=== PATIENT | female | born 1940 | race African-American/Black ===

== ENCOUNTER 2017-09-03 07:02 | Day surgery (SDC) | payer MEDICARE ==
[2017-09-03] MEDS ORDERED: NALOXONE HCL INJ/PF 0.4 MG/1 ML SDV ONE (07:20)
[2017-09-03] MEDS ORDERED: MIDAZOLAM 2 MG/2 ML INJ ONE (07:20)
[2017-09-03] MEDS ORDERED: ONDANSETRON HCL INJ/PF 4 MG/2 ML SDV ONE (07:20)
[2017-09-03] MEDS ORDERED: EPINEPHRINE INJ 1 MG/10 ML DISP.SYRIN ONE (07:21)
[2017-09-03] MEDS ORDERED: GLUCAGON,HUMAN RECOMB 1 MG INJ ONE (07:21)
[2017-09-03] MEDS ORDERED: FLUMAZENIL INJ 0.5 MG/5 ML VIAL ONE (07:21)
[2017-09-03] MEDS: FENTANYL CITRATE INJ/PF 100 MCG/2 ML AMPUL ONE ×2 (07:39→07:44)
--- NOTE | 2017-09-03 08:13 | PDOC DISCHARGE SUMMARY ---
Discharge Summary (SDC) - Discharge Final Diagnosis: colonic polyps Date of Surgery: 09/03/17 Discharge Date: 09/03/17 Condition: Good Treatment or Instructions: [facility] [place] [id number] POST ENDOSCOPY DISCHARGE INSTRUCTIONS 1. Diet: Start clear liquids that a regular diet as tolerated. 2. Resume all preoperative medications. All oral anticoagulants and aspirins can be resumed 24 hours after procedure. 3. If a polypectomy was performed some bleeding per rectum may occur. This should stop within 3 days. If not, please contact the office. 4. If you had a colonoscopy you may experience some bloating and delayed return of normal bowel function for several days, your regular bowel movement pattern should resume within a week. 5. Please contact [facility] at to make an appointment with Dr. Duncan for 1 to 3 weeks following procedure. 6. If you have any questions or concerns regarding your care,treatment plan or follow up, please contact our office. 7. Per clinical guidelines we recommend you undergo a repeat colonoscopy in three years. Referrals: JUAN CALDERON MD [Primary Care Provider] - Discharge Diet: As Tolerated Discharge Activity: Activity As Tolerated Home Care Assistance: None Needed Report the Following to Your Physician Immediately: Shortness of Breath, Increase in Pain, Fever over 101 Degrees
--- NOTE | 2017-09-03 08:53 | OPERATIVE REPORT E ---
Operative Report NAME: REGULO HINES : 1940 AGE: 77Y DATE OF SURGERY: 09/03/2017 ROOM: PREOPERATIVE DIAGNOSIS: Need for screening colonoscopy in average risk patient for colorectal carcinoma. POSTOPERATIVE DIAGNOSIS: Need for screening colonoscopy in average risk patient for colorectal carcinoma with 2 ascending colon polyps. PROCEDURES: 1. Total colonoscopy to the cecum with photo documentation. 2. Ascending colon polypectomy. SURGEON: KATIE MICHEL M.D. ANESTHESIA: Conscious sedation. COMPLICATIONS: None. ESTIMATED BLOOD LOSS: None. DRAINS: None. TISSUE REMOVED OR ALTERED: One polyp. FINDINGS: See below. SUMMARY OF PROCEDURE: After obtaining informed consent, the patient was taken to the endoscopy suite where she was placed in the supine position, surgical timeout conducted. Appropriate level of conscious sedation induced. Patient was placed in the left lateral decubitus position. Rectal exam was performed. There was no visible path of light of active pathology. The flexible adult colonoscope was advanced through the anorectal canal all the way to the cecum. Visualization of the relevant cecal anatomy, including ileocecal valve, appendiceal orifice were appreciated. Photos were taken. This was an excellent study on a well-prepped bowel. The scope was withdrawn slowly examining the mucosa carefully. In the ascending colon were 2 polyps, 1 approximately 3 mm, the other approximately 3.5 mm in diameter, both sessile. The first polyp was removed with a hot snare device medium strength, and retrieved with the trap. It was labeled ascending colon polyp. We did reinspect the polypectomy site and there was evidence of full mucosal removal. The deeper layers of the bowel wall appeared to be intact. Photo taken. The second small ascending colon polyp was sessile and very awkward to both visualize and reposition in a satisfactory manner to facilitate removal, so it was left in situ. The scope was withdrawn the length of the colon checking the mucosa carefully. No other polyps, tumors, or strictures seen. The scope was brought back through the anorectal canal. No other pathology seen. The patient tolerated the procedure well. She was taken to the post endoscopy recovery area in stable condition. Per surveillance guidelines, the patient will be appropriate candidate for followup colonoscopy in 3 years, or sooner if symptoms develop. DICTATING PHYSICIAN: KATIE MICHEL M.D. [id number] PHY#: [id number] ID: [id number] JOB#: [id number] ACCT: [id number] cc:KATIE MICHEL M.D. >
[2017-09-03 09:15] VITALS: BP 135/78
== END 2017-09-03 09:22 | disposition home or self-care (01) ==
LOC: END 07:02
PROVIDERS: ATTEND Surgery
PROC: 0DBK8ZX Excision of Ascending Colon, Via Natural or Artificial Opening Endoscopic, Diagnostic (ICD-10-PCS; principal; 2017-09-03 07:30)
DX: Z12.11 Encounter for screening for malignant neoplasm of colon (principal); D12.2 Benign neoplasm of ascending colon; M19.90 Unspecified osteoarthritis, unspecified site; E78.00 Pure hypercholesterolemia, unspecified; I10 Essential (primary) hypertension; I25.10 Atherosclerotic heart disease of native coronary artery without angina pectoris; Z79.899 Other long term (current) drug therapy; Z79.02 Long term (current) use of antithrombotics/antiplatelets
CPT/HCPCS: 45385; 88305 ×2; J2250; J3010; J0171; J1610; J2310; J2405; J3490

== ENCOUNTER 2019-04-02 07:36 | Inpatient (IN) | payer MEDICARE ==
[2019-04-02] MEDS ORDERED: ACETAMINOPHEN 325 MG TABLET PO ONE (08:23)
[2019-04-02] MEDS ORDERED: LIDOCAINE 5% (700 MG) TRANSDERMAL ADH..PATCH TP ONE (08:24)
[2019-04-02] MEDS ORDERED: NORMAL SALINE 1000 ML 1,000 ML IV ONE (08:28)
--- NOTE | 2019-04-02 08:32 | ER Document Report ---
ED General - General Chief Complaint: Back Pain Stated Complaint: BACK PAIN Time Seen by Provider: 04/02/19 08:06 Notes: Patient is a 78-year-old female who presents to the emergency department with low back pain. Her pain started 9 days ago. She was picking up a bucket of water and felt a strain in her back. 2 days ago she went to see her primary care provider and was treated with Toradol, but she states that she still continues to have pain. Nothing makes the pain any better. Moving around makes the pain worse. Patient states that her last bowel movement was 3 days ago, which is unusual for her. She is now complaining of abdominal pain also. She has a past medical history of seasonal allergies, CT in 2005, hypertension, marla min D deficiency, GERD, and hyperlipidemia. Denies any chest pain, shortness of breath, difficulty breathing. TRAVEL OUTSIDE OF THE [place] IN LAST 30 DAYS: No - Related Data Allergies/Adverse Reactions: No Known Allergies Allergy (Verified 09/03/17 07:26) Past Medical History - General Information source: Patient - Social History Smoking Status: Never Smoker Family History: Reviewed & Not Pertinent - Past Medical History Cardiac Medical History: Reports: Hx Coronary Artery Disease, Hx Hypertension Denies: Hx Heart Attack Pulmonary Medical History: Denies: Hx Asthma, Hx Bronchitis, Hx COPD, Hx Pneumonia Neurological Medical History: Denies: Hx Cerebrovascular Accident, Hx Seizures Musculoskeletal Medical History: Reports Hx Arthritis Past Surgical History: Reports: Hx Hysterectomy. Denies: Hx Pacemaker - Immunizations Hx Diphtheria, Pertussis, Tetanus Vaccination: No Hx Pneumococcal Vaccination: 05/03/15 Review of Systems - Review of Systems Notes: REVIEW OF SYSTEMS: CONSTITUTIONAL : Denies recent illness. Denies recent unintentional weight loss. Denies fever, chills, or sweats. EENT: Denies eye, ear, throat, or mouth pain, discharge, or symptoms. Denies nasal or sinus congestion. CARDIOVASCULAR: Denies chest pain. RESPIRATORY: Denies shortness of breath, cough, congestion, difficulty breathing , or wheezing. GASTROINTESTINAL: See HPI. GENITOURINARY: Denies difficulty urinating, burning, blood in urine, urgency or frequency. MUSCULOSKELETAL: See HPI. Denies joint pain or swelling. SKIN: Denies rash, itchiness, or lesions HEMATOLOGIC : Denies easy bruising or bleeding. LYMPHATIC: Denies swollen, painful, enlarged glands. NEUROLOGICAL: Denies no numbness or tingling denies weakness. Denies headache. Denies altered mental status. Denies alteration in speech. PSYCHIATRIC: Denies stress, anxiety, alteration in sleep patterns, or depression. All other systems reviewed and negative. Physical Exam - Vital signs Vitals: Temp Pulse Resp BP 97.9 F 70 16 168/73 H 04/02/19 07:45 04/02/19 07:45 04/02/19 07:45 04/02/19 07:45 - Notes Notes: PHYSICAL EXAMINATION: GENERAL: Appears well, healthy, well-nourished, no acute distress. HEAD: Normocephalic, atraumatic. EYES: PERRL, conjunctiva normal, all extraocular movements intact, sclera nonicteric ENT: Moist mucous membranes. NECK: Supple, no noticeable swelling, redness, rash. Normal range of motion. LUNGS: Equal breath sounds bilaterally and clear to auscultation. No wheezes rales or rhonchi. CARDIOVASCULAR: S1-S2, regular rate, regular rhythm. Radial pulses 2+, normal. ABDOMEN: Normoactive bowel sounds. Soft, nontender, no guarding, no rebound tenderness, and no masses palpated. EXTREMITIES: Normal strength and range of motion, no pitting or edema. No cyanosis. NEUROLOGICAL: Moves all extremities upon command. Strength 5/5 in all extremities. PSYCH: Normal mood, normal affect. SKIN: Warm, dry. No rash, lesions, ulcerations noted. Normal skin turgor. MSK: Tender Right lower back. Course - Re-evaluation Re-evalutation: 04/02/19 08:32 Patient will have basic labs drawn and will be sent for CT of the abdomen/pelvis, to rule in/out any abdomen or pelvis etiology. 04/02/19 10:45 Patient is anemic with a hemoglobin of 8.8 and hematocrit of 26.5. Her calcium is 12.3 and she has a creatinine of 1.80. She is receiving fluids at this time. The last laboratory values I have on the patient are from 2010, so I do not have a recent comparison. Her troponin is indeterminate at this time. Patient has protein in her urine and a moderate amount of blood. Awaiting CT of the abdomen and pelvis. 04/02/19 11:[address] shows diffuse bone lytic lesions that are suggestive of metastatic disease or myeloma. There is also a mass on the right kidney did according to the radiologist, this could be a renal cell carcinoma. I will contact Dr. Sterling, the oncologist inclusion paraeducator. I also reported these results to the patient and she states that she did have uterine cancer in 2005, which resulted in a hysterectomy, she went routinely to have CTs and labs drawn, but states that she has not been in a while. Her oncologist has since retired. 04/02/19 12:[address] Solo in regards to this patient's case. She states that the test could be done outpatient, but her calcium needs to be corrected. She is recommending that I call Dr. Bennett and see if she can be admitted inpatient and correct the hypercalcemia, and possibly have her other diagnostic tests to be done outpatient. 04/02/19 12:[address] Givens, who is covering for Dr. Bennett. The patient will be treated for her hypercalcemia here in the hospital. 04/02/19 12:27 CT called and told me that the patient should really have CTs with IV contrast. Since she has already had contrast today, they are recommending that the CT studies to be done tomorrow. - Vital Signs Vital signs: Temp Pulse Resp BP Pulse Ox 98.0 F 80 16 145/64 H 97 04/02/19 19:28 04/02/19 19:28 04/02/19 19:28 04/02/19 19:28 04/02/19 19:28 - Laboratory Result Diagrams: 04/02/19 08:52 04/02/19 08:52 Laboratory results interpreted by me: 04/02/19 04/02/19 04/02/19 08:52 08:52 08:52 RBC 3.12 L Hgb 8.8 L Hct 26.5 L RDW 17.1 H Reticulocyte # 0.027 L BUN 41 H Creatinine 1.80 H Est GFR ( Amer) 33 L Est GFR (MDRD) Non-Af 27 L Glucose 115 H Calcium 12.3 H* TIBC Direct Bilirubin 0.5 H Total Protein 9.4 H Vitamin B12 Urine Protein Urine Blood 04/02/19 04/02/19 08:52 10:00 RBC Hgb Hct RDW Reticulocyte # BUN Creatinine Est GFR ( Amer) Est GFR (MDRD) Non-Af Glucose Calcium TIBC 234 L Direct Bilirubin Total Protein Vitamin B12 202.0 L Urine Protein 100 H Urine Blood MODERATE H Discharge - Discharge Clinical Impression: Hypercalcemia, Right flank pain Condition: Stable Disposition: ADMITTED INPATIENT Admitting Provider: Sabrina Unit Admitted: [facility]
[2019-04-02 09:07] LABS: ABSOLUTE BASOPHILS # (AUTO) 0.1 10^3/uL (0.0-0.2); ABSOLUTE EOSINOPHILS # (AUTO) 0.1 10^3/uL (0.0-0.6); ABSOLUTE LYMPHOCYTES (AUTO) 1.3 10^3/uL (0.5-4.7); ABSOLUTE MONOCYTES (AUTO) 0.4 10^3/uL (0.1-1.4); ABSOLUTE NEUT (AUTO) 5.6 10^3/uL (1.7-8.2); BASOPHILS % (AUTO) 1.2 % (0-2); EOSINOPHILS % (AUTO) 1.8 % (0-6); HEMATOCRIT 26.5 % (36.0-47.0); HEMOGLOBIN 8.8 g/dL (12.0-15.5); LYMPHOCYTES % (AUTO) 17.3 % (13-45); MEAN CORPUSCULAR HEMOGLOBIN 28.4 pg (27.0-33.4); MEAN CORPUSCULAR HGB CONC 33.3 g/dL (32.0-36.0); MEAN CORPUSCULAR VOLUME 85 fl (80-97); MONOCYTES % (AUTO) 5.9 % (3-13); PLATELET COUNT 257 10^3/uL (150-450); RED BLOOD COUNT 3.12 10^6/uL (3.72-5.28); RED CELL DISTRIBUTION WIDTH 17.1 % (11.5-14.0); SEGMENTED NEUTROPHILS % (AUTO) 73.8 % (42-78); TOTAL CELLS COUNTED % (AUTO) 100 %; WHITE BLOOD COUNT 7.6 10^3/uL (4.0-10.5)
[2019-04-02 09:29] LABS: ALBUMIN 3.5 g/dL (3.5-5.0); ALKALINE PHOSPHATASE 56 U/L (38-126); ANION GAP 7 (5-19); ASPARTATE AMINO TRANSFERASE 26 U/L (14-36); BILIRUBIN,DIRECT 0.5 mg/dL (0.0-0.4); BILIRUBIN,TOTAL 0.6 mg/dL (0.2-1.3); BLOOD UREA NITROGEN 41 mg/dL (7-20); CARBON DIOXIDE 29 mmol/L (22-30); CHLORIDE 106 mmol/L (98-107); CREATINE KINASE 64 U/L (30-135); GLUCOSE 115 mg/dL (75-110); POTASSIUM 4.5 mmol/L (3.6-5.0); TOTAL PROTEIN 9.4 g/dL (6.3-8.2)
[2019-04-02 09:38] LABS: CALCIUM 12.3 mg/dL (8.4-10.2)
[2019-04-02 09:41] LABS: CREATINE KINASE MB 0.48 ng/mL (<4.55); TROPONIN I 0.017 ng/mL
--- NOTE | 2019-04-02 09:58 | EKG REPORT ---
SEVERITY:- ABNORMAL ECG - SINUS RHYTHM COMPLETE LBBB : Confirmed by: Abiel Esposito MD 02-Apr-2019 09:57:57
[2019-04-02 10:19] LABS: AMORPHOUS SEDIMENT,URINE TRACE /HPF; APPEARANCE,URINE CLOUDY; BILIRUBIN,URINE NEGATIVE (NEGATIVE); COLOR,URINE YELLOW; GLUCOSE, URINE NEGATIVE (NEGATIVE); KETONES,URINE NEGATIVE (NEGATIVE); LEUKOCYTE ESTERASE,URINE NEGATIVE (NEGATIVE); NITRITE,URINE NEGATIVE (NEGATIVE); PROTEIN,URINE 100 mg/dL (NEGATIVE); URINE SPECIFIC GRAVITY 1.021; UROBILINOGEN,URINE NEGATIVE mg/dL (<2.0)
--- NOTE | 2019-04-02 11:41 | RADIOLOGY REPORT (SQ) ---
EXAM DESCRIPTION: CT ABD/PELVIS WITH IV ORAL COMPLETED DATE/TIME: 04/02/2019 11:24 am REASON FOR STUDY: back pain; abd pain COMPARISON: None. TECHNIQUE: CT scan of the abdomen and pelvis performed with intravenous and oral contrast using efrain enrique scanning technique with dynamic intravenous contrast injection. Images reviewed with lung, soft t issue, and bone windows. Reconstructed coronal and sagittal MPR images reviewed. Delayed images for e valuation of the urinary system also acquired. All images stored on PACS. All CT scanners at this facility use dose modulation, iterative reconstruction, and/or weight based d osing when appropriate to reduce radiation dose to as low as reasonably achievable (ALARA). [facility]: Dose Right [facility]: CareDose [facility]: Dose Right [facility]: Teradose 4D [facility]: BlaBlaCar CONTRAST TYPE AND DOSE: contrast/concentration: Isovue 300.00 mg/ml; Total Contrast Delivered: 99.0 ml; Total Saline Delivered: 69.0 ml RENAL FUNCTION: Creatinine 1.8 RADIATION DOSE: CT Rad equipment meets quality standard of care and radiation dose reduction techniq ues were employed. CTDIvol: 16.9 - 19.4 mGy. DLP: 1842 mGy-cm.. LIMITATIONS: None. FINDINGS: LOWER CHEST: No significant findings. No nodules or infiltrates. LIVER: Fatty. SPLEEN: Normal size. No focal lesions. PANCREAS: No masses. No significant calcifications. No adjacent inflammation or peripancreatic fluid collections. Pancreatic duct not dilated. GALLBLADDER: Surgically absent. 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 Minimal nodularity on the left. RIGHT KIDNEY AND URETER: No stones or obstruction. Faint roughly ovoid low density 2 cm mass at the midpole. Indeterminate. All Hounsfield units are greater than 30. LEFT KIDNEY AND URETER: No solid masses. No significant calcification. No hydronephrosis or hydrouret er. AORTA AND VESSELS: No aneurysm. No dissection. Renal arteries, SMA, celiac without stenosis. RETROPERITONEUM: No retroperitoneal adenopathy, hemorrhage or masses. BOWEL AND PERITONEAL CAVITY: No obstruction. No visualized masses. No free fluid. No inflammatory ch anges or thickening of bowel wall. APPENDIX: Normal. PELVIS: No significant masses. Normal bladder. No free fluid. ABDOMINAL WALL: No masses. No hernias. BONES: Upper endplate depression fracture at L5. Acuity indeterminate. Spondylosis otherwise. Ther e are numerous lytic bone lesions, however. Thoracic and lumbar spine as well as pelvis and ribs. OTHER: No other significant finding. IMPRESSION: 1. Diffuse bone lytic lesions are suggestive of metastatic disease or myeloma. 2. Ill-defined mass in the right kidney. Renal cell carcinoma is in the differential. TECHNICAL DOCUMENTATION: JOB ID: [id number] Quality ID # [id number]: Final reports with documentation of one or more dose reduction techniques (e.g., Au tomated exposure control, adjustment of the mA and/or kV according to patient size, use of iterative reconstruction technique) 2010 [employer]- All Rights Reserved Reading location - IP/workstation name: FOREMAN OR SUPERVISOR AND OPERATOR-[email or web address]
[2019-04-02] MEDS ORDERED: NORMAL SALINE 1000 ML 1,000 ML IV PRN (12:24)
[2019-04-02] MEDS ORDERED: ACETAMINOPHEN 325 MG TABLET PO PRN (12:24)
[2019-04-02] MEDS ORDERED: MORPHINE SULFATE 10 MG/ML INJ IV ONE (12:53)
[2019-04-02 13:01] LABS: IRON(TIBC) 64.8 ug/dL (37-170)
[2019-04-02 13:06] LABS: ABSOLUTE RETICS # 0.027 10^6/uL (0.028-0.122); RETICULOCYTE COUNT (AUTO) 0.87 % (0.66-2.85)
[2019-04-02] MEDS: ONDANSETRON HCL INJ/PF 4 MG/2 ML SDV IV PRN (13:07)
[2019-04-02] MEDS ORDERED: CETIRIZINE 10 MG TABLET PO PRN (15:01)
[2019-04-02] MEDS: OXYCODONE-ACETAMINOPHEN 5-325 MG TABLET PO PRN ×2 (17:18→21:17)
--- NOTE | 2019-04-02 17:33 | PDOC H&P ---
History of Present Illness Admission Date/PCP: 04/02/19 12:40 JUAN CALDERON MD Patient complains of: Back pain History of Present Illness: REGULO HINES is a 78 year old female This is a 78-year-old female patient of Dr. Calderon with a history of uterine cancer in 2006 currently follow with the [facility] last seen 2 years back in [place] came to the emergency department with a complaint of low back pain for last 10 days According to the patient's complaining from more right-sided flank pain patient's tried all the pain medication including the patient's went to the primary care doctor given Toradol still not helping much Patients denied any nausea no vomiting In the emergency department patient initial CT scan of the abdomen pelvis done series ill-defined right renal mass and lytic lesion with suggesting questionable multiple myeloma versus other cell carcinoma Patient's calcium is also 12.8 Patient's denied any blood in the urine but urine micro is positive for blood Patient is denied any blood in the stools no black stools Patient had a history of the coronary artery disease status post stent placement several years back currently taking Plavix for that When I saw the patient in the floor denied any chest pain to than any shortness of the breath Patient is received IV morphine and oxycodone for the pain Admit the patient in the hospital for the hypercalcemia management and further evaluations Past Medical History Cardiac Medical History: Reports: Coronary Artery Disease, Hypertension Denies: Myocardial Infarction Cardiac History Note: Status post stent placement Pulmonary Medical History: Denies: Asthma, Bronchitis, Chronic Obstructive Pulmonary Disease (COPD), Pneumonia Neurological Medical History: Denies: Seizures Malignancy History Note: Uterine cancer Musculoskeltal Medical History: Reports: Arthritis Psychiatric Medical History: Reports: Depression Hematology: Reports: Anemia - 2006 Past Surgical History Past Surgical History: Reports: Hysterectomy Denies: Pacemaker Social History Information Source: Patient Smoking Status: Never Smoker Frequency of Alcohol Use: None Hx Recreational Drug Use: No Hx Prescription Drug Abuse: No Family History Family History: Reviewed & Not Pertinent Parental Family History Reviewed: Yes Children Family History Reviewed: Yes Sibling(s) Family History Reviewed.: Yes Medication/Allergy Home Medications: Carvedilol [Coreg 25 mg Tablet] 25 mg PO Q12 04/02/19 Cetirizine HCl [Zyrtec 10 mg Tablet] 10 mg PO DAILYP PRN 04/02/19 Clopidogrel Bisulfate [Plavix 75 mg Tablet] 75 mg PO DAILY 04/02/19 Ergocalciferol (Vitamin D2) [Drisdol 50,000 Unit (1.25MG) Capsule] 50,000 unit PO .[id number] 04/02/19 Ketorolac Tromethamine [Toradol 10 mg Tablet] 10 mg PO Q6HP PRN 04/02/19 Losartan/Hydrochlorothiazide [Losartan-Hctz 100-25 mg Tab] 1 each PO DAILY 04/02/19 Omeprazole 20 mg PO DAILYP PRN 04/02/19 Potassium Chloride [Klor-Con 10 Meq Capsule ER] 20 meq PO QHS 04/02/19 Pravastatin Sodium [Pravachol] 40 mg PO QHS 04/02/19 Allergies/Adverse Reactions: No Known Allergies Allergy (Verified 09/03/17 07:26) Review of Systems Constitutional: ABSENT: chills, fever(s), headache(s), weight gain, weight loss Eyes: ABSENT: visual disturbances Ears: ABSENT: hearing changes Cardiovascular: ABSENT: chest pain, dyspnea on exertion, edema, orthropnea, palpitations Respiratory: ABSENT: cough, hemoptysis Gastrointestinal: ABSENT: abdominal pain, constipation, diarrhea, hematemesis, hematochezia, nausea, vomiting Genitourinary: ABSENT: dysuria, hematuria Musculoskeletal: ABSENT: joint swelling Integumentary: ABSENT: rash, wounds Neurological: ABSENT: abnormal gait, abnormal speech, confusion, dizziness, fo enrique weakness, syncope Psychiatric: ABSENT: anxiety, depression, homidical ideation, suicidal ideation Endocrine: ABSENT: cold intolerance, heat intolerance, menstrual abnormalities, polydipsia, polyuria Hematologic/Lymphatic: ABSENT: easy bleeding, easy bruising, lymphadenopathy Physical Exam Vital Signs: Temp Pulse Resp BP Pulse Ox 97.6 F 74 18 149/62 H 99 04/02/19 16:04 04/02/19 16:04 04/02/19 16:04 04/02/19 16:04 04/02/19 16:04 Intake & Output 04/01/19 04/02/19 04/03/19 06:59 06:59 06:59 Weight 94.2 kg General appearance: PRESENT: no acute distress, well-developed, well-nourished Head exam: PRESENT: atraumatic, normocephalic Eye exam: PRESENT: conjunctiva pink, EOMI, PERRLA. ABSENT: scleral icterus Ear exam: PRESENT: normal external ear exam Mouth exam: PRESENT: moist, tongue midline Neck exam: PRESENT: full ROM. ABSENT: carotid bruit, JVD, lymphadenopathy, thyromegaly Respiratory exam: PRESENT: clear to auscultation loki Cardiovascular exam: PRESENT: RRR. ABSENT: diastolic murmur, rubs, systolic mur mur Pulses: PRESENT: normal dorsalis pedis pul, +2 pedal pulses bilateral Vascular exam: PRESENT: normal capillary refill GI/Abdominal exam: PRESENT: normal bowel sounds, soft. ABSENT: distended, guarding, mass, organolmegaly, rebound, tenderness Rectal exam: PRESENT: deferred Extremities exam: ABSENT: pedal edema Neurological exam: PRESENT: alert, awake, oriented to person, oriented to place, oriented to time, oriented to situation, CN II-XII grossly intact. ABSENT: motor sensory deficit Psychiatric exam: PRESENT: appropriate affect, normal mood. ABSENT: homicidal ideation, suicidal ideation Skin exam: PRESENT: dry, intact, warm. ABSENT: cyanosis, rash Results Laboratory Results: 04/02/19 08:52 04/02/19 08:52 04/02/19 04/02/19 04/02/19 08:52 08:52 08:52 WBC 7.6 RBC 3.12 L Hgb 8.8 L Hct 26.5 L MCV 85 MCH 28.4 MCHC 33.3 RDW 17.1 H Plt Count 257 Seg Neutrophils % 73.8 Retic Count (auto) 0.87 Sodium 141.5 Potassium 4.5 Chloride 106 Carbon Dioxide 29 Anion Gap 7 BUN 41 H Creatinine 1.80 H Est GFR ( Amer) 33 L Glucose 115 H Calcium 12.3 H* Iron TIBC % Saturation Ferritin Total Bilirubin 0.6 AST 26 Alkaline Phosphatase 56 Total Protein 9.4 H Albumin 3.5 Lipase 65.1 Vitamin B12 Folate TSH PTH Intact Urine Color Urine Appearance Urine pH Ur Specific [place] Urine Protein Urine Glucose (UA) Urine Ketones Urine Blood Urine Nitrite Ur Leukocyte Esterase Urine WBC (Auto) Urine RBC (Auto) 04/02/19 04/02/19 04/02/19 08:52 08:52 10:00 WBC RBC Hgb Hct MCV MCH MCHC RDW Plt Count Seg Neutrophils % Retic Count (auto) Sodium Potassium Chloride Carbon Dioxide Anion Gap BUN Creatinine Est GFR ( Amer) Glucose Calcium Iron 64.8 TIBC 234 L % Saturation 28 Ferritin 154.00 Total Bilirubin AST Alkaline Phosphatase Total Protein Albumin Lipase Vitamin B12 202.0 L Folate 10.50 TSH 1.37 PTH Intact Urine Color YELLOW Urine Appearance CLOUDY Urine pH 5.0 Ur Specific [place] 1.021 Urine Protein 100 H Urine Glucose (UA) NEGATIVE Urine Ketones NEGATIVE Urine Blood MODERATE H Urine Nitrite NEGATIVE Ur Leukocyte Esterase NEGATIVE Urine WBC (Auto) 7 Urine RBC (Auto) 3 04/02/19 15:10 WBC RBC Hgb Hct MCV MCH MCHC RDW Plt Count Seg Neutrophils % Retic Count (auto) Sodium Potassium Chloride Carbon Dioxide Anion Gap BUN Creatinine Est GFR ( Amer) Glucose Calcium Iron TIBC % Saturation Ferritin Total Bilirubin AST Alkaline Phosphatase Total Protein Albumin Lipase Vitamin B12 Folate TSH PTH Intact 7.8 L Urine Color Urine Appearance Urine pH Ur Specific [place] Urine Protein Urine Glucose (UA) Urine Ketones Urine Blood Urine Nitrite Ur Leukocyte Esterase Urine WBC (Auto) Urine RBC (Auto) 04/02/19 04/02/19 08:52 08:52 Creatine Kinase 64 CK-MB (CK-2) 0.48 Troponin I 0.017 Impressions: Abdomen/Pelvis CT 04/02/19 00:00 IMPRESSION: 1. Diffuse bone lytic lesions are suggestive of metastatic disease or myeloma. 2. Ill-defined mass in the right kidney. Renal cell carcinoma is in the differential. Assessment & Plan - Time Time Spent: 50 to 70 Minutes Medications reviewed and adjusted accordingly: Yes Anticipated discharge: Home, Other Within: Other - Inpatient Certification I certify that my determination is in accordance with my understanding of Medicare's requirements for reasonable and necessary INPATIENT services [42 CFR 412.3e].: Yes Medical Necessity: Significant Comorbidiites Make Outpatient Treatment Too Risky, Need Close Monitoring Due to Risk of Patient Decompensation, Need For IV Fluids Post Hospital Care: D/C Sandwich Counter Attendant Documentation - Plan Summary Plan Summary: Admit the patient in IMCU Start the patient on IV fluid for the hypercalcemia Part of the CT of the chest and CT of the LS spine Consult oncology Discussed with the patient and assisted with the bedside regarding the patient's current conditions all plans
--- NOTE | 2019-04-02 17:33 | PDOC CONSULTATION ---
Consultation Consult Date: 04/02/19 Provider Consulted: ELISE GARNETT Consult reason:: Hematology/Oncology consultation was requested for patient with hypercalcemia and scans consistent with kidney mass and bone metastases. History of Present Illness Admission Date/PCP: 04/02/19 12:40 JUAN CALDERON MD History of Present Illness: REGULO HINES is a 78 year old female who was treated for uterine cancer in [address] Fisher in [place]. She had hysterectomy and radiation, but no chemo. She has not been seen by Onoclogy for 2 years. She currently follows with Dr. Blevins and is up to date on mammograms and colonoscopies. She states that a few weeks ago, she had sudden, severe pain in her back after picking up a bucket full of water. She waited 7 days before presenting to her PCP. X-rays were taken and showed only muscle strain and arthritis. However, pain progressed and is now throughout her abdomen. Worse with any movement. She stopped eating and has not had BM x 3 days. She is asking for meds for her pain now. She has also had anemia all her life. She has never been treated with B12 shots or IV iron. She had bleeding while on ASA and plavix. Past Medical History Cardiac Medical History: Reports: Coronary Artery Disease, Hyperlipidema, Hypertension Denies: Myocardial Infarction Pulmonary Medical History: Reports: Asthma Denies: Bronchitis, Chronic Obstructive Pulmonary Disease (COPD), Pneumonia Neurological Medical History: Denies: Seizures Malignancy Medical History: Reports: Other - Uterine cancer in 2006 Musculoskeltal Medical History: Reports: Arthritis Psychiatric Medical History: Reports: Depression Hematology: Reports: Anemia - 2006 Past Surgical History Past Surgical History: Reports: Cholecystectomy, Hysterectomy Denies: Pacemaker Social History Information Source: Patient Smoking Status: Never Smoker Family History Parental Family History Reviewed: Yes - Mother with pancreatic cancer Children Family History Reviewed: Yes - child with RA Sibling(s) Family History Reviewed.: Yes - Brother with prostate cancer Medication/Allergy Home Medications: Carvedilol [Coreg 25 mg Tablet] 25 mg PO Q12 04/02/19 Cetirizine HCl [Zyrtec 10 mg Tablet] 10 mg PO DAILYP PRN 04/02/19 Clopidogrel Bisulfate [Plavix 75 mg Tablet] 75 mg PO DAILY 04/02/19 Ergocalciferol (Vitamin D2) [Drisdol 50,000 Unit (1.25MG) Capsule] 50,000 unit PO .[id number] 04/02/19 Ketorolac Tromethamine [Toradol 10 mg Tablet] 10 mg PO Q6HP PRN 04/02/19 Losartan/Hydrochlorothiazide [Losartan-Hctz 100-25 mg Tab] 1 each PO DAILY 04/02/19 Omeprazole 20 mg PO DAILYP PRN 04/02/19 Potassium Chloride [Klor-Con 10 Meq Capsule ER] 20 meq PO QHS 04/02/19 Pravastatin Sodium [Pravachol] 40 mg PO QHS 04/02/19 Allergies/Adverse Reactions: No Known Allergies Allergy (Verified 09/03/17 07:26) Review of Systems Constitutional: ABSENT: fever(s), headache(s) Eyes: ABSENT: visual disturbances Ears: ABSENT: hearing changes Nose, Mouth, and Throat: ABSENT: headache(s) Cardiovascular: ABSENT: chest pain Respiratory: ABSENT: dyspnea Gastrointestinal: PRESENT: abdominal pain, constipation Genitourinary: ABSENT: dysuria Musculoskeletal: PRESENT: back pain Neurological: ABSENT: confusion, memory loss Hematologic/Lymphatic: PRESENT: easy bleeding Physical Exam Vital Signs: Temp Pulse Resp BP Pulse Ox 97.6 F 74 18 149/62 H 99 04/02/19 16:04 04/02/19 16:04 04/02/19 16:04 04/02/19 16:04 04/02/19 16:04 Intake & Output 04/01/19 04/02/19 04/03/19 06:59 06:59 06:59 Weight 94.2 kg General appearance: PRESENT: no acute distress, well-developed, well-nourished Exam: 78 year old female. Sister is at bedside. Head exam: PRESENT: normocephalic Eye exam: PRESENT: EOMI, PERRLA Mouth exam: PRESENT: neck supple Neck exam: ABSENT: lymphadenopathy, tenderness Respiratory exam: PRESENT: clear to auscultation loki, unlabored Cardiovascular exam: PRESENT: RRR GI/Abdominal exam: PRESENT: soft. ABSENT: organolmegaly, tenderness Extremities exam: ABSENT: pedal edema Musculoskeletal exam: PRESENT: other - pain with movements. Neurological exam: PRESENT: alert, awake Psychiatric exam: PRESENT: appropriate affect Skin exam: PRESENT: normal color Results Laboratory Results: 04/02/19 08:52 04/02/19 08:52 04/02/19 04/02/19 04/02/19 08:52 08:52 08:52 WBC 7.6 RBC 3.12 L Hgb 8.8 L Hct 26.5 L MCV 85 MCH 28.4 MCHC 33.3 RDW 17.1 H Plt Count 257 Seg Neutrophils % 73.8 Retic Count (auto) 0.87 Sodium 141.5 Potassium 4.5 Chloride 106 Carbon Dioxide 29 Anion Gap 7 BUN 41 H Creatinine 1.80 H Est GFR ( Amer) 33 L Glucose 115 H Calcium 12.3 H* Iron TIBC % Saturation Ferritin Total Bilirubin 0.6 AST 26 Alkaline Phosphatase 56 Total Protein 9.4 H Albumin 3.5 Lipase 65.1 Vitamin B12 Folate TSH PTH Intact Urine Color Urine Appearance Urine pH Ur Specific [place] Urine Protein Urine Glucose (UA) Urine Ketones Urine Blood Urine Nitrite Ur Leukocyte Esterase Urine WBC (Auto) Urine RBC (Auto) 04/02/19 04/02/19 04/02/19 08:52 08:52 10:00 WBC RBC Hgb Hct MCV MCH MCHC RDW Plt Count Seg Neutrophils % Retic Count (auto) Sodium Potassium Chloride Carbon Dioxide Anion Gap BUN Creatinine Est GFR ( Amer) Glucose Calcium Iron 64.8 TIBC 234 L % Saturation 28 Ferritin 154.00 Total Bilirubin AST Alkaline Phosphatase Total Protein Albumin Lipase Vitamin B12 202.0 L Folate 10.50 TSH 1.37 PTH Intact Urine Color YELLOW Urine Appearance CLOUDY Urine pH 5.0 Ur Specific [place] 1.021 Urine Protein 100 H Urine Glucose (UA) NEGATIVE Urine Ketones NEGATIVE Urine Blood MODERATE H Urine Nitrite NEGATIVE Ur Leukocyte Esterase NEGATIVE Urine WBC (Auto) 7 Urine RBC (Auto) 3 04/02/19 15:10 WBC RBC Hgb Hct MCV MCH MCHC RDW Plt Count Seg Neutrophils % Retic Count (auto) Sodium Potassium Chloride Carbon Dioxide Anion Gap BUN Creatinine Est GFR ( Amer) Glucose Calcium Iron TIBC % Saturation Ferritin Total Bilirubin AST Alkaline Phosphatase Total Protein Albumin Lipase Vitamin B12 Folate TSH PTH Intact 7.8 L Urine Color Urine Appearance Urine pH Ur Specific [place] Urine Protein Urine Glucose (UA) Urine Ketones Urine Blood Urine Nitrite Ur Leukocyte Esterase Urine WBC (Auto) Urine RBC (Auto) 04/02/19 04/02/19 08:52 08:52 Creatine Kinase 64 CK-MB (CK-2) 0.48 Troponin I 0.017 Impressions: Abdomen/Pelvis CT 04/02/19 00:00 IMPRESSION: 1. Diffuse bone lytic lesions are suggestive of metastatic disease or myeloma. 2. Ill-defined mass in the right kidney. Renal cell carcinoma is in the differential. Status: Image reviewed by me Assessment & Plan - Diagnosis (1) B12 deficiency anemia Qualifiers: Vitamin B12 deficiency anemia type: unspecified B12 deficiency Qualified Code(s): D51.9 - Vitamin B12 deficiency anemia, unspecified Is this a current diagnosis for this admission?: Yes Plan: Will start PO B12 and consider injections if needed. Myeloma panel also pending. (2) Kidney mass Is this a current diagnosis for this admission?: Yes Plan: Work-up once Ca has stabilized. She will need to see urology as outpatient for this. (3) Hypercalcemia Is this a current diagnosis for this admission?: Yes Plan: IV fluids and miacalcin started now. Her kidney function is not such that bisphosphonate should be given now, but hopefully, by tomorrow, Cr will have im proved and it will be safer to try bisphosphonate if needed. (4) Right flank pain Is this a current diagnosis for this admission?: Yes Plan: Pain could be due to hypercalcemia or kidney mass. PRN pain meds per Dr. Givens. - Plan Summary Plan Summary: Patient was discussed with Dr. Givens
[2019-04-02] MEDS ORDERED: CALCITONIN,SALMON,SYNTHETIC 400 UNIT/2 ML VIAL IM SCH (18:00)
[2019-04-02] MEDS ORDERED: CALCITONIN,SALMON,SYNTHETIC 400 UNIT/2 ML VIAL ONE (18:33)
[2019-04-02] MEDS: ATORVASTATIN CALCIUM 10 MG TABLET PO SCH (21:16)
[2019-04-02] MEDS: CARVEDILOL 12.5 MG TABLET PO SCH (21:16)
[2019-04-02] MEDS ORDERED: (PENDING PHARMACY ID) (Pravastatin Sodium [Pravachol] 40 MG) PO SCH (22:00)
[2019-04-03 05:06] LABS: ABSOLUTE EOSINOPHILS # (AUTO) 0.1 10^3/uL (0.0-0.6); ABSOLUTE LYMPHOCYTES (AUTO) 1.1 10^3/uL (0.5-4.7); ABSOLUTE MONOCYTES (AUTO) 0.4 10^3/uL (0.1-1.4); ABSOLUTE NEUT (AUTO) 5.3 10^3/uL (1.7-8.2); BASOPHILS % (AUTO) 0.6 % (0-2); EOSINOPHILS % (AUTO) 1.9 % (0-6); HEMATOCRIT 24.3 % (36.0-47.0); HEMOGLOBIN 8.1 g/dL (12.0-15.5); LYMPHOCYTES % (AUTO) 16.4 % (13-45); MEAN CORPUSCULAR HGB CONC 33.2 g/dL (32.0-36.0); MEAN CORPUSCULAR VOLUME 84 fl (80-97); MONOCYTES % (AUTO) 5.9 % (3-13); PLATELET COUNT 233 10^3/uL (150-450); RED BLOOD COUNT 2.89 10^6/uL (3.72-5.28); RED CELL DISTRIBUTION WIDTH 16.5 % (11.5-14.0); SEGMENTED NEUTROPHILS % (AUTO) 75.2 % (42-78); TOTAL CELLS COUNTED % (AUTO) 100 %
[2019-04-03 05:15] LABS: ANION GAP 7 (5-19); BLOOD UREA NITROGEN 29 mg/dL (7-20); CALCIUM 10.7 mg/dL (8.4-10.2); CARBON DIOXIDE 26 mmol/L (22-30); CHLORIDE 107 mmol/L (98-107); GLUCOSE 116 mg/dL (75-110); POTASSIUM 3.9 mmol/L (3.6-5.0)
[2019-04-03] MEDS: PANTOPRAZOLE SODIUM 40 MG TABLET.DR PO SCH (05:33)
[2019-04-03] MEDS: OXYCODONE-ACETAMINOPHEN 5-325 MG TABLET PO PRN ×3 (05:33→23:21)
[2019-04-03] MEDS ORDERED: MAGNESIUM SULFATE/D5W 1 GM/100 ML RTUPB IV ONE ×2 (06:30→16:58)
[2019-04-03] MEDS: CARVEDILOL 12.5 MG TABLET PO SCH (09:25)
[2019-04-03] MEDS: DOCUSATE SODIUM 100 MG CAPSULE PO SCH (09:26)
[2019-04-03] MEDS: ENOXAPARIN SODIUM INJ 30 MG/0.3 ML DISP.SYRIN SUBCUT SCH (09:26)
[2019-04-03] MEDS: CYANOCOBALAMIN (VITAMIN B-12) 1,000 MCG TABLET PO SCH (09:26)
--- NOTE | 2019-04-03 09:36 | EKG REPORT ---
SEVERITY:- ABNORMAL ECG - SINUS RHYTHM LEFT BUNDLE BRANCH BLOCK : Confirmed by: Abiel Esposito MD 03-Apr-2019 09:35:55
[2019-04-03] MEDS ORDERED: NORMAL SALINE 1000 ML 1,000 ML IV PRN (10:45)
--- NOTE | 2019-04-03 10:45 | PDOC PROGRESS REPORT ---
Subjective Progress Note for:: 04/03/19 Subjective:: Patient is currently doing fair Patient is requiring pain medications for back pain Patient's calcium is coming down to 10.7 Patient's magnesium is 1.0 currently replace Patient is denied any chest pain to than any shortness of the breath Reason For Visit: RENAL FAILURE, ANEMIA, RENAL CELL CA, HYPERCAPNIA Physical Exam Vital Signs: Temp Pulse Resp BP Pulse Ox 97.9 F 57 L 17 124/83 100 04/03/19 08:01 04/03/19 08:01 04/03/19 08:01 04/03/19 08:01 04/03/19 08:01 Intake & Output 04/02/19 04/03/19 04/04/19 06:59 06:59 06:59 Intake Total 100 Output Total 800 Balance -700 Weight 96.9 kg General appearance: PRESENT: no acute distress, well-developed, well-nourished Head exam: PRESENT: atraumatic, normocephalic Eye exam: PRESENT: conjunctiva pink, EOMI, PERRLA. ABSENT: scleral icterus Ear exam: PRESENT: normal external ear exam Mouth exam: PRESENT: moist, tongue midline Neck exam: PRESENT: full ROM. ABSENT: carotid bruit, JVD, lymphadenopathy, thyromegaly Respiratory exam: PRESENT: clear to auscultation loki Cardiovascular exam: PRESENT: RRR. ABSENT: diastolic murmur, rubs, systolic murmur Pulses: PRESENT: normal dorsalis pedis pul, +2 pedal pulses bilateral Vascular exam: PRESENT: normal capillary refill GI/Abdominal exam: PRESENT: normal bowel sounds, soft. ABSENT: distended, guarding, mass, organolmegaly, rebound, tenderness Rectal exam: PRESENT: deferred Neurological exam: PRESENT: alert, awake, oriented to person, oriented to place, oriented to time, oriented to situation, CN II-XII grossly intact. ABSENT: motor sensory deficit Psychiatric exam: PRESENT: appropriate affect, normal mood. ABSENT: homicidal ideation, suicidal ideation Skin exam: PRESENT: dry, intact, warm. ABSENT: cyanosis, rash Results Laboratory Results: 04/03/19 04:36 04/03/19 04:36 04/02/19 04/02/19 04/02/19 08:52 08:52 08:52 WBC RBC Hgb Hct MCV MCH MCHC RDW Plt Count Seg Neutrophils % Retic Count (auto) 0.87 Sodium Potassium Chloride Carbon Dioxide Anion Gap BUN Creatinine Est GFR ( Amer) Glucose Calcium Magnesium Iron 64.8 TIBC 234 L % Saturation 28 Ferritin 154.00 Vitamin B12 202.0 L Folate 10.50 TSH 1.37 PTH Intact 04/02/19 04/03/19 04/03/19 15:10 04:36 04:36 WBC 7.0 RBC 2.89 L Hgb 8.1 L Hct 24.3 L MCV 84 MCH 28.0 MCHC 33.2 RDW 16.5 H Plt Count 233 Seg Neutrophils % 75.2 Retic Count (auto) Sodium 139.5 Potassium 3.9 Chloride 107 Carbon Dioxide 26 Anion Gap 7 BUN 29 H Creatinine 1.57 H Est GFR ( Amer) 38 L Glucose 116 H Calcium 10.7 H Magnesium 1.0 L* Iron TIBC % Saturation Ferritin Vitamin B12 Folate TSH PTH Intact 7.8 L 04/02/19 04/02/19 08:52 08:52 Creatine Kinase 64 CK-MB (CK-2) 0.48 Troponin I 0.017 Impressions: Abdomen/Pelvis CT 04/02/19 00:00 IMPRESSION: 1. Diffuse bone lytic lesions are suggestive of metastatic disease or myeloma. 2. Ill-defined mass in the right kidney. Renal cell carcinoma is in the differential. Assessment & Plan - Diagnosis (1) Hypercalcemia Is this a current diagnosis for this admission?: Yes Plan: Continues to IV fluid (2) Back pain Qualifiers: Back pain laterality: unspecified Is this a current diagnosis for this admission?: Yes Plan: Most likely a metastatic lesion continues the pain medications (3) Hypertension Qualifiers: Hypertension type: essential hypertension Qualified Code(s): I10 - Essential (primary) hypertension Is this a current diagnosis for this admission?: Yes (4) Hypomagnesemia Is this a current diagnosis for this admission?: Yes Plan: Plus the magnesium's (5) Acute renal failure Qualifiers: Acute renal failure type: unspecified Qualified Code(s): N17.9 - Acute kid sally failure, unspecified Is this a current diagnosis for this admission?: Yes Plan: Continues to IV fluid (6) B12 deficiency anemia Qualifiers: Vitamin B12 deficiency anemia type: unspecified B12 deficiency Qualified Code(s): D51.9 - Vitamin B12 deficiency anemia, unspecified Is this a current diagnosis for this admission?: Yes Plan: Continues to B12 per backwinder (7) Kidney mass Is this a current diagnosis for this admission?: Yes Plan: With the oncologist as outpatient urology evaluations (8) Right flank pain Is this a current diagnosis for this admission?: Yes (9) Coronary artery disease Qualifiers: Coronary Disease-Associated Artery/Lesion type: unspecified vessel or lesion type Is this a current diagnosis for this admission?: Yes Plan: Currently all stable we will discontinues the Plavix due to the blood in the urine - Time Time Spent with patient: 25-34 minutes Medications reviewed and adjusted accordingly: Yes Anticipated discharge: Home Within: Other - Plan Summary Plan Summary: Continues to current medications Repeat the Chem-7 and magnesium in the morning Follow-up with the oncologist for the anemia and multiple myeloma work-up versus renal cell carcinoma
[2019-04-03] MEDS: CALCITONIN,SALMON,SYNTHETIC 400 UNIT/2 ML VIAL IM SCH ×2 (11:46→23:14)
[2019-04-03] MEDS ORDERED: OXYCODONE-ACETAMINOPHEN 5-325 MG TABLET PO ONE (12:30)
[2019-04-03] MEDS: ONDANSETRON HCL INJ/PF 4 MG/2 ML SDV IV PRN (13:00)
[2019-04-03] MEDS ORDERED: ONDANSETRON HCL INJ/PF 4 MG/2 ML SDV IV ONE (15:00)
[2019-04-03] MEDS ORDERED: MORPHINE SULFATE 10 MG/ML INJ IV PRN (15:03)
--- NOTE | 2019-04-03 15:04 | EKG REPORT ---
SEVERITY:- ABNORMAL ECG - ACCELERATED JUNCTIONAL ESCAPE RHYTHM NONSPECIFIC INTRAVENTRICULAR CONDUCTION DELAY MINIMAL ST DEPRESSION, LATERAL LEADS OLD ANTERIOR FL : Confirmed by: Abiel Esposito MD 03-Apr-2019 15:02:46
[2019-04-03 16:42] LABS: ANION GAP 7 (5-19); BLOOD UREA NITROGEN 26 mg/dL (7-20); CALCIUM 10.2 mg/dL (8.4-10.2); CARBON DIOXIDE 25 mmol/L (22-30); CHLORIDE 107 mmol/L (98-107); GLUCOSE 118 mg/dL (75-110); POTASSIUM 4.1 mmol/L (3.6-5.0)
[2019-04-03] MEDS: LIDOCAINE 5% (700 MG) TRANSDERMAL ADH..PATCH TP SCH (16:54)
[2019-04-03] MEDS ORDERED: CALCITONIN,SALMON,SYNTHETIC 400 UNIT/2 ML VIAL ONE (21:47)
[2019-04-03] MEDS: ATORVASTATIN CALCIUM 10 MG TABLET PO SCH (23:13)
[2019-04-04] MEDS: ONDANSETRON HCL INJ/PF 4 MG/2 ML SDV IV PRN ×2 (00:18→04:58)
[2019-04-04] MEDS: PANTOPRAZOLE SODIUM 40 MG TABLET.DR PO SCH (05:04)
[2019-04-04] MEDS ORDERED: NORMAL SALINE 1000 ML 1,000 ML IV PRN (06:44)
[2019-04-04] MEDS ORDERED: IMIPENEM/CILASTATIN SODIUM INJ 500 MG VIAL IV ONE (06:45)
[2019-04-04 07:12] LABS: ABSOLUTE LYMPHOCYTES (AUTO) 0.9 10^3/uL (0.5-4.7); ABSOLUTE MONOCYTES (AUTO) 0.4 10^3/uL (0.1-1.4); ABSOLUTE NEUT (AUTO) 6.9 10^3/uL (1.7-8.2); BASOPHILS % (AUTO) 0.4 % (0-2); EOSINOPHILS % (AUTO) 0.4 % (0-6); HEMATOCRIT 24.3 % (36.0-47.0); HEMOGLOBIN 8.2 g/dL (12.0-15.5); LYMPHOCYTES % (AUTO) 11.3 % (13-45); MEAN CORPUSCULAR HEMOGLOBIN 28.6 pg (27.0-33.4); MEAN CORPUSCULAR VOLUME 84 fl (80-97); MONOCYTES % (AUTO) 4.7 % (3-13); PLATELET COUNT 244 10^3/uL (150-450); RED BLOOD COUNT 2.88 10^6/uL (3.72-5.28); RED CELL DISTRIBUTION WIDTH 16.4 % (11.5-14.0); SEGMENTED NEUTROPHILS % (AUTO) 83.2 % (42-78); TOTAL CELLS COUNTED % (AUTO) 100 %; WHITE BLOOD COUNT 8.3 10^3/uL (4.0-10.5)
[2019-04-04 07:31] LABS: ANION GAP 7 (5-19); BLOOD UREA NITROGEN 20 mg/dL (7-20); CARBON DIOXIDE 26 mmol/L (22-30); CHLORIDE 106 mmol/L (98-107); GLUCOSE 124 mg/dL (75-110); POTASSIUM 3.8 mmol/L (3.6-5.0)
[2019-04-04] MEDS ORDERED: PROMETHAZINE HCL INJ 25 MG/1 ML VIAL ONE (08:09)
[2019-04-04] MEDS ORDERED: PROMETHAZINE HCL INJ 25 MG/1 ML VIAL IV ONE (08:30)
[2019-04-04] MEDS: CYANOCOBALAMIN (VITAMIN B-12) 1,000 MCG TABLET PO SCH (09:09)
[2019-04-04] MEDS: DOCUSATE SODIUM 100 MG CAPSULE PO SCH (09:09)
[2019-04-04] MEDS: ENOXAPARIN SODIUM INJ 30 MG/0.3 ML DISP.SYRIN SUBCUT SCH (09:09)
[2019-04-04] MEDS: LIDOCAINE 5% (700 MG) TRANSDERMAL ADH..PATCH TP SCH (09:10)
[2019-04-04] MEDS ORDERED: PROMETHAZINE HCL INJ 25 MG/1 ML VIAL IV PRN (09:28)
--- NOTE | 2019-04-04 09:50 | PDOC PROGRESS REPORT ---
Subjective Progress Note for:: 04/04/19 Subjective:: Patient remains nauseated. She was able to eat Grits for breakfast, but then vomited shortly afterward. Phenergan seems to be helping better than zofran. ROS: She denies bone or abdominal pain. No diarrhea. Reason For Visit: RENAL FAILURE, ANEMIA, RENAL CELL CA, HYPERCAPNIA Physical Exam Vital Signs: Temp Pulse Resp BP Pulse Ox 98.2 F 56 L 15 154/87 H 100 04/04/19 07:45 04/04/19 07:45 04/04/19 07:45 04/04/19 07:45 04/04/19 07:45 Intake & Output 04/03/19 04/04/19 04/05/19 06:59 06:59 06:59 Intake Total 100 820 Output Total 800 600 Balance -700 220 Weight 96.9 kg 98.5 kg General appearance: PRESENT: well-developed, well-nourished Head exam: PRESENT: normocephalic Respiratory exam: PRESENT: clear to auscultation loki, unlabored Cardiovascular exam: PRESENT: RRR Neurological exam: PRESENT: awake Psychiatric exam: PRESENT: appropriate affect Skin exam: PRESENT: normal color Results Laboratory Results: 04/04/19 06:20 04/04/19 06:20 04/03/19 04/03/19 04/04/19 15:35 15:35 06:20 WBC 8.3 RBC 2.88 L Hgb 8.2 L Hct 24.3 L MCV 84 MCH 28.6 MCHC 34.0 RDW 16.4 H Plt Count 244 Seg Neutrophils % 83.2 H Sodium 138.5 Potassium 4.1 Chloride 107 Carbon Dioxide 25 Anion Gap 7 BUN 26 H Creatinine 1.56 H Est GFR ( Amer) 39 L Glucose 118 H Calcium 10.2 Magnesium 1.4 L 04/04/19 06:20 WBC RBC Hgb Hct MCV MCH MCHC RDW Plt Count Seg Neutrophils % Sodium 138.5 Potassium 3.8 Chloride 106 Carbon Dioxide 26 Anion Gap 7 BUN 20 Creatinine 1.45 H Est GFR ( Amer) 42 L Glucose 124 H Calcium 10.0 Magnesium 1.5 L 04/02/19 04/02/19 08:52 08:52 Creatine Kinase 64 CK-MB (CK-2) 0.48 Troponin I 0.017 Impressions: Abdomen/Pelvis CT 04/02/19 00:00 IMPRESSION: 1. Diffuse bone lytic lesions are suggestive of metastatic disease or myeloma. 2. Ill-defined mass in the right kidney. Renal cell carcinoma is in the differential. Assessment & Plan - Diagnosis (1) B12 deficiency anemia Qualifiers: Vitamin B12 deficiency anemia type: unspecified B12 deficiency Qualified Code(s): D51.9 - Vitamin B12 deficiency anemia, unspecified Is this a current diagnosis for this admission?: Yes Plan: HGB stable. Receiving oral B12 supplements. Will repeat level in a few weeks. Consider IM if HGB drops. (2) Kidney mass Is this a current diagnosis for this admission?: Yes Plan: I spoke with patient, her daughter, and her sister today. I have explained that she will need to see a urologist for this,but we have no urologist here at [facility]. I am hoping that she will be able to see them as outpatient. (3) Hypercalcemia Is this a current diagnosis for this admission?: Yes Plan: Much improved with fluids and calcitonin. I will check skeletal survey today for possible mysloma. Await SPEP and UPEP results. Consider bone marrow biopsy in the future. (4) Right flank pain Is this a current diagnosis for this admission?: Yes
--- NOTE | 2019-04-04 10:44 | PDOC PROGRESS REPORT ---
Subjective Progress Note for:: 04/04/19 Subjective:: Patient is currently doing much better after the Phenergan for the nausea is improving Patient's pain is under control Patient has some cardiac arrhythmias as per discussed with the Dr. Garibay stop the beta-jodie currently all stable Patient's calcium is also improving and magnesium is also improving Patient is denied any chest pain to than any shortness of the breath Reason For Visit: RENAL FAILURE, ANEMIA, RENAL CELL CA, HYPERCAPNIA Physical Exam Vital Signs: Temp Pulse Resp BP Pulse Ox 98.2 F 56 L 15 154/87 H 100 04/04/19 07:45 04/04/19 07:45 04/04/19 07:45 04/04/19 07:45 04/04/19 07:45 Intake & Output 04/03/19 04/04/19 04/05/19 06:59 06:59 06:59 Intake Total 100 820 Output Total 800 600 Balance -700 220 Weight 96.9 kg 98.5 kg General appearance: PRESENT: no acute distress, well-developed, well-nourished Head exam: PRESENT: atraumatic, normocephalic Eye exam: PRESENT: conjunctiva pink, EOMI, PERRLA. ABSENT: scleral icterus Ear exam: PRESENT: normal external ear exam Mouth exam: PRESENT: moist, tongue midline Neck exam: PRESENT: full ROM. ABSENT: carotid bruit, JVD, lymphadenopathy, thyromegaly Respiratory exam: PRESENT: clear to auscultation loki Cardiovascular exam: PRESENT: RRR. ABSENT: diastolic murmur, rubs, systolic murmur Pulses: PRESENT: normal dorsalis pedis pul, +2 pedal pulses bilateral Vascular exam: PRESENT: normal capillary refill GI/Abdominal exam: PRESENT: normal bowel sounds, soft. ABSENT: distended, g uarding, mass, organolmegaly, rebound, tenderness Rectal exam: PRESENT: deferred Musculoskeletal exam: PRESENT: ambulatory Neurological exam: PRESENT: alert, awake, oriented to person, oriented to place, oriented to time, oriented to situation, CN II-XII grossly intact. ABSENT: motor sensory deficit Psychiatric exam: PRESENT: appropriate affect, normal mood. ABSENT: homicidal ideation, suicidal ideation Skin exam: PRESENT: dry, intact, warm. ABSENT: cyanosis, rash Results Laboratory Results: 04/04/19 06:20 04/04/19 06:20 04/03/19 04/03/19 04/04/19 15:35 15:35 06:20 WBC 8.3 RBC 2.88 L Hgb 8.2 L Hct 24.3 L MCV 84 MCH 28.6 MCHC 34.0 RDW 16.4 H Plt Count 244 Seg Neutrophils % 83.2 H Sodium 138.5 Potassium 4.1 Chloride 107 Carbon Dioxide 25 Anion Gap 7 BUN 26 H Creatinine 1.56 H Est GFR ( Amer) 39 L Glucose 118 H Calcium 10.2 Magnesium 1.4 L 04/04/19 06:20 WBC RBC Hgb Hct MCV MCH MCHC RDW Plt Count Seg Neutrophils % Sodium 138.5 Potassium 3.8 Chloride 106 Carbon Dioxide 26 Anion Gap 7 BUN 20 Creatinine 1.45 H Est GFR ( Amer) 42 L Glucose 124 H Calcium 10.0 Magnesium 1.5 L 04/02/19 04/02/19 08:52 08:52 Creatine Kinase 64 CK-MB (CK-2) 0.48 Troponin I 0.017 Impressions: Abdomen/Pelvis CT 04/02/19 00:00 IMPRESSION: 1. Diffuse bone lytic lesions are suggestive of metastatic disease or myeloma. 2. Ill-defined mass in the right kidney. Renal cell carcinoma is in the differential. Assessment & Plan - Diagnosis (1) Hypercalcemia Is this a current diagnosis for this admission?: Yes Plan: Currently all resolved (2) Back pain Qualifiers: Back pain laterality: unspecified Is this a current diagnosis for this admission?: Yes Plan: Currently pain medication (3) Hypertension Qualifiers: Hypertension type: essential hypertension Qualified Code(s): I10 - Essential (primary) hypertension Is this a current diagnosis for this admission?: Yes Plan: [place] all stable (4) Hypomagnesemia Is this a current diagnosis for this admission?: Yes Plan: Used to replace the magnesium (5) Acute renal failure Qualifiers: Acute renal failure type: unspecified Qualified Code(s): N17.9 - Acute kidney failure, unspecified Is this a current diagnosis for this admission?: Yes Plan: Continues to IV fluid (6) B12 deficiency anemia Qualifiers: Vitamin B12 deficiency anemia type: unspecified B12 deficiency Qualified Code(s): D51.9 - Vitamin B12 deficiency anemia, unspecified Is this a current diagnosis for this admission?: Yes Plan: Continues to B12 per link fabric machine operator (7) Kidney mass Is this a current diagnosis for this admission?: Yes Plan: With the oncologist as outpatient urology evaluations (8) Right flank pain Is this a current diagnosis for this admission?: Yes (9) Coronary artery disease Qualifiers: Coronary Disease-Associated Artery/Lesion type: unspecified vessel or lesion type Is this a current diagnosis for this admission?: Yes Plan: With the EKG in the morning currently denied any symptoms - Time Time Spent with patient: 15-24 minutes Medications reviewed and adjusted accordingly: Yes Anticipated discharge: Home Within: Other - Plan Summary Plan Summary: Discussed with the patient and the sister and the bedside regarding the patient's current condition and all plan
[2019-04-04] MEDS: MAGNESIUM OXIDE 400 MG TABLET PO SCH ×2 (10:47→17:41)
[2019-04-04] MEDS: ATORVASTATIN CALCIUM 10 MG TABLET PO SCH (22:10)
[2019-04-04] MEDS: OXYCODONE-ACETAMINOPHEN 5-325 MG TABLET PO PRN (22:10)
[2019-04-05 06:10] LABS: ABSOLUTE EOSINOPHILS # (AUTO) 0.2 10^3/uL (0.0-0.6); ABSOLUTE LYMPHOCYTES (AUTO) 1.4 10^3/uL (0.5-4.7); ABSOLUTE MONOCYTES (AUTO) 0.6 10^3/uL (0.1-1.4); ABSOLUTE NEUT (AUTO) 5.6 10^3/uL (1.7-8.2); BASOPHILS % (AUTO) 0.5 % (0-2); HEMATOCRIT 24.9 % (36.0-47.0); HEMOGLOBIN 8.5 g/dL (12.0-15.5); LYMPHOCYTES % (AUTO) 18.3 % (13-45); MEAN CORPUSCULAR HEMOGLOBIN 28.8 pg (27.0-33.4); MEAN CORPUSCULAR HGB CONC 34.2 g/dL (32.0-36.0); MEAN CORPUSCULAR VOLUME 84 fl (80-97); MONOCYTES % (AUTO) 7.5 % (3-13); PLATELET COUNT 260 10^3/uL (150-450); RED BLOOD COUNT 2.95 10^6/uL (3.72-5.28); RED CELL DISTRIBUTION WIDTH 16.3 % (11.5-14.0); SEGMENTED NEUTROPHILS % (AUTO) 70.7 % (42-78); TOTAL CELLS COUNTED % (AUTO) 100 %; WHITE BLOOD COUNT 7.9 10^3/uL (4.0-10.5)
[2019-04-05] MEDS: PANTOPRAZOLE SODIUM 40 MG TABLET.DR PO SCH (06:12)
[2019-04-05 06:28] LABS: ANION GAP 7 (5-19); BLOOD UREA NITROGEN 17 mg/dL (7-20); CALCIUM 10.3 mg/dL (8.4-10.2); CARBON DIOXIDE 28 mmol/L (22-30); CHLORIDE 106 mmol/L (98-107); GLUCOSE 100 mg/dL (75-110); POTASSIUM 3.6 mmol/L (3.6-5.0)
[2019-04-05] MEDS: LIDOCAINE 5% (700 MG) TRANSDERMAL ADH..PATCH TP SCH (09:05)
[2019-04-05] MEDS: MAGNESIUM OXIDE 400 MG TABLET PO SCH ×2 (09:06→17:08)
[2019-04-05] MEDS: CYANOCOBALAMIN (VITAMIN B-12) 1,000 MCG TABLET PO SCH (09:06)
[2019-04-05] MEDS: ENOXAPARIN SODIUM INJ 30 MG/0.3 ML DISP.SYRIN SUBCUT SCH (09:06)
[2019-04-05] MEDS: DOCUSATE SODIUM 100 MG CAPSULE PO SCH (09:07)
[2019-04-05] MEDS ORDERED: ONDANSETRON HCL INJ/PF 4 MG/2 ML SDV IV PRN (12:30)
[2019-04-05 14:37] LABS: A/G RATIO. 0.5 (0.7-1.7); ALPHA-1-GLOBULIN 0.3 g/dL (0.0-0.4); BETA GLOBULIN 4.2 g/dL (0.7-1.3); GAMMA GLOBULINS 0.3 g/dL (0.4-1.8); IMMUNOGLOBULIN A 100 mg/dL (64-422); IMMUNOGLOBULIN G 4965 mg/dL (700-1600); MONOCLONAL-SPIKE 3.5 g/dL (Not Observ)
[2019-04-05 15:20] LABS: IMMUNOGLOBULIN M 7 mg/dL (26-217); PROTEIN TOTAL SERUM 9.3 g/dL (6.0-8.5)
[2019-04-05] MEDS: OXYCODONE-ACETAMINOPHEN 5-325 MG TABLET PO PRN ×2 (17:08→23:35)
--- NOTE | 2019-04-05 17:25 | RADIOLOGY REPORT (SQ) ---
EXAM DESCRIPTION: BONE SURVEY COMPLETE COMPLETED DATE/TIME: 04/05/2019 4:57 pm REASON FOR STUDY: lytic lesions, evaluate for myeloma COMPARISON: None. TECHNIQUE: Images of the axial and proximal appendicular skeleton are obtained, along with lateral s kull and frontal chest films. LIMITATIONS: None. FINDINGS: AP CHEST: No bony findings. Lungs are clear. LATERAL SKULL: No worrisome bone lesions. AP BOTH HUMERI: There is a lytic lesion in the mid left humerus consistent with metastatic disease. TWO-VIEW LUMBAR SPINE: Lytic changes in the superior aspect of L5. Based on recent CT this most like ly represents Schmorl's node. TWO-VIEW THORACIC SPINE: There are lucencies within numerous ribs demonstrated best on the lateral vi ew of the thoracic spine consistent with metastatic disease. There are scattered lucencies within th e dorsal vertebral bodies suspicious for metastatic disease as well. AP PELVIS: There are lytic lesions in the pelvis consistent with metastatic disease. AP BOTH FEMURS: There are lytic lesions in both proximal femurs consistent with metastatic disease. OTHER: No other significant finding. IMPRESSION: Widespread bony metastatic disease. TECHNICAL DOCUMENTATION: JOB ID: [id number]- All Rights Reserved Reading location - IP/workstation name: [email or web address]
--- NOTE | 2019-04-05 20:26 | PDOC PROGRESS REPORT ---
Subjective Progress Note for:: 04/05/19 Subjective:: Patient was seen by the bedside, I saw her in the office last week when she came for regular follow-up at the time she complained of back pain, I typically do routine blood work , the blood test came back showing hypercalcemia, anemia, acute kidney injury, I suspected multiple myeloma, I called her at home on Thursday for her to go to the emergency room because I was not on-call this weekend anyway she came to the emergency room on Thursday she was admitted evaluated. I reviewed the record she has diffuse lytic lesion on skeletal survey, M spike with 3.5 g the immunofixation test show mainly IgG so clearly she has multiple myeloma, she was already seen by Dr. Sterling oncology. CT scan of the abdomen and pelvis that was done also showed an ovoid mass in the right kidney at the midpole poorly differentiated, probably different from the multiple myeloma Reason For Visit: RENAL FAILURE, ANEMIA, RENAL CELL CA,HYPERCALCEMIA Physical Exam Vital Signs: Temp Pulse Resp BP Pulse Ox 98.0 F 55 L 16 185/67 H 95 04/05/19 12:07 04/05/19 13:59 04/05/19 12:07 04/05/19 12:07 04/05/19 12:07 Intake & Output 04/04/19 04/05/19 04/06/19 06:59 06:59 06:59 Intake Total 820 240 508 Output Total 600 2150 775 Balance 220 -1910 -267 Weight 98.5 kg 99 kg General appearance: PRESENT: no acute distress Eye exam: PRESENT: PERRLA Respiratory exam: PRESENT: clear to auscultation loki Cardiovascular exam: PRESENT: +S1, +S2 GI/Abdominal exam: PRESENT: soft Neurological exam: PRESENT: alert Results Laboratory Results: 04/05/19 05:34 04/05/19 05:34 04/02/19 04/05/19 04/05/19 08:52 05:34 05:34 WBC 7.9 RBC 2.95 L Hgb 8.5 L Hct 24.9 L MCV 84 MCH 28.8 MCHC 34.2 RDW 16.3 H Plt Count 260 Seg Neutrophils % 70.7 Sodium 140.5 Potassium 3.6 Chloride 106 Carbon Dioxide 28 Anion Gap 7 BUN 17 Creatinine 1.39 H Est GFR ( Amer) 44 L Glucose 100 Calcium 10.3 H Magnesium 1.5 L Total Protein 9.3 H 04/02/19 04/02/19 08:52 08:52 Creatine Kinase 64 CK-MB (CK-2) 0.48 Troponin I 0.017 Impressions: Abdomen/Pelvis CT 04/02/19 00:00 IMPRESSION: 1. Diffuse bone lytic lesions are suggestive of metastatic disease or myeloma. 2. Ill-defined mass in the right kidney. Renal cell carcinoma is in the differential. Skeletal Survey 04/05/19 07:30 IMPRESSION: Widespread bony metastatic disease. Assessment & Plan - Diagnosis (1) Multiple myeloma Qualifiers: Multiple myeloma remission status: not in remission Qualified Code(s): C90 .00 - Multiple myeloma not having achieved remission Is this a current diagnosis for this admission?: Yes Plan: She was seen by oncology, she would need a bone marrow biopsy (2) Hypercalcemia of malignancy Is this a current diagnosis for this admission?: Yes Plan: The hypercalcemia is improved (3) Acute kidney injury Is this a current diagnosis for this admission?: Yes (4) Right kidney mass Is this a current diagnosis for this admission?: Yes
[2019-04-05] MEDS: ATORVASTATIN CALCIUM 10 MG TABLET PO SCH (21:56)
[2019-04-05] MEDS: PHARMACY COMMUNICATION ORDER MC SCH (22:24)
--- NOTE | 2019-04-05 23:11 | EKG REPORT ---
SEVERITY:- ABNORMAL ECG - SINUS RHYTHM VENTRICULAR PREMATURE COMPLEX LEFT BUNDLE BRANCH BLOCK : Confirmed by: Jose Cruz Martini 05-Apr-2019 23:10:25
[2019-04-06] MEDS: PANTOPRAZOLE SODIUM 40 MG TABLET.DR PO SCH (06:11)
--- NOTE | 2019-04-06 09:16 | PDOC PROGRESS REPORT ---
Subjective Progress Note for:: 04/06/19 Subjective:: Today had a long discussion with the patient and family, we discussed the likelihood that this is multiple myeloma, but in addition she probably has a primary kidney cancer as well. In terms of the myeloma we need to confirm this with bone marrow biopsy. I have planned for radiology to do a CT-guided biopsy, discussed with my office who will be bringing the bone marrow biopsy kit, this should happen at 11 AM. Lovenox on hold for today, coagulation studies ordered for the biopsy. Reason For Visit: RENAL FAILURE, ANEMIA, RENAL CELL CA,HYPERCALCEMIA Physical Exam Vital Signs: Temp Pulse Resp BP Pulse Ox 98.2 F 55 L 16 160/63 H 97 04/06/19 03:23 04/06/19 06:45 04/06/19 03:23 04/06/19 03:23 04/06/19 03:23 Intake & Output 04/05/19 04/06/19 04/07/19 06:59 06:59 06:59 Intake Total 240 508 Output Total 2150 1375 Balance -1910 -867 Weight 99 kg 98.5 kg General appearance: PRESENT: no acute distress, well-developed, well-nourished Head exam: PRESENT: atraumatic, normocephalic Eye exam: PRESENT: conjunctiva pink, EOMI, PERRLA. ABSENT: scleral icterus Ear exam: PRESENT: normal external ear exam Mouth exam: PRESENT: moist, tongue midline Neck exam: ABSENT: carotid bruit, JVD, lymphadenopathy, thyromegaly Respiratory exam: PRESENT: clear to auscultation loki. ABSENT: rales, rhonchi, wheezes Cardiovascular exam: PRESENT: RRR. ABSENT: diastolic murmur, rubs, systolic murmur Pulses: PRESENT: normal dorsalis pedis pul Vascular exam: PRESENT: normal capillary refill GI/Abdominal exam: PRESENT: normal bowel sounds, soft. ABSENT: distended, g uarding, mass, organolmegaly, rebound, tenderness Rectal exam: PRESENT: deferred Extremities exam: PRESENT: full ROM. ABSENT: calf tenderness, clubbing, pedal edema Neurological exam: PRESENT: alert, awake, oriented to person, oriented to place, oriented to time, oriented to situation, CN II-XII grossly intact. ABSENT: mo tor sensory deficit Psychiatric exam: PRESENT: appropriate affect, normal mood. ABSENT: homicidal ideation, suicidal ideation Skin exam: PRESENT: dry, intact, warm. ABSENT: cyanosis, rash Results Laboratory Results: 04/05/19 05:34 04/05/19 05:34 04/02/19 08:52 Total Protein 9.3 H 04/02/19 04/02/19 08:52 08:52 Creatine Kinase 64 CK-MB (CK-2) 0.48 Troponin I 0.017 Impressions: Abdomen/Pelvis CT 04/02/19 00:00 IMPRESSION: 1. Diffuse bone lytic lesions are suggestive of metastatic disease or myeloma. 2. Ill-defined mass in the right kidney. Renal cell carcinoma is in the differential. Skeletal Survey 04/05/19 07:30 IMPRESSION: Widespread bony metastatic disease. Status: Image reviewed by me Assessment & Plan - Diagnosis (1) Multiple myeloma Qualifiers: Multiple myeloma remission status: not in remission Qualified Code(s): C90.00 - Multiple myeloma not having achieved remission Is this a current diagnosis for this admission?: Yes Plan: Multiple myeloma, bone marrow biopsy pending today, we will need to initiate treatment as an outpatient. (2) Right kidney mass Is this a current diagnosis for this admission?: Yes Plan: Likely to be a primary renal cancer, at this point given the size I think it could be safely monitored given the fact that she has another cancer with the myeloma, and this is more pressing to treat.
[2019-04-06] MEDS: MAGNESIUM OXIDE 400 MG TABLET PO SCH ×2 (09:29→17:16)
[2019-04-06] MEDS: DOCUSATE SODIUM 100 MG CAPSULE PO SCH (09:29)
[2019-04-06] MEDS: CYANOCOBALAMIN (VITAMIN B-12) 1,000 MCG TABLET PO SCH (09:30)
[2019-04-06] MEDS: LIDOCAINE 5% (700 MG) TRANSDERMAL ADH..PATCH TP SCH (09:30)
[2019-04-06 10:48] LABS: INTERNATIONAL RATION (INR) 1.15; PARTIAL THROMBOPLASTIN TIME 28.6 SEC (23.5-35.8); PROTHROMBIN TIME 14.8 SEC (11.4-15.4)
[2019-04-06] MEDS ORDERED: MIDAZOLAM 2 MG/2 ML INJ ONE (11:25)
[2019-04-06] MEDS ORDERED: FENTANYL CITRATE INJ/PF 100 MCG/2 ML AMPUL ONE (11:26)
--- NOTE | 2019-04-06 12:29 | RADIOLOGY REPORT (SQ) ---
EXAM DESCRIPTION: CT BIOPSY BONE MARROW, NEEDLE COMPLETED DATE/TIME: 04/06/2019 12:05 pm REASON FOR STUDY: multiple myeloma COMPARISON: CT abdomen dated 04/02/2019 TECHNIQUE: CT guided biopsy of the left iliac crest bone marrow performed with conscious sedation. CT Fluoroscopy Time: 12.[address] scanners at this facility use dose modulation, iterative reconstruction, and/or weight based d osing when appropriate to reduce radiation dose to as low as reasonably achievable (ALARA). [facility]: Dose Right [facility]: CareDose [facility]: Dose Right [facility]: Teradose 4D [facility]: Smart [email or web address].com RADIATION DOSE: CT Rad equipment meets quality standard of care and radiation dose reduction techniq ues were employed. CTDIvol: 4.0 - 26.7 mGy. DLP: 526 mGy-cm.mGy. FINDINGS: After obtaining informed consent and explaining the risks and benefits of conscious sedati on,the patient agreed to the procedure. Prior to the procedure, a time out was performed to verify th e patient's identity and planned procedure. IV conscious sedation was administered and physician direction by the registered nurse using 2.0 mill igrams of Versed and 50 micrograms of fentanyl. Physiologic monitoring was provided before, during, a nd after sedation. The total sedation time was 30 minutes. Documentation face to face time, the performing proceduralist, spent monitoring the patient: [address] scanning was performed to localize the percutaneous site for the biopsy approach. After sterile skin prep and local lidocaine for skin and deep tissue anesthesia, a coaxial biopsy nee dle was used to obtain a bone marrow aspirate, and a bone marrow core of tissue. The biopsy tissue wa s received by Dr. Craven's nurse to be sent out for evaluation. There were no immediate complication s. Pathology is pending at the time of dictation. IMPRESSION: CT GUIDED ASPIRATE AND CORE BIOPSY OF THE LEFT POSTERIOR ILIAC CREST BONE MARROW PERFORM ED WITHOUT IMMEDIATE COMPLICATION. PATHOLOGY PENDING. IV CONSCIOUS SEDATION WITHOUT COMPLICATION. COMMENT: Quality ID [id number]: Final reports for procedures using fluoroscopy that document radiation exp osure indices, or exposure time and number of fluorographic images (if radiation exposure indices are not available) Patient medication list reviewed: Yes- Quality ID# [id number]:Eligible professional attests to documenting i n the medical record they obtained, updated, or reviewed the patient's current medications.. TECHNICAL DOCUMENTATION: JOB ID: [id number] Quality ID# [id number]: Final reports with documentation of one or more dose reduction techniques (e.g., Aut omated exposure control, adjustment of the mA and/or kV according to patient size, use of iterative r econstruction technique) 2010 [employer]- All Rights Reserved Reading location - IP/workstation name: [email or web address]
[2019-04-06 14:37] LABS: ALBUMIN UR 6.4 % (.); ALPHA-1-GLOBULIN URINE 0.4 % (.); ALPHA-2-GLOBULIN URINE 3.7 % (.); GAMMA GLOBULIN URINE 0.5 % (.); M-SPIKE % UR 85.8 % (Not Observ); PROTEIN TOTAL URINE 157.3 mg/dL (Not Estab.)
--- NOTE | 2019-04-06 14:54 | PDOC PROGRESS REPORT ---
Subjective Progress Note for:: 04/06/19 Subjective:: Patient seen by the bedside, she had bone marrow biopsy done today, she was seen by oncology, she has multiple myeloma the plan is to initiate therapy outpatient on discharge, she is very weak in bed hopefully discharge in the next 48 hours. Reason For Visit: RENAL FAILURE, ANEMIA, RENAL CELL CA,HYPERCALCEMIA Physical Exam Vital Signs: Temp Pulse Resp BP Pulse Ox 97.7 F 61 16 145/65 H 99 04/06/19 08:25 04/06/19 13:56 04/06/19 08:25 04/06/19 08:25 04/06/19 08:25 Intake & Output 04/05/19 04/06/19 04/07/19 06:59 06:59 06:59 Intake Total 240 508 Output Total 2150 1375 Balance -1910 -867 Weight 99 kg 98.5 kg General appearance: PRESENT: no acute distress Eye exam: PRESENT: PERRLA Respiratory exam: PRESENT: clear to auscultation loki Cardiovascular exam: PRESENT: +S1, +S2 GI/Abdominal exam: PRESENT: soft Neurological exam: PRESENT: alert, CN II-XII grossly intact Results Laboratory Results: 04/05/19 05:34 04/05/19 05:34 04/02/19 08:52 Total Protein 9.3 H 04/02/19 04/02/19 08:52 08:52 Creatine Kinase 64 CK-MB (CK-2) 0.48 Troponin I 0.017 Impressions: Abdomen/Pelvis CT 04/02/19 00:00 IMPRESSION: 1. Diffuse bone lytic lesions are suggestive of metastatic disease or myeloma. 2. Ill-defined mass in the right kidney. Renal cell carcinoma is in the differential. Skeletal Survey 04/05/19 07:30 IMPRESSION: Widespread bony metastatic disease. Bone Marrow Biopsy w/ CT 04/06/19 00:00 IMPRESSION: CT GUIDED ASPIRATE AND CORE BIOPSY OF THE LEFT POSTERIOR ILIAC CREST BONE MARROW PERFORMED WITHOUT IMMEDIATE COMPLICATION. PATHOLOGY PENDING. IV CONSCIOUS SEDATION WITHOUT COMPLICATION. Assessment & Plan - Diagnosis (1) Multiple myeloma Qualifiers: Multiple myeloma remission status: not in remission Qualified Code(s): C90.00 - Multiple myeloma not having achieved remission Is this a current diagnosis for this admission?: Yes Plan: She was seen by oncology (2) Hypercalcemia of malignancy Is this a current diagnosis for this admission?: Yes Plan: Resolved (3) Acute kidney injury Is this a current diagnosis for this admission?: Yes Plan: Improved (4) Right kidney mass Is this a current diagnosis for this admission?: Yes
[2019-04-06] MEDS: OXYCODONE-ACETAMINOPHEN 5-325 MG TABLET PO PRN ×2 (17:17→21:49)
[2019-04-06] MEDS: ATORVASTATIN CALCIUM 10 MG TABLET PO SCH (21:46)
[2019-04-06] MEDS: PHARMACY COMMUNICATION ORDER MC SCH (22:00)
[2019-04-07] MEDS: PANTOPRAZOLE SODIUM 40 MG TABLET.DR PO SCH (05:24)
[2019-04-07] MEDS: OXYCODONE-ACETAMINOPHEN 5-325 MG TABLET PO PRN ×3 (08:35→21:48)
[2019-04-07] MEDS: DOCUSATE SODIUM 100 MG CAPSULE PO SCH (09:44)
[2019-04-07] MEDS: CYANOCOBALAMIN (VITAMIN B-12) 1,000 MCG TABLET PO SCH (09:44)
[2019-04-07] MEDS: MAGNESIUM OXIDE 400 MG TABLET PO SCH ×2 (09:44→17:05)
[2019-04-07] MEDS: ENOXAPARIN SODIUM INJ 30 MG/0.3 ML DISP.SYRIN SUBCUT SCH (09:44)
[2019-04-07] MEDS: LIDOCAINE 5% (700 MG) TRANSDERMAL ADH..PATCH TP SCH (09:44)
--- NOTE | 2019-04-07 10:22 | PDOC PROGRESS REPORT ---
Subjective Progress Note for:: 04/07/19 Subjective:: Patient had bone marrow biopsy yesterday tolerated well, pain is currently being managed, she is up in a chair today Reason For Visit: RENAL FAILURE, ANEMIA, RENAL CELL CA,HYPERCALCEMIA Physical Exam Vital Signs: Temp Pulse Resp BP Pulse Ox 98.9 F 57 L 17 141/45 H 96 04/07/19 00:00 04/07/19 06:48 04/07/19 00:00 04/07/19 00:00 04/07/19 00:00 Intake & Output 04/06/19 04/07/19 04/08/19 06:59 06:59 06:59 Intake Total 508 870 Output Total 1375 1250 Balance -867 -380 Weight 98.5 kg 100 kg General appearance: PRESENT: no acute distress, well-developed, well-nourished Head exam: PRESENT: atraumatic, normocephalic Eye exam: PRESENT: conjunctiva pink, EOMI, PERRLA. ABSENT: scleral icterus Ear exam: PRESENT: normal external ear exam Mouth exam: PRESENT: moist, tongue midline Neck exam: ABSENT: carotid bruit, JVD, lymphadenopathy, thyromegaly Respiratory exam: PRESENT: clear to auscultation loki. ABSENT: rales, rhonchi, wheezes Cardiovascular exam: PRESENT: RRR. ABSENT: diastolic murmur, rubs, systolic murmur Pulses: PRESENT: normal dorsalis pedis pul Vascular exam: PRESENT: normal capillary refill GI/Abdominal exam: PRESENT: normal bowel sounds, soft. ABSENT: distended, guarding, mass, organolmegaly, rebound, tenderness Rectal exam: PRESENT: deferred Extremities exam: PRESENT: full ROM. ABSENT: calf tenderness, clubbing, pedal edema Neurological exam: PRESENT: alert, awake, oriented to person, oriented to place, oriented to time, oriented to situation, CN II-XII grossly intact. ABSENT: motor sensory deficit Psychiatric exam: PRESENT: appropriate affect, normal mood. ABSENT: homicidal ideation, suicidal ideation Skin exam: PRESENT: dry, intact, warm. ABSENT: cyanosis, rash Results Laboratory Results: 04/05/19 05:34 04/05/19 05:34 04/02/19 04/02/19 08:52 08:52 Creatine Kinase 64 CK-MB (CK-2) 0.48 Troponin I 0.017 Impressions: Abdomen/Pelvis CT 04/02/19 00:00 IMPRESSION: 1. Diffuse bone lytic lesions are suggestive of metastatic disease or myeloma. 2. Ill-defined mass in the right kidney. Renal cell carcinoma is in the differential. Skeletal Survey 04/05/19 07:30 IMPRESSION: Widespread bony metastatic disease. Bone Marrow Biopsy w/ CT 04/06/19 00:00 IMPRESSION: CT GUIDED ASPIRATE AND CORE BIOPSY OF THE LEFT POSTERIOR ILIAC CREST BONE MARROW PERFORMED WITHOUT IMMEDIATE COMPLICATION. PATHOLOGY PENDING. IV CONSCIOUS SEDATION WITHOUT COMPLICATION. Assessment & Plan - Diagnosis (1) Multiple myeloma Qualifiers: Multiple myeloma remission status: not in remission Qualified Code(s): C90.00 - Multiple myeloma not having achieved remission Is this a current diagnosis for this admission?: Yes Plan: Status post bone marrow biopsy, await results, now that we have had bone marrow complete I will place patient on oral dexamethasone at 20 mg p.o. weekly. (2) Right kidney mass Is this a current diagnosis for this admission?: Yes Plan: Further work-up as an outpatient
[2019-04-07] MEDS ORDERED: DEXAMETHASONE 4 MG TABLET PO ONE (11:00)
--- NOTE | 2019-04-07 13:53 | PDOC PROGRESS REPORT ---
Subjective Progress Note for:: 04/07/19 Subjective:: Patient seen by the bedside, she probably could be discharged home but because of the inclement weather she may have to stay 1 or 2 more days, she was seen earlier this morning by oncology, started on dexamethasone., Start back on losartan for blood pressure, she is out of bed to chair today Reason For Visit: RENAL FAILURE, ANEMIA, RENAL CELL CA,HYPERCALCEMIA Physical Exam Vital Signs: Temp Pulse Resp BP Pulse Ox 97.8 F 57 L 16 151/54 H 96 04/07/19 12:00 04/07/19 06:48 04/07/19 12:00 04/07/19 12:00 04/07/19 00:00 Intake & Output 04/06/19 04/07/19 04/08/19 06:59 06:59 06:59 Intake Total 508 870 480 Output Total 1375 1250 Balance -867 -380 480 Weight 98.5 kg 100 kg General appearance: PRESENT: no acute distress Eye exam: PRESENT: PERRLA Respiratory exam: PRESENT: clear to auscultation loki Cardiovascular exam: PRESENT: +S1, +S2 GI/Abdominal exam: PRESENT: soft Neurological exam: PRESENT: alert Results Laboratory Results: 04/05/19 05:34 04/05/19 05:34 04/02/19 04/02/19 08:52 08:52 Creatine Kinase 64 CK-MB (CK-2) 0.48 Troponin I 0.017 Impressions: Abdomen/Pelvis CT 04/02/19 00:00 IMPRESSION: 1. Diffuse bone lytic lesions are suggestive of metastatic disease or myeloma. 2. Ill-defined mass in the right kidney. Renal cell carcinoma is in the differential. Skeletal Survey 04/05/19 07:30 IMPRESSION: Widespread bony metastatic disease. Bone Marrow Biopsy w/ CT 04/06/19 00:00 IMPRESSION: CT GUIDED ASPIRATE AND CORE BIOPSY OF THE LEFT POSTERIOR ILIAC CREST BONE MARROW PERFORMED WITHOUT IMMEDIATE COMPLICATION. PATHOLOGY PENDING. IV CONSCIOUS SEDATION WITHOUT COMPLICATION. Assessment & Plan - Diagnosis (1) Multiple myeloma Qualifiers: Multiple myeloma remission status: not in remission Qualified Code(s): C90.00 - Multiple myeloma not having achieved remission Is this a current diagnosis for this admission?: Yes Plan: Patient started on dexamethasone by oncology (2) Hypercalcemia of malignancy Is this a current diagnosis for this admission?: Yes (3) Acute kidney injury Is this a current diagnosis for this admission?: Yes Plan: Follow lab work (4) Right kidney mass Is this a current diagnosis for this admission?: Yes (5) Essential (primary) hypertension Is this a current diagnosis for this admission?: Yes Plan: Start back on losartan HCTZ
[2019-04-07] MEDS ORDERED: (PENDING PHARMACY ID) (Losartan/Hydrochlorothiazide [Losartan-Hctz 100-25 Mg Tab] 1 EACH) PO SCH (14:00)
[2019-04-07 15:00] LABS: ABSOLUTE EOSINOPHILS # (AUTO) 0.1 10^3/uL (0.0-0.6); ABSOLUTE LYMPHOCYTES (AUTO) 1.1 10^3/uL (0.5-4.7); ABSOLUTE MONOCYTES (AUTO) 0.2 10^3/uL (0.1-1.4); ABSOLUTE NEUT (AUTO) 7.4 10^3/uL (1.7-8.2); BASOPHILS % (AUTO) 0.3 % (0-2); EOSINOPHILS % (AUTO) 1.4 % (0-6); HEMATOCRIT 27.7 % (36.0-47.0); HEMOGLOBIN 9.1 g/dL (12.0-15.5); LYMPHOCYTES % (AUTO) 12.1 % (13-45); MEAN CORPUSCULAR HEMOGLOBIN 27.7 pg (27.0-33.4); MEAN CORPUSCULAR HGB CONC 32.7 g/dL (32.0-36.0); MEAN CORPUSCULAR VOLUME 85 fl (80-97); MONOCYTES % (AUTO) 2.2 % (3-13); PLATELET COUNT 284 10^3/uL (150-450); RED BLOOD COUNT 3.27 10^6/uL (3.72-5.28); RED CELL DISTRIBUTION WIDTH 16.7 % (11.5-14.0); TOTAL CELLS COUNTED % (AUTO) 100 %; WHITE BLOOD COUNT 8.8 10^3/uL (4.0-10.5)
[2019-04-07 15:17] LABS: ALBUMIN 2.9 g/dL (3.5-5.0); ALKALINE PHOSPHATASE 56 U/L (38-126); ANION GAP 8 (5-19); ASPARTATE AMINO TRANSFERASE 17 U/L (14-36); BILIRUBIN,DIRECT 0.3 mg/dL (0.0-0.4); BILIRUBIN,TOTAL 0.3 mg/dL (0.2-1.3); BLOOD UREA NITROGEN 19 mg/dL (7-20); CALCIUM 10.7 mg/dL (8.4-10.2); CARBON DIOXIDE 30 mmol/L (22-30); CHLORIDE 101 mmol/L (98-107); GLUCOSE 139 mg/dL (75-110); POTASSIUM 3.7 mmol/L (3.6-5.0); TOTAL PROTEIN 8.2 g/dL (6.3-8.2)
[2019-04-07] MEDS: LOSARTAN POTASSIUM 50 MG TABLET PO SCH (15:26)
[2019-04-07] MEDS: HYDROCHLOROTHIAZIDE 25 MG TABLET PO SCH (15:26)
[2019-04-07] MEDS: ATORVASTATIN CALCIUM 10 MG TABLET PO SCH (21:20)
[2019-04-07] MEDS: PHARMACY COMMUNICATION ORDER MC SCH (21:28)
[2019-04-08 05:39] LABS: ABSOLUTE LYMPHOCYTES (AUTO) 0.7 10^3/uL (0.5-4.7); ABSOLUTE MONOCYTES (AUTO) 0.3 10^3/uL (0.1-1.4); ABSOLUTE NEUT (AUTO) 9.6 10^3/uL (1.7-8.2); BASOPHILS % (AUTO) 0.1 % (0-2); HEMATOCRIT 27.1 % (36.0-47.0); LYMPHOCYTES % (AUTO) 6.7 % (13-45); MEAN CORPUSCULAR HEMOGLOBIN 28.2 pg (27.0-33.4); MEAN CORPUSCULAR HGB CONC 33.4 g/dL (32.0-36.0); MEAN CORPUSCULAR VOLUME 84 fl (80-97); MONOCYTES % (AUTO) 2.9 % (3-13); PLATELET COUNT 305 10^3/uL (150-450); RED BLOOD COUNT 3.21 10^6/uL (3.72-5.28); RED CELL DISTRIBUTION WIDTH 16.8 % (11.5-14.0); SEGMENTED NEUTROPHILS % (AUTO) 90.3 % (42-78); TOTAL CELLS COUNTED % (AUTO) 100 %; WHITE BLOOD COUNT 10.6 10^3/uL (4.0-10.5)
[2019-04-08 05:54] LABS: ALBUMIN 3.1 g/dL (3.5-5.0); ALKALINE PHOSPHATASE 59 U/L (38-126); ANION GAP 7 (5-19); ASPARTATE AMINO TRANSFERASE 19 U/L (14-36); BILIRUBIN,DIRECT 0.1 mg/dL (0.0-0.4); BILIRUBIN,TOTAL 0.1 mg/dL (0.2-1.3); BLOOD UREA NITROGEN 25 mg/dL (7-20); CALCIUM 10.5 mg/dL (8.4-10.2); CARBON DIOXIDE 31 mmol/L (22-30); CHLORIDE 100 mmol/L (98-107); GLUCOSE 165 mg/dL (75-110); POTASSIUM 3.7 mmol/L (3.6-5.0); TOTAL PROTEIN 8.4 g/dL (6.3-8.2)
[2019-04-08] MEDS: PANTOPRAZOLE SODIUM 40 MG TABLET.DR PO SCH (06:12)
[2019-04-08] MEDS: OXYCODONE-ACETAMINOPHEN 5-325 MG TABLET PO PRN (08:09)
[2019-04-08] MEDS: HYDROCHLOROTHIAZIDE 25 MG TABLET PO SCH (09:51)
[2019-04-08] MEDS: ENOXAPARIN SODIUM INJ 30 MG/0.3 ML DISP.SYRIN SUBCUT SCH (09:52)
[2019-04-08] MEDS: DOCUSATE SODIUM 100 MG CAPSULE PO SCH (09:52)
[2019-04-08] MEDS: LOSARTAN POTASSIUM 50 MG TABLET PO SCH (09:52)
[2019-04-08] MEDS: MAGNESIUM OXIDE 400 MG TABLET PO SCH (09:52)
[2019-04-08] MEDS: CYANOCOBALAMIN (VITAMIN B-12) 1,000 MCG TABLET PO SCH (09:52)
[2019-04-08] MEDS: LIDOCAINE 5% (700 MG) TRANSDERMAL ADH..PATCH TP SCH (11:59)
--- NOTE | 2019-04-08 15:42 | PDOC DISCHARGE SUMMARY ---
General - Admit/Disc Date/PCP Admission Date/Primary Care Provider: 04/02/19 12:40 JUAN CALDERON MD Discharge Date: 04/08/19 - Discharge Diagnosis (1) Multiple myeloma Is this a current diagnosis for this admission?: Yes (2) Hypercalcemia of malignancy Is this a current diagnosis for this admission?: Yes (3) Acute kidney injury Is this a current diagnosis for this admission?: Yes (4) Right kidney mass Is this a current diagnosis for this admission?: Yes (5) Essential (primary) hypertension Is this a current diagnosis for this admission?: Yes (6) B12 deficiency anemia Is this a current diagnosis for this admission?: Yes (7) Coronary artery disease Is this a current diagnosis for this admission?: Yes - Additional Information Prescriptions: Oxycodone HCl/Acetaminophen [Percocet 5-325 mg Tablet] 1 tab PO Q4HP PRN #60 tablet PRN Reason: Cyanocobalamin (Vitamin B-12) [Vitamin B-12 1000 mcg Tablet] 1,000 mcg PO DAILY #90 tablet Home Medications: Carvedilol [Coreg 25 mg Tablet] 25 mg PO Q12 04/02/19 Cetirizine HCl [Zyrtec 10 mg Tablet] 10 mg PO DAILYP PRN 04/02/19 Clopidogrel Bisulfate [Plavix 75 mg Tablet] 75 mg PO DAILY 04/02/19 Ergocalciferol (Vitamin D2) [Drisdol 50,000 unit (1.25MG) Capsule] 50,000 unit PO .[id number] 04/02/19 Losartan/Hydrochlorothiazide [Losartan-Hctz 100-25 mg Tab] 1 each PO DAILY 04/02/19 Omeprazole 20 mg PO DAILYP PRN 04/02/19 Potassium Chloride [Klor-Con 10 Meq Capsule ER] 20 meq PO QHS 04/02/19 Pravastatin Sodium [Pravachol] 40 mg PO QHS 04/02/19 Acetaminophen [Tylenol 325 mg Tablet] 650 mg PO Q4HP PRN tablet 04/08/19 Cyanocobalamin (Vitamin B-12) [Vitamin B-12 1000 mcg Tablet] 1,000 mcg PO DAILY #90 tablet 04/08/19 Oxycodone HCl/Acetaminophen [Percocet 5-325 mg Tablet] 1 tab PO Q4HP PRN #60 tablet 04/08/19 History of Present Illness History of Present Illness: REGULO HINES is a 78 year old female she was admitted when she presented for evaluation of back pain, she was found to have, hypercalcemia, acute kidney injury, a right renal mass, anemia Hospital Course Hospital Course: The constellation of anemia, acute kidney injury, hypercalcemia suggest multiple myeloma, she was seen by oncology, evaluation done in the hospital including skeletal survey, protein electrophoresis was highly suggestive of multiple myeloma. She was treated with IV fluid pain control achieved with Percocet. The skeletal survey demonstrated extensive lytic lesions involving the extremity bones, the axial bones. She also underwent a bone marrow biopsy, the result is pending as of time of discharge. The protein electrophoresis showed elevated M spike, more than 30 g. She also has hypercalcemia of malignancy, treated with hydration, she was seen by oncology she had a dose of dexamethasone. Patient improved with treatment, the plan is to discharge patient home to follow outpatient with oncology for the treatment of the multiple myeloma. 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 Patient is stable enough for discharge at this time Physical Exam Vital Signs: Temp Pulse Resp BP Pulse Ox 97.5 F 85 16 153/73 H 93 04/08/19 12:13 04/08/19 12:13 04/08/19 12:13 04/08/19 12:13 04/08/19 12:13 Intake & Output 04/07/19 04/08/19 04/09/19 06:59 06:59 06:59 Intake Total 870 720 Output Total 1250 900 Balance -380 -180 Weight 100 kg 97.5 kg General appearance: PRESENT: no acute distress, well-developed, well-nourished Head exam: PRESENT: atraumatic, normocephalic Eye exam: PRESENT: conjunctiva pink, EOMI, PERRLA Ear exam: PRESENT: normal external ear exam Mouth exam: PRESENT: moist, tongue midline Neck exam: PRESENT: full ROM Respiratory exam: PRESENT: clear to auscultation loki Cardiovascular exam: PRESENT: RRR, +S1, +S2 Pulses: PRESENT: normal dorsalis pedis pul, +2 pedal pulses bilateral Vascular exam: PRESENT: normal capillary refill GI/Abdominal exam: PRESENT: normal bowel sounds, soft Rectal exam: PRESENT: deferred Neurological exam: PRESENT: alert, awake, oriented to person, oriented to place, oriented to time, oriented to situation, CN II-XII grossly intact Psychiatric exam: PRESENT: appropriate affect, normal mood Skin exam: PRESENT: dry, intact, warm Results Laboratory Results: 04/08/19 04:47 04/08/19 04:47 04/08/19 04/08/19 04:47 04:47 WBC 10.6 H RBC 3.21 L Hgb 9.0 L Hct 27.1 L MCV 84 MCH 28.2 MCHC 33.4 RDW 16.8 H Plt Count 305 Seg Neutrophils % 90.3 H Sodium 138.4 Potassium 3.7 Chloride 100 Carbon Dioxide 31 H Anion Gap 7 BUN 25 H Creatinine 1.42 H Est GFR ( Amer) 43 L Glucose 165 H Calcium 10.5 H Total Bilirubin 0.1 L AST 19 Alkaline Phosphatase 59 Total Protein 8.4 H Albumin 3.1 L 04/02/19 04/02/19 08:52 08:52 Creatine Kinase 64 CK-MB (CK-2) 0.48 Troponin I 0.017 Impressions: Abdomen/Pelvis CT 04/02/19 00:00 IMPRESSION: 1. Diffuse bone lytic lesions are suggestive of metastatic disease or myeloma. 2. Ill-defined mass in the right kidney. Renal cell carcinoma is in the differential. Skeletal Survey 04/05/19 07:30 IMPRESSION: Widespread bony metastatic disease. Bone Marrow Biopsy w/ CT 04/06/19 00:00 IMPRESSION: CT GUIDED ASPIRATE AND CORE BIOPSY OF THE LEFT POSTERIOR ILIAC CREST BONE MARROW PERFORMED WITHOUT IMMEDIATE COMPLICATION. PATHOLOGY PENDING. IV CONSCIOUS SEDATION WITHOUT COMPLICATION. Qualifiers - * PATIENT BEING DISCHARGED WITH ANY OF THE FOLLOWING DIAGNOSIS: No VTE patient discharged on overlapping Therapy?: No Reason(s) for not prescribing Overlap Therapy:: Not indicated Stroke Pt being discharged on Anti-thrombolytic therapy?: No Reason(s) for not prescribing Anti-thrombolytic therapy:: Not indicated Stroke Pt being discharged on Anti-coagulation therapy?: No Reason(s) for not prescribing Anti-coagulation therapy:: Not indicated Stroke Pt being discharged on Statins?: No Reason(s) for not prescribing Statins therapy:: Not indicated NM Pt being discharged on Aspirin therapy?: No Reason(s) for not prescribing Aspirin therapy:: Not indicated NM Pt being discharged on Statins?: No Reason(s) for not prescribing Statin therapy:: Not indicated NM Pt discharged ACEI/ARBS?: No Reason(s) for not prescribing ACEI/ARBS:: Not indicated Acute Heart Failure - Is this a Heart Failure Patient?: No Follow-up Appointment scheduled within 7 days?: Yes
[2019-04-08 16:28] VITALS: BP 166/56
[2019-05-03] MEDS ORDERED: ERGOCALCIFEROL (VITAMIN D2) 50000 UNIT (1.25 MG) CAPSULE PO SCH (10:00)
== END 2019-04-08 16:55 | disposition home or self-care (01) | DRG 841 ==
LOC: ER 07:36 → EH 12:40 → 3S 15:51
PROVIDERS: ADMIT Internal Medicine; ATTEND Internal Medicine
PROC: 07DR3ZX Extraction of Iliac Bone Marrow, Percutaneous Approach, Diagnostic (ICD-10-PCS; principal; 2019-04-06)
DX: C90.00 Multiple myeloma not having achieved remission (principal); N17.9 Acute kidney failure, unspecified; E83.52 Hypercalcemia; N28.89 Other specified disorders of kidney and ureter; I25.10 Atherosclerotic heart disease of native coronary artery without angina pectoris; I10 Essential (primary) hypertension; E83.42 Hypomagnesemia; D51.9 Vitamin B12 deficiency anemia, unspecified; M19.90 Unspecified osteoarthritis, unspecified site; F32.9 Major depressive disorder, single episode, unspecified; Z79.02 Long term (current) use of antithrombotics/antiplatelets; Z95.5 Presence of coronary angioplasty implant and graft; Z90.710 Acquired absence of both cervix and uterus; Z85.42 Personal history of malignant neoplasm of other parts of uterus; Z79.899 Other long term (current) drug therapy
CPT/HCPCS: 36415; 38221; 72100; 74177; 77075; 80048; 80053; 81001; 82306; 82550; 82553; 82607; 82728; 82746; 83540; 83550; 83690; 83735; 83970; 84166; 84443; 84484; 85025; 85045; 85610; 85730; 86320; 87086; 93005; 93010; 96360; 99285; J0630; J1650; J2250; J2270; J2405; J2550; J3010; J3475; J3490; J7030

== ENCOUNTER 2019-05-09 10:20 | Observation (INO) | payer MEDICARE ==
--- NOTE | 2019-05-09 10:50 | ER Document Report ---
ED Medical Screen (RME) - General Chief Complaint: General Weakness Stated Complaint: WEAKNESS Time Seen by Provider: 05/09/19 10:42 Primary Care Provider: JUAN CALDERON MD [Primary Care Provider] - Follow up as needed Mode of Arrival: Medic Information source: Patient, Relative Notes: Patient presents after syncopal episode this morning around 9 AM. Family member states that patient fell around 3 and then again at 9 today. The 9 AM fall was witnessed and family members do report she hit her head. Patient did have nausea and vomiting. Patient also injured the left knee. Patient presently denies any complaints. Patient had had complaints of dizziness but states that this is improved at this time. Patient with recent diagnosis of multiple myeloma and is currently taking oral chemotherapy. I have greeted and performed a rapid initial assessment of this patient. A comprehensive ED assessment and evaluation of the patient, analysis of test resu lts and completion of the medical decision making process will be conducted by additional ED providers. TRAVEL OUTSIDE OF THE [place] IN LAST 30 DAYS: No - Related Data Allergies/Adverse Reactions: No Known Allergies Allergy (Verified 09/03/17 07:26) Past Medical History - Past Medical History Cardiac Medical History: Reports: Hx Coronary Artery Disease, Hx Hypercholesterolemia, Hx Hypertension Denies: Hx Heart Attack Pulmonary Medical History: Denies: Hx Asthma, Hx Bronchitis, Hx COPD, Hx Pneumonia Neurological Medical History: Denies: Hx Cerebrovascular Accident, Hx Seizures Musculoskeltal Medical History: Reports Hx Arthritis Psychiatric Medical History: Reports: Hx Depression Past Surgical History: Reports: Hx Cholecystectomy, Hx Hysterectomy. Denies: Hx Pacemaker - Immunizations Hx Diphtheria, Pertussis, Tetanus Vaccination: No Physical Exam - Cardiovascular Rhythm: Regular Heart sounds: S1 appreciated, S2 appreciated Doctor's Discharge - Discharge Referrals: JUAN CALDERON MD [Primary Care Provider] - Follow up as needed
[2019-05-09 11:26] LABS: ALBUMIN 2.1 g/dL (3.5-5.0); ALKALINE PHOSPHATASE 46 U/L (38-126); ANION GAP 6 (5-19); ASPARTATE AMINO TRANSFERASE 9 U/L (14-36); BILIRUBIN,TOTAL 0.4 mg/dL (0.2-1.3); BLOOD UREA NITROGEN 73 mg/dL (7-20); CALCIUM 7.3 mg/dL (8.4-10.2); CARBON DIOXIDE 23 mmol/L (22-30); CHLORIDE 103 mmol/L (98-107); GLUCOSE 123 mg/dL (75-110); POTASSIUM 3.7 mmol/L (3.6-5.0); TOTAL PROTEIN 5.1 g/dL (6.3-8.2)
--- NOTE | 2019-05-09 12:26 | RADIOLOGY REPORT (SQ) ---
EXAM DESCRIPTION: KUB/ABDOMEN (SINGLE VIEW) COMPLETED DATE/TIME: 05/09/2019 12:03 pm REASON FOR STUDY: Feel bloated,no appetite,recently start oral chemo COMPARISON: None. NUMBER OF VIEWS: One view. TECHNIQUE: Supine radiographic image of the abdomen acquired. LIMITATIONS: None. FINDINGS: BOWEL GAS PATTERN: Normal bowel gas pattern. No dilated loops. CALCIFICATIONS: No suspicious calcifications. SOFT TISSUES: No gross mass or suggestion of organomegaly. HARDWARE: None in the abdomen. BONES: Degenerative changes at the right hip and visualized thoracolumbar spine. Mild levoconvex sc oliosis of the lumbar spine. Compression deformity involving the T12 vertebra, age is indeterminate. OTHER: Prior cholecystectomy. Surgical metallic clips overlie the upper pelvic region. IMPRESSION: 1. NO RADIOGRAPHIC EVIDENCE FOR ACUTE ABDOMINAL DISEASE. 2. Compression deformity involving the T12 vertebra, age is indeterminate. 3. Additional findings as above. TECHNICAL DOCUMENTATION: JOB ID: [id number] [employer]- All Rights Reserved Reading location - IP/workstation name: [email or web address]
[2019-05-09 12:27] LABS: HEMATOCRIT 28.1 % (36.0-47.0); HEMOGLOBIN 9.4 g/dL (12.0-15.5); MEAN CORPUSCULAR HEMOGLOBIN 28.5 pg (27.0-33.4); MEAN CORPUSCULAR HGB CONC 33.4 g/dL (32.0-36.0); MEAN CORPUSCULAR VOLUME 85 fl (80-97); RED CELL DISTRIBUTION WIDTH 17.8 % (11.5-14.0); WHITE BLOOD COUNT 10.3 10^3/uL (4.0-10.5)
[2019-05-09 13:01] LABS: PLATELET COUNT 35 10^3/uL (150-450)
[2019-05-09 13:09] LABS: ABSOLUTE MONOCYTES # (MANUAL) 0.5 10^3/uL (0.1-1.4); BAND NEUTROPHILS % (MANUAL) 6 % (3-5); BASOPHILS % (MANUAL) 0 % (0-2); EOSINOPHILS % (MANUAL) 0 % (0-6); LYMPHOCYTES % (MANUAL) 10 % (13-45); METAMYELOCYTES % (MANUAL) 1 % (0); MONOCYTES % (MANUAL) 5 % (3-13); SEGMENTED NEUTROPHILS % (MAN) 78 % (42-78); TOTAL CELLS COUNTED 100
[2019-05-09 13:10] LABS: ANISOCYTOSIS 1+; OVALOCYTES SLIGHT; PLATELET COMMENT DECREASED; POIKILOCYTOSIS SLIGHT
--- NOTE | 2019-05-09 13:11 | EKG REPORT ---
SEVERITY:- ABNORMAL ECG - SINUS RHYTHM VENTRICULAR PREMATURE COMPLEX LEFT BUNDLE BRANCH BLOCK : Confirmed by: Abiel Esposito MD 09-May-2019 13:10:01
--- NOTE | 2019-05-09 14:00 | ER Document Report ---
Entered by AMBROCIO MALIK SCRIBE 05/09/19 1124 Acting as scribe for:STACIE PENNINGTON MD ED General - General Chief Complaint: General Weakness Stated Complaint: WEAKNESS Time Seen by Provider: 05/09/19 10:42 Primary Care Provider: JUAN CALDERON MD [Primary Care Provider] - Follow up as needed Mode of Arrival: Medic Information source: Patient, Relative Notes: Patient is a 78-year-old female who presents to the emergency department today with complaints of hypotension. Patient was recently diagnosed with multiple myeloma and is undergoing chemotherapy. Patient states she has not had any recent vomiting or diarrhea but last week she was having a fair amount of diarrhea. Patient complains of dry heaving which began this morning at 0900. Patient states that she is not really eating much stating she does not have an appetite and nothing tastes right. Patient states she also feels bloated. Prior to arrival, patient lost her balance in the bathroom and had a gentle fall. Patient complains of minimal left knee pain from the fall. Patient denies loss of consciousness. TRAVEL OUTSIDE OF THE [place] IN LAST 30 DAYS: No - Related Data Allergies/Adverse Reactions: No Known Allergies Allergy (Verified 09/03/17 07:26) Past Medical History - General Information source: Patient, Relative - Social History Smoking Status: Never Smoker Cigarette use (# per day): No Chew tobacco use (# tins/day): No Smoking Education Provided: No Frequency of alcohol use: None Drug Abuse: None Lives with: Family Family History: Reviewed & Not Pertinent Patient has suicidal ideation: No Patient has homicidal ideation: No - Past Medical History Cardiac Medical History: Reports: Hx Coronary Artery Disease, Hx Hypercholesterolemia, Hx Hypertension Malignancy Medical History: Reports: Other - Multiple myeloma Musculoskeletal Medical History: Reports Hx Arthritis Psychiatric Medical History: Reports: Hx Depression Past Surgical History: Reports: Hx Cholecystectomy, Hx Hysterectomy - Immunizations Hx Diphtheria, Pertussis, Tetanus Vaccination: No Hx Pneumococcal Vaccination: 05/03/15 Review of Systems - Review of Systems Constitutional: See HPI, Other - no appetite EENT: No symptoms reported Cardiovascular: No symptoms reported Respiratory: No symptoms reported Gastrointestinal: See HPI, Other - bloated. denies: Diarrhea, Vomiting Genitourinary: No symptoms reported Female Genitourinary: No symptoms reported Musculoskeletal: See HPI, Joint pain - left knee Skin: No symptoms reported Hematologic/Lymphatic: No symptoms reported Neurological/Psychological: denies: Lost consciousness -: Yes All other systems reviewed and negative Physical Exam - Vital signs Vitals: Temp Resp BP Pulse Ox 97.2 F 15 94/52 L 100 05/09/19 10:30 05/09/19 10:30 05/09/19 10:30 05/09/19 10:30 - Notes Notes: Physical Exam: General: Alert, morbidly obese. HEENT: Normocephalic. Atraumatic. PERRL. Extraocular movements intact. Oropharynx clear. Neck: Supple. Non-tender. Respiratory: No respiratory distress. Clear and equal breath sounds bilaterally. Cardiovascular: Regular rate and rhythm. Abdominal: Obese. Non-tender. No distension. Normal Bowel Sounds. Back: No gross abnormalities. Extremities: Moves all four extremities. Upper extremities: Normal inspection. Normal ROM. Lower extremities: Left knee has osteoarthritic changes without effusion, tenderness to palpation, or bruising. No edema. Normal ROM. Neurological: Normal cognition. AAOx4. Normal speech. Psychological: Normal affect. Normal Mood. Skin: Warm. Dry. Normal color. Course - Vital Signs Vital signs: Temp Pulse Resp BP Pulse Ox 97.2 F 11 L 104/51 L 100 05/09/19 10:30 05/09/19 13:01 05/09/19 13:01 05/09/19 13:01 - Laboratory Result Diagrams: 05/09/19 12:10 05/09/19 10:38 Laboratory results interpreted by me: 05/09/19 05/09/19 05/09/19 10:38 12:10 15:35 RBC 3.30 L Hgb 9.4 L Hct 28.1 L RDW 17.8 H Plt Count 35 L Band Neutrophils % 6 H Lymphocytes % (Manual) 10 L Metamyelocytes % 1 H Abs Neuts (Manual) 8.8 H Sodium 132.3 L BUN 73 H Creatinine 1.40 H Est GFR ( Amer) 44 L Est GFR (MDRD) Non-Af 36 L Glucose 123 H Calcium 7.3 L Magnesium 2.4 H AST 9 L Total Protein 5.1 L Albumin 2.1 L Urine Blood LARGE H Ur Leukocyte Esterase MODERATE H - EKG Interpretation by [facility] EKG shows normal: Sinus rhythm, [place], Intervals, QRS Complexes, ST-T Waves Rate: Normal - 89 Rhythm: NSR, PVC's [place]/QRS: LBBB When compared to previous EKG there are: No significant change - Consults Dr. Calderon Consulted provider: will see as inpatient Critical Care Note - Critical Care Note Total time excluding time spent on procedures (mins): 45 Discharge - Discharge Clinical Impression: Dehydration Hypotension Qualifiers: Hypotension type: unspecified hypotension type Qualified Code(s): I95.9 - Hypotension, unspecified B12 deficiency anemia Qualifiers: Vitamin B12 deficiency anemia type: unspecified B12 deficiency Qualified Code(s): D51.9 - Vitamin B12 deficiency anemia, unspecified Condition: Stable Disposition: ADMITTED INPATIENT Admitting Provider: Sabrina Unit Admitted: Telemetry Referrals: JUAN CALDERON MD [Primary Care Provider] - Follow up as needed Scribe Attestation: 05/09/19 14:14 I personally performed the services described in the documentation, reviewed and edited the documentation which was dictated to the scribe in my presence, and it accurately records my words and actions. I personally performed the services described in the documentation, reviewed and edited the documentation which was dictated to the scribe in my presence, and it accurately records my words and actions.
[2019-05-09] MEDS: RINGERS SOLUTION,LACTATED 1,000 ML IV PRN ×2 (14:19→15:21)
[2019-05-09 15:59] LABS: AMORPHOUS SEDIMENT,URINE TRACE /HPF; APPEARANCE,URINE CLOUDY; BILIRUBIN,URINE NEGATIVE (NEGATIVE); COLOR,URINE YELLOW; GLUCOSE, URINE NEGATIVE (NEGATIVE); KETONES,URINE NEGATIVE (NEGATIVE); LEUKOCYTE ESTERASE,URINE MODERATE (NEGATIVE); NITRITE,URINE NEGATIVE (NEGATIVE); PROTEIN,URINE NEGATIVE (NEGATIVE); URINE SPECIFIC GRAVITY 1.015; UROBILINOGEN,URINE NEGATIVE mg/dL (<2.0)
--- NOTE | 2019-05-09 20:01 | PDOC H&P ---
History of Present Illness Admission Date/PCP: 05/09/19 17:25 JUAN CALDERON MD History of Present Illness: REGULO HINES is a 78 year old female,She was brought to the emergency room by her sister for evaluation of a fall, she stated that she also fell yesterday. She was recently admitted and discharged from this hospital about a month ago when she was diagnosed with multiple myeloma and also a renal mass, she is presently undergoing chemotherapy by the oncologist Dr. Craven. She was supposed to have chemotherapy today but when she fell due to extreme fatigueThe sister called EMS to I have transferred to the hospital for evaluation. In the emergency room she was evaluated, the blood pressure recorded was in the low 90s systolic, she was also found to have azotemia, the BUN was elevated at 73 when compared to discharge BUN 25, The serum creatinine is 1.4 which is the same from discharge. She is presently on active therapy for multiple myeloma, she has diminished intake though sister said she drinks water quite well. She was admitted for observation essentially for rehydration, hopefully discharge in 24 hours Past Medical History Cardiac Medical History: Reports: Coronary Artery Disease, Hyperlipidema, Hypertension Malignancy Medical History: Reports: Other - Multiple myeloma Musculoskeltal Medical History: Reports: Arthritis Psychiatric Medical History: Reports: Depression Hematology: Reports: Anemia - 2006 Past Surgical History Past Surgical History: Reports: Cholecystectomy, Hysterectomy Denies: Pacemaker Social History Lives with: Family Smoking Status: Never Smoker Frequency of Alcohol Use: None Hx Recreational Drug Use: No Hx Prescription Drug Abuse: No Family History Family History: Reviewed & Not Pertinent Parental Family History Reviewed: Yes Children Family History Reviewed: Yes Sibling(s) Family History Reviewed.: Yes Medication/Allergy Home Medications: Oxycodone HCl/Acetaminophen [Percocet 5-325 mg Tablet] 1 tab PO Q4HP PRN 05/09/19 RX: Acyclovir [Acyclovir 400 mg Tablet] 400 mg PO BID 05/09/19 RX: Aspirin [Ecotrin 81 mg EC Tablet] 81 mg PO DAILY 05/09/19 RX: Carvedilol [Coreg 25 mg Tablet] 25 mg PO Q12 05/09/19 RX: Cetirizine HCl [Zyrtec 10 mg Tablet] 10 mg PO DAILY 05/09/19 RX: Clopidogrel Bisulfate [Plavix 75 mg Tablet] 75 mg PO DAILY 05/09/19 RX: Ergocalciferol (Vitamin D2) [Drisdol 50,000 unit (1.25MG) Capsule] 50,000 unit PO . AND 05/09/19 RX: Losartan/Hydrochlorothiazide [Hyzaar 100-25 Tablet] 1 tab PO DAILY 05/09/19 RX: Ondansetron HCl [Zofran 8 mg Tablet] 8 mg PO Q8HP PRN 05/09/19 RX: Potassium Chloride [Klor-Con M10] 20 meq PO DAILY 05/09/19 RX: Pravastatin Sodium [Pravachol] 40 mg PO QHS 05/09/19 RX: Promethazine HCl [Phenergan 25 mg Tablet] 25 mg PO Q6HP PRN 05/09/19 Allergies/Adverse Reactions: No Known Allergies Allergy (Verified 09/03/17 07:26) Review of Systems Constitutional: ABSENT: chills, fever(s), headache(s), weight gain, weight loss Eyes: ABSENT: visual disturbances Ears: ABSENT: hearing changes Cardiovascular: ABSENT: chest pain, dyspnea on exertion, edema, orthropnea, palpitations Respiratory: ABSENT: cough, hemoptysis Gastrointestinal: ABSENT: abdominal pain, constipation, diarrhea, hematemesis, hematochezia, nausea, vomiting Genitourinary: ABSENT: dysuria, hematuria Musculoskeletal: ABSENT: joint swelling Integumentary: ABSENT: rash, wounds Neurological: ABSENT: abnormal gait, abnormal speech, confusion, dizziness, focal weakness, syncope Psychiatric: ABSENT: anxiety, depression, homidical ideation, suicidal ideation Endocrine: ABSENT: cold intolerance, heat intolerance, menstrual abnormalities, polydipsia, polyuria Hematologic/Lymphatic: ABSENT: easy bleeding, easy bruising, lymphadenopathy Physical Exam Vital Signs: Temp Pulse Resp BP Pulse Ox 97.5 F 15 101/57 L 100 05/09/19 18:21 05/09/19 18:01 05/09/19 18:01 05/09/19 18:01 Intake & Output 05/08/19 05/09/19 05/10/19 06:59 06:59 06:59 Intake Total 1999 Balance 1999 Weight 94.347 kg General appearance: PRESENT: no acute distress Head exam: PRESENT: atraumatic, normocephalic Eye exam: PRESENT: PERRLA Ear exam: PRESENT: normal external ear exam Neck exam: PRESENT: full ROM Respiratory exam: PRESENT: clear to auscultation loki Cardiovascular exam: PRESENT: RRR, +S1, +S2 Vascular exam: PRESENT: normal capillary refill GI/Abdominal exam: PRESENT: normal bowel sounds, soft Rectal exam: PRESENT: deferred Neurological exam: PRESENT: alert, CN II-XII grossly intact Psychiatric exam: PRESENT: appropriate affect, normal mood Skin exam: PRESENT: dry, intact, warm Results Laboratory Results: 05/09/19 12:10 05/09/19 10:38 05/09/19 05/09/19 05/09/19 10:38 10:38 12:10 WBC Cancelled 10.3 RBC Cancelled 3.30 L Hgb Cancelled 9.4 L Hct Cancelled 28.1 L MCV Cancelled 85 MCH Cancelled 28.5 MCHC Cancelled 33.4 RDW Cancelled 17.8 H Plt Count Cancelled 35 L Seg Neutrophils % Cancelled Not Reportable Sodium 132.3 L Potassium 3.7 Chloride 103 Carbon Dioxide 23 Anion Gap 6 BUN 73 H Creatinine 1.40 H Est GFR ( Amer) 44 L Glucose 123 H Calcium 7.3 L Magnesium 2.4 H Total Bilirubin 0.4 AST 9 L Alkaline Phosphatase 46 Total Protein 5.1 L Albumin 2.1 L Urine Color Urine Appearance Urine pH Ur Specific [place] Urine Protein Urine Glucose (UA) Urine Ketones Urine Blood Urine Nitrite Ur Leukocyte Esterase Urine WBC (Auto) Urine RBC (Auto) 05/09/19 15:35 WBC RBC Hgb Hct MCV MCH MCHC RDW Plt Count Seg Neutrophils % Sodium Potassium Chloride Carbon Dioxide Anion Gap BUN Creatinine Est GFR ( Amer) Glucose Calcium Magnesium Total Bilirubin AST Alkaline Phosphatase Total Protein Albumin Urine Color YELLOW Urine Appearance CLOUDY Urine pH 5.0 Ur Specific [place] 1.015 Urine Protein NEGATIVE Urine Glucose (UA) NEGATIVE Urine Ketones NEGATIVE Urine Blood LARGE H Urine Nitrite NEGATIVE Ur Leukocyte Esterase MODERATE H Urine WBC (Auto) 12 Urine RBC (Auto) 58 05/09/19 10:38 Troponin I < 0.012 Impressions: KUB X-Ray 05/09/19 11:21 IMPRESSION: 1. NO RADIOGRAPHIC EVIDENCE FOR ACUTE ABDOMINAL DISEASE. 2. Compression deformity involving the T12 vertebra, age is indeterminate. 3. Additional findings as above. Assessment & Plan - Diagnosis (1) Dehydration Is this a current diagnosis for this admission?: Yes Plan: Patient is admitted for the management of dehydration (2) Hypotension Qualifiers: Hypotension type: unspecified hypotension type Qualified Code(s): I95.9 - Hypotension, unspecified Is this a current diagnosis for this admission?: Yes (3) Multiple myeloma Qualifiers: Multiple myeloma remission status: not in remission Qualified Code(s): C90.00 - Multiple myeloma not having achieved remission Is this a current diagnosis for this admission?: Yes (4) Right kidney mass Is this a current diagnosis for this admission?: Yes (5) Chemotherapy-induced thrombocytopenia Is this a current diagnosis for this admission?: Yes Plan: Patient presently on chemotherapy for multiple myeloma
[2019-05-09] MEDS: NORMAL SALINE 1000 ML 1,000 ML IV PRN (20:25)
[2019-05-09 20:42] LABS: FREE T4 (FREE THYROXINE) 1.37 ng/dL (0.78-2.19)
[2019-05-09 20:56] LABS: THYROID STIMULATING HORMONE 0.08 uIU/mL (0.47-4.68)
[2019-05-09 21:03] LABS: ANION GAP 7 (5-19); BLOOD UREA NITROGEN 74 mg/dL (7-20); CALCIUM 7.2 mg/dL (8.4-10.2); CARBON DIOXIDE 24 mmol/L (22-30); CHLORIDE 102 mmol/L (98-107); CREATINE KINASE 21 U/L (30-135); GLUCOSE 96 mg/dL (75-110); POTASSIUM 3.7 mmol/L (3.6-5.0)
[2019-05-09 21:14] LABS: CREATINE KINASE MB 1.05 ng/mL (<4.55)
[2019-05-09 21:17] LABS: TROPONIN I < 0.012 ng/mL
[2019-05-10] MEDS: HEPARIN SOD (PORCINE) 5,000 UNIT/ML 1 ML VIAL SUBCUT SCH ×4 (00:52→21:32)
[2019-05-10 02:49] LABS: HEMATOCRIT 25.6 % (36.0-47.0); HEMOGLOBIN 8.6 g/dL (12.0-15.5); MEAN CORPUSCULAR HGB CONC 33.5 g/dL (32.0-36.0); MEAN CORPUSCULAR VOLUME 84 fl (80-97); RED BLOOD COUNT 3.06 10^6/uL (3.72-5.28); RED CELL DISTRIBUTION WIDTH 17.9 % (11.5-14.0); WHITE BLOOD COUNT 7.4 10^3/uL (4.0-10.5)
[2019-05-10 03:12] LABS: PLATELET COUNT 17 10^3/uL (150-450)
[2019-05-10 03:15] LABS: ABSOLUTE LYMPHOCYTES# (MANUAL) 0.6 10^3/uL (0.5-4.7); ABSOLUTE MONOCYTES # (MANUAL) 0.1 10^3/uL (0.1-1.4); BAND NEUTROPHILS % (MANUAL) 6 % (3-5); BASOPHILS % (MANUAL) 0 % (0-2); EOSINOPHILS % (MANUAL) 1 % (0-6); LYMPHOCYTES % (MANUAL) 8 % (13-45); MONOCYTES % (MANUAL) 1 % (3-13); SEGMENTED NEUTROPHILS % (MAN) 84 % (42-78); TOTAL CELLS COUNTED 100
[2019-05-10 03:16] LABS: ANISOCYTOSIS 1+; HYPOCHROMASIA SLIGHT; PLATELET COMMENT DECREASED
[2019-05-10 03:19] LABS: ALBUMIN 2.1 g/dL (3.5-5.0); ALKALINE PHOSPHATASE 48 U/L (38-126); ASPARTATE AMINO TRANSFERASE 9 U/L (14-36); BILIRUBIN,DIRECT 0.1 mg/dL (0.0-0.4); BILIRUBIN,TOTAL 0.4 mg/dL (0.2-1.3); TOTAL PROTEIN 5.1 g/dL (6.3-8.2)
[2019-05-10 03:31] LABS: CREATINE KINASE MB 1.15 ng/mL (<4.55)
[2019-05-10 03:39] LABS: TROPONIN I < 0.012 ng/mL
[2019-05-10 09:15] LABS: HEMATOCRIT 24.7 % (36.0-47.0); HEMOGLOBIN 8.2 g/dL (12.0-15.5); MEAN CORPUSCULAR HEMOGLOBIN 28.1 pg (27.0-33.4); MEAN CORPUSCULAR HGB CONC 33.3 g/dL (32.0-36.0); MEAN CORPUSCULAR VOLUME 84 fl (80-97); RED BLOOD COUNT 2.92 10^6/uL (3.72-5.28); WHITE BLOOD COUNT 6.7 10^3/uL (4.0-10.5)
[2019-05-10 09:33] LABS: ALBUMIN 2.1 g/dL (3.5-5.0); ALKALINE PHOSPHATASE 48 U/L (38-126); ANION GAP 5 (5-19); ASPARTATE AMINO TRANSFERASE 9 U/L (14-36); BILIRUBIN,DIRECT 0.1 mg/dL (0.0-0.4); BILIRUBIN,TOTAL 0.4 mg/dL (0.2-1.3); BLOOD UREA NITROGEN 68 mg/dL (7-20); CALCIUM 7.1 mg/dL (8.4-10.2); CARBON DIOXIDE 24 mmol/L (22-30); CHLORIDE 106 mmol/L (98-107); GLUCOSE 89 mg/dL (75-110); POTASSIUM 3.5 mmol/L (3.6-5.0); TOTAL PROTEIN 5.2 g/dL (6.3-8.2)
[2019-05-10 09:34] LABS: ABSOLUTE LYMPHOCYTES# (MANUAL) 0.3 10^3/uL (0.5-4.7); ABSOLUTE MONOCYTES # (MANUAL) 0.2 10^3/uL (0.1-1.4); BAND NEUTROPHILS % (MANUAL) 2 % (3-5); BASOPHILS % (MANUAL) 0 % (0-2); EOSINOPHILS % (MANUAL) 0 % (0-6); LYMPHOCYTES % (MANUAL) 4 % (13-45); MONOCYTES % (MANUAL) 3 % (3-13); NUCLEATED RED BLOOD CELLS 1 /100 WBC (0); SEGMENTED NEUTROPHILS % (MAN) 91 % (42-78); TOTAL CELLS COUNTED 100
[2019-05-10 09:35] LABS: ANISOCYTOSIS 1+
[2019-05-10 09:37] LABS: PLATELET COMMENT DECREASED; PLATELET COUNT 18 10^3/uL (150-450)
[2019-05-10 09:45] LABS: CREATINE KINASE MB 1.61 ng/mL (<4.55); TROPONIN I 0.012 ng/mL
[2019-05-10 10:20] LABS: PATH REVIEW PATHOLOGIST REVIEWED
[2019-05-10] MEDS: NORMAL SALINE 1000 ML 1,000 ML IV PRN (14:50)
--- NOTE | 2019-05-10 20:12 | PDOC PROGRESS REPORT ---
Subjective Progress Note for:: 05/10/19 Subjective:: Patient seen by the bedside, she continues to recover slowly admitted for severe dehydration with a background of multiple myeloma on active chemotherapy. There is also severe thrombocytopenia, chemotherapy related Reason For Visit: HYPOTENSION,ACUTE KIDNEY INJURY,DEHYDRATION Physical Exam Vital Signs: Temp Pulse Resp BP Pulse Ox 97.6 F 66 17 114/47 L 99 05/10/19 08:17 05/10/19 14:25 05/09/19 22:56 05/10/19 08:17 05/10/19 08:17 Intake & Output 05/09/19 05/10/19 05/11/19 06:59 06:59 06:59 Intake Total 1999 176 Balance 1999 176 Weight 94.347 kg General appearance: PRESENT: no acute distress Eye exam: PRESENT: PERRLA Respiratory exam: PRESENT: clear to auscultation loki Cardiovascular exam: PRESENT: +S1, +S2 GI/Abdominal exam: PRESENT: soft Neurological exam: PRESENT: alert, CN II-XII grossly intact Results Laboratory Results: 05/10/19 08:20 05/10/19 08:20 05/09/19 05/09/19 05/10/19 10:38 19:59 02:32 WBC 7.4 RBC 3.06 L Hgb 8.6 L Hct 25.6 L MCV 84 MCH 28.0 MCHC 33.5 RDW 17.9 H Plt Count 17 L* Seg Neutrophils % Not Reportable Sodium 133.2 L Potassium 3.7 Chloride 102 Carbon Dioxide 24 Anion Gap 7 BUN 74 H Creatinine 1.27 H Est GFR ( Amer) 49 L Glucose 96 Calcium 7.2 L Total Bilirubin AST Alkaline Phosphatase Total Protein Albumin TSH 0.08 L Free T4 1.37 05/10/19 05/10/19 05/10/19 02:32 08:20 08:20 WBC 6.7 RBC 2.92 L Hgb 8.2 L Hct 24.7 L MCV 84 MCH 28.1 MCHC 33.3 RDW 18.0 H Plt Count 18 L* Seg Neutrophils % Not Reportable Sodium 135.0 L Potassium 3.5 L Chloride 106 Carbon Dioxide 24 Anion Gap 5 BUN 68 H Creatinine 1.22 Est GFR ( Amer) 51 L Glucose 89 Calcium 7.1 L Total Bilirubin 0.4 0.4 AST 9 L 9 L Alkaline Phosphatase 48 48 Total Protein 5.1 L 5.2 L Albumin 2.1 L 2.1 L TSH Free T4 05/09/19 05/09/19 05/09/19 10:38 19:59 19:59 Creatine Kinase 21 L CK-MB (CK-2) 1.05 Troponin I < 0.012 < 0.012 05/10/19 05/10/19 05/10/19 02:32 02:32 08:20 Creatine Kinase 25 L 44 CK-MB (CK-2) 1.15 Troponin I < 0.012 05/10/19 08:20 Creatine Kinase CK-MB (CK-2) 1.61 Troponin I 0.012 Impressions: KUB X-Ray 05/09/19 11:21 IMPRESSION: 1. NO RADIOGRAPHIC EVIDENCE FOR ACUTE ABDOMINAL DISEASE. 2. Compression deformity involving the T12 vertebra, age is indeterminate. 3. Additional findings as above. Assessment & Plan - Diagnosis (1) Dehydration Is this a current diagnosis for this admission?: Yes (2) Hypotension Qualifiers: Hypotension type: unspecified hypotension type Qualified Code(s): I95.9 - Hypotension, unspecified Is this a current diagnosis for this admission?: Yes (3) Multiple myeloma Qualifiers: Multiple myeloma remission status: not in remission Qualified Code(s): C90.00 - Multiple myeloma not having achieved remission Is this a current diagnosis for this admission?: Yes (4) Right kidney mass Is this a current diagnosis for this admission?: Yes (5) Chemotherapy-induced thrombocytopenia Is this a current diagnosis for this admission?: Yes - Time Time Spent with patient: 15-24 minutes
[2019-05-11 05:01] LABS: ALBUMIN 2.1 g/dL (3.5-5.0); ALKALINE PHOSPHATASE 50 U/L (38-126); ASPARTATE AMINO TRANSFERASE 10 U/L (14-36); BILIRUBIN,DIRECT 0.1 mg/dL (0.0-0.4); BILIRUBIN,TOTAL 0.4 mg/dL (0.2-1.3)
[2019-05-11] MEDS: HEPARIN SOD (PORCINE) 5,000 UNIT/ML 1 ML VIAL SUBCUT SCH ×3 (05:08→22:03)
[2019-05-11] MEDS ORDERED: INFLUENZA QUAD (6MOS+) 2019-20 VAC 0.5 ML SYR IM ONE (08:00)
[2019-05-11] MEDS: NORMAL SALINE 1000 ML 1,000 ML IV PRN (14:18)
--- NOTE | 2019-05-11 14:49 | PDOC PROGRESS REPORT ---
Subjective Progress Note for:: 05/11/19 Subjective:: Patient seen by the bedside, she has E. coli UTI, pansensitive to most antibiotic. She continues to improve, I had a long discussion with patient and the sister in the room regarding her condition. She was admitted for observation but she does not seem strong enough to go home yet today, hopefully she be discharged home tomorrow, she will continue present IV fluid therapy, start p.o. Macrobid for E. coli UTI Reason For Visit: HYPOTENSION,ACUTE KIDNEY INJURY,DEHYDRATION Physical Exam Vital Signs: Temp Pulse Resp BP Pulse Ox 97.7 F 66 18 127/85 H 99 05/11/19 13:40 05/11/19 13:40 05/11/19 08:36 05/11/19 13:40 05/11/19 13:40 Intake & Output 05/10/19 05/11/19 05/12/19 06:59 06:59 06:59 Intake Total 1999 1764 960 Output Total 1100 Balance 1999 664 960 Weight 94.347 kg 95.2 kg General appearance: PRESENT: no acute distress Eye exam: PRESENT: PERRLA Respiratory exam: PRESENT: clear to auscultation loki Cardiovascular exam: PRESENT: +S1, +S2 GI/Abdominal exam: PRESENT: soft Neurological exam: PRESENT: alert Results Laboratory Results: 05/10/19 08:20 05/10/19 08:20 05/11/19 04:21 Total Bilirubin 0.4 AST 10 L Alkaline Phosphatase 50 Total Protein 5.0 L Albumin 2.1 L 05/09/19 15:35 Clean Catch Midstream Urine Culture - Final Escherichia Coli 05/09/19 05/09/19 05/09/19 10:38 19:59 19:59 Creatine Kinase 21 L CK-MB (CK-2) 1.05 Troponin I < 0.012 < 0.012 05/10/19 05/10/19 05/10/19 02:32 02:32 08:20 Creatine Kinase 25 L 44 CK-MB (CK-2) 1.15 Troponin I < 0.012 05/10/19 08:20 Creatine Kinase CK-MB (CK-2) 1.61 Troponin I 0.012 Impressions: KUB X-Ray 05/09/19 11:21 IMPRESSION: 1. NO RADIOGRAPHIC EVIDENCE FOR ACUTE ABDOMINAL DISEASE. 2. Compression deformity involving the T12 vertebra, age is indeterminate. 3. Additional findings as above. Assessment & Plan - Diagnosis (1) Dehydration Is this a current diagnosis for this admission?: Yes Plan: Continue fluid therapy (2) Hypotension Qualifiers: Hypotension type: unspecified hypotension type Qualified Code(s): I95.9 - Hypotension, unspecified Is this a current diagnosis for this admission?: Yes (3) Multiple myeloma Qualifiers: Multiple myeloma remission status: not in remission Qualified Code(s): C90.00 - Multiple myeloma not having achieved remission Is this a current diagnosis for this admission?: Yes (4) Right kidney mass Is this a current diagnosis for this admission?: Yes (5) Chemotherapy-induced thrombocytopenia Is this a current diagnosis for this admission?: Yes Plan: No indication for platelet transfusion (6) E. coli UTI Is this a current diagnosis for this admission?: Yes Plan: Start Macrobid - Time Time Spent with patient: 35 or more minutes
[2019-05-11 15:14] LABS: ALBUMIN 2.3 g/dL (3.5-5.0); ALKALINE PHOSPHATASE 56 U/L (38-126); ANION GAP 8 (5-19); ASPARTATE AMINO TRANSFERASE 12 U/L (14-36); BILIRUBIN,DIRECT 0.2 mg/dL (0.0-0.4); BILIRUBIN,TOTAL 0.5 mg/dL (0.2-1.3); BLOOD UREA NITROGEN 49 mg/dL (7-20); CARBON DIOXIDE 22 mmol/L (22-30); CHLORIDE 109 mmol/L (98-107); GLUCOSE 114 mg/dL (75-110); POTASSIUM 3.5 mmol/L (3.6-5.0); TOTAL PROTEIN 5.4 g/dL (6.3-8.2)
[2019-05-11 15:22] LABS: CALCIUM 6.6 mg/dL (8.4-10.2)
[2019-05-11 17:14] LABS: HEMATOCRIT 24.6 % (36.0-47.0); HEMOGLOBIN 8.2 g/dL (12.0-15.5); MEAN CORPUSCULAR HEMOGLOBIN 28.1 pg (27.0-33.4); MEAN CORPUSCULAR HGB CONC 33.5 g/dL (32.0-36.0); MEAN CORPUSCULAR VOLUME 84 fl (80-97); RED BLOOD COUNT 2.93 10^6/uL (3.72-5.28); RED CELL DISTRIBUTION WIDTH 18.3 % (11.5-14.0); WHITE BLOOD COUNT 8.2 10^3/uL (4.0-10.5)
[2019-05-11] MEDS: NITROFURANTOIN MONOHYD/M-CRYST 100 MG CAPSULE PO SCH (17:18)
[2019-05-11 17:48] LABS: PLATELET COUNT 51 10^3/uL (150-450)
[2019-05-11 17:50] LABS: ABSOLUTE LYMPHOCYTES# (MANUAL) 0.6 10^3/uL (0.5-4.7); ABSOLUTE MONOCYTES # (MANUAL) 0.4 10^3/uL (0.1-1.4); BASOPHILS % (MANUAL) 0 % (0-2); EOSINOPHILS % (MANUAL) 0 % (0-6); LYMPHOCYTES % (MANUAL) 7 % (13-45); MONOCYTES % (MANUAL) 5 % (3-13); NUCLEATED RED BLOOD CELLS 1 /100 WBC (0); SEGMENTED NEUTROPHILS % (MAN) 88 % (42-78); TOTAL CELLS COUNTED 100
[2019-05-11 17:52] LABS: ANISOCYTOSIS 1+; OVALOCYTES SLIGHT; PLATELET COMMENT DECREASED; POIKILOCYTOSIS SLIGHT
[2019-05-12 04:42] LABS: ALBUMIN 2.3 g/dL (3.5-5.0); ALKALINE PHOSPHATASE 55 U/L (38-126); ASPARTATE AMINO TRANSFERASE 12 U/L (14-36); BILIRUBIN,DIRECT 0.3 mg/dL (0.0-0.4); BILIRUBIN,TOTAL 0.5 mg/dL (0.2-1.3); TOTAL PROTEIN 5.3 g/dL (6.3-8.2)
[2019-05-12] MEDS: HEPARIN SOD (PORCINE) 5,000 UNIT/ML 1 ML VIAL SUBCUT SCH ×3 (05:49→22:13)
[2019-05-12] MEDS: NITROFURANTOIN MONOHYD/M-CRYST 100 MG CAPSULE PO SCH ×2 (05:50→18:12)
[2019-05-12 08:57] LABS: HEMOGLOBIN 8.2 g/dL (12.0-15.5); MEAN CORPUSCULAR VOLUME 85 fl (80-97); RED BLOOD COUNT 2.94 10^6/uL (3.72-5.28); RED CELL DISTRIBUTION WIDTH 18.3 % (11.5-14.0); WHITE BLOOD COUNT 8.8 10^3/uL (4.0-10.5)
[2019-05-12 08:58] LABS: PLATELET COUNT 60 10^3/uL (150-450)
[2019-05-12 09:08] LABS: ABSOLUTE LYMPHOCYTES# (MANUAL) 0.3 10^3/uL (0.5-4.7); ABSOLUTE MONOCYTES # (MANUAL) 0.5 10^3/uL (0.1-1.4); BAND NEUTROPHILS % (MANUAL) 1 % (3-5); BASOPHILS % (MANUAL) 0 % (0-2); EOSINOPHILS % (MANUAL) 1 % (0-6); LYMPHOCYTES % (MANUAL) 3 % (13-45); MONOCYTES % (MANUAL) 6 % (3-13); SEGMENTED NEUTROPHILS % (MAN) 89 % (42-78); TOTAL CELLS COUNTED 100
[2019-05-12 09:09] LABS: ANISOCYTOSIS 1+; PLATELET COMMENT DECREASED
[2019-05-12 09:25] LABS: BLOOD UREA NITROGEN 42 mg/dL (7-20); CALCIUM 7.1 mg/dL (8.4-10.2); CHLORIDE 117 mmol/L (98-107); GLUCOSE 113 mg/dL (75-110); POTASSIUM 3.6 mmol/L (3.6-5.0)
[2019-05-12 09:26] LABS: ANION GAP 9 (5-19); CARBON DIOXIDE 18 mmol/L (22-30)
[2019-05-12] MEDS: NORMAL SALINE 1000 ML 1,000 ML IV PRN (09:58)
--- NOTE | 2019-05-12 20:58 | PDOC PROGRESS REPORT ---
Subjective Progress Note for:: 05/12/19 Subjective:: Patient continues to be very fatigued and weak, she will continue present treatment will hopefully discharge home tomorrow Reason For Visit: HYPOTENSION,ACUTE KIDNEY INJURY,DEHYDRATION Physical Exam Vital Signs: Temp Pulse Resp BP Pulse Ox 98.4 F 76 16 142/73 H 98 05/12/19 19:00 05/12/19 19:00 05/12/19 19:00 05/12/19 19:00 05/12/19 19:00 Intake & Output 05/11/19 05/12/19 05/13/19 06:59 06:59 06:59 Intake Total 1764 2734 1080 Output Total 1100 Balance 664 2734 1080 Weight 95.2 kg 97.3 kg General appearance: PRESENT: no acute distress Eye exam: PRESENT: PERRLA Respiratory exam: PRESENT: clear to auscultation loki Cardiovascular exam: PRESENT: +S1, +S2 GI/Abdominal exam: PRESENT: soft Neurological exam: PRESENT: alert, CN II-XII grossly intact Results Laboratory Results: 05/12/19 03:45 05/12/19 03:45 05/12/19 05/12/19 03:45 03:45 WBC 8.8 RBC 2.94 L Hgb 8.2 L Hct 25.0 L MCV 85 MCH 28.0 MCHC 33.0 RDW 18.3 H Plt Count 60 L Seg Neutrophils % Not Reportable Sodium 143.8 Potassium 3.6 Chloride 117 H Carbon Dioxide 18 L Anion Gap 9 BUN 42 H Creatinine 1.23 Est GFR ( Amer) 51 L Glucose 113 H Calcium 7.1 L Total Bilirubin 0.5 AST 12 L Alkaline Phosphatase 55 Total Protein 5.3 L Albumin 2.3 L 05/09/19 05/09/19 05/09/19 10:38 19:59 19:59 Creatine Kinase 21 L CK-MB (CK-2) 1.05 Troponin I < 0.012 < 0.012 05/10/19 05/10/19 05/10/19 02:32 02:32 08:20 Creatine Kinase 25 L 44 CK-MB (CK-2) 1.15 Troponin I < 0.012 05/10/19 08:20 Creatine Kinase CK-MB (CK-2) 1.61 Troponin I 0.012 Impressions: KUB X-Ray 05/09/19 11:21 IMPRESSION: 1. NO RADIOGRAPHIC EVIDENCE FOR ACUTE ABDOMINAL DISEASE. 2. Compression deformity involving the T12 vertebra, age is indeterminate. 3. Additional findings as above. Assessment & Plan - Diagnosis (1) Dehydration Is this a current diagnosis for this admission?: Yes (2) Hypotension Qualifiers: Hypotension type: unspecified hypotension type Qualified Code(s): I95.9 - Hypotension, unspecified Is this a current diagnosis for this admission?: Yes (3) Multiple myeloma Qualifiers: Multiple myeloma remission status: not in remission Qualified Code(s): C90.00 - Multiple myeloma not having achieved remission Is this a current diagnosis for this admission?: Yes (4) Right kidney mass Is this a current diagnosis for this admission?: Yes (5) Chemotherapy-induced thrombocytopenia Is this a current diagnosis for this admission?: Yes (6) E. coli UTI Is this a current diagnosis for this admission?: Yes Plan: Continue Macrobid - Time Time Spent with patient: 25-34 minutes
[2019-05-13] MEDS: HEPARIN SOD (PORCINE) 5,000 UNIT/ML 1 ML VIAL SUBCUT SCH ×3 (05:11→21:26)
[2019-05-13] MEDS: NORMAL SALINE 1000 ML 1,000 ML IV PRN ×2 (05:40→14:46)
[2019-05-13] MEDS: NITROFURANTOIN MONOHYD/M-CRYST 100 MG CAPSULE PO SCH ×2 (05:40→17:52)
[2019-05-13 09:58] LABS: HEMATOCRIT 23.8 % (36.0-47.0); MEAN CORPUSCULAR HEMOGLOBIN 28.2 pg (27.0-33.4); MEAN CORPUSCULAR HGB CONC 33.2 g/dL (32.0-36.0); MEAN CORPUSCULAR VOLUME 85 fl (80-97); RED CELL DISTRIBUTION WIDTH 18.3 % (11.5-14.0); WHITE BLOOD COUNT 9.5 10^3/uL (4.0-10.5)
[2019-05-13 10:20] LABS: ALBUMIN 2.3 g/dL (3.5-5.0); ALKALINE PHOSPHATASE 58 U/L (38-126); ANION GAP 6 (5-19); ASPARTATE AMINO TRANSFERASE 14 U/L (14-36); BILIRUBIN,DIRECT 0.2 mg/dL (0.0-0.4); BILIRUBIN,TOTAL 0.4 mg/dL (0.2-1.3); BLOOD UREA NITROGEN 16 mg/dL (7-20); CARBON DIOXIDE 21 mmol/L (22-30); CHLORIDE 108 mmol/L (98-107); GLUCOSE 122 mg/dL (75-110); POTASSIUM 3.6 mmol/L (3.6-5.0); TOTAL PROTEIN 5.3 g/dL (6.3-8.2)
[2019-05-13 10:22] LABS: ABSOLUTE MONOCYTES # (MANUAL) 0.9 10^3/uL (0.1-1.4); BASOPHILS % (MANUAL) 0 % (0-2); EOSINOPHILS % (MANUAL) 0 % (0-6); LYMPHOCYTES % (MANUAL) 0 % (13-45); MONOCYTES % (MANUAL) 9 % (3-13); SEGMENTED NEUTROPHILS % (MAN) 91 % (42-78); TOTAL CELLS COUNTED 100
[2019-05-13 10:33] LABS: CALCIUM 6.3 mg/dL (8.4-10.2)
[2019-05-13 10:36] LABS: ANISOCYTOSIS 1+; PLATELET COMMENT DECREASED
[2019-05-13 10:45] LABS: HEMOGLOBIN 7.9 g/dL (12.0-15.5); PLATELET COUNT 98 10^3/uL (150-450)
--- NOTE | 2019-05-13 20:35 | PDOC DISCHARGE SUMMARY ---
Impression - Admit/DC Date/PCP Admission Date/Primary Care Provider: 05/09/19 17:25 JUAN CALDERON MD Discharge Date: 05/13/19 - Discharge Diagnosis (1) Dehydration Is this a current diagnosis for this admission?: Yes (2) Hypotension Is this a current diagnosis for this admission?: Yes (3) Multiple myeloma Is this a current diagnosis for this admission?: Yes (4) Right kidney mass Is this a current diagnosis for this admission?: Yes (5) Chemotherapy-induced thrombocytopenia Is this a current diagnosis for this admission?: Yes (6) E. coli UTI Is this a current diagnosis for this admission?: Yes (7) Anemia Is this a current diagnosis for this admission?: Yes - Additional Information Resuscitation Status: Full Code Referrals: JUAN CALDERON MD [Primary Care Provider] - Follow up as needed Prescriptions: Nitrofurantoin Monohyd/M-Cryst [Macrobid 100 mg Capsule] 100 mg PO Q12A #14 capsule Home Medications: Acyclovir [Acyclovir 400 mg Tablet] 400 mg PO BID 05/09/19 Carvedilol [Coreg 25 mg Tablet] 25 mg PO Q12 05/09/19 Cetirizine HCl [Zyrtec 10 mg Tablet] 10 mg PO DAILY 05/09/19 Clopidogrel Bisulfate [Plavix 75 mg Tablet] 75 mg PO DAILY 05/09/19 Ergocalciferol (Vitamin D2) [Drisdol 50,000 unit (1.25MG) Capsule] 50,000 unit PO . AND 05/09/19 Ondansetron HCl [Zofran 8 mg Tablet] 8 mg PO Q8HP PRN 05/09/19 Oxycodone HCl/Acetaminophen [Percocet 5-325 mg Tablet] 1 tab PO Q4HP PRN 05/09/19 Potassium Chloride [Klor-Con M10] 20 meq PO DAILY 05/09/19 Pravastatin Sodium [Pravachol] 40 mg PO QHS 05/09/19 Promethazine HCl [Phenergan 25 mg Tablet] 25 mg PO Q6HP PRN 05/09/19 Nitrofurantoin Monohyd/M-Cryst [Macrobid 100 mg Capsule] 100 mg PO Q12A #14 capsule 05/13/19 History of Present Illiness History of Present Illness: REGULO HINES is a 78 year old female,She was brought to the emergency room by her sister for evaluation of a fall, she stated that she also fell yesterday. She was recently admitted and discharged from this hospital about a month ago wh en she was diagnosed with multiple myeloma and also a renal mass, she is presently undergoing chemotherapy by the oncologist Dr. Craven. She was supposed to have chemotherapy today but when she fell due to extreme fatigueThe sister called EMS to I have transferred to the hospital for evaluation. In the emergency room she was evaluated, the blood pressure recorded was in the low 90s systolic, she was also found to have azotemia, the BUN was elevated at 73 when compared to discharge BUN 25, The serum creatinine is 1.4 which is the same from discharge. She is presently on active therapy for multiple myeloma, she has diminished intake though sister said she drinks water quite well. She was admitted for observation essentially for rehydration, hopefully discharge in 24 hours Hospital Course Hospital Course: Patient was admitted for the management of hypotension, acute kidney injury, E. coli UTI, chemotherapy induced thrombocytopenia, anemia due to hemodilution. She was treated with IV fluid therapy with Macrobid for E. coli UTI, on admission the blood pressure recorded was quite low, the medication for the control blood pressure was held, she was treated vigorously with IV fluid with religious of volume and blood pressure. The urine culture grew E. coli, pansensitive to most antibiotic, she was treated with p.o. Macrobid. She also had thrombocytopenia on admission this was felt to be related to chemotherapy, it improved subsequently in the hospital she also had anemia due to hemodilution, there was no evidence of GI bleed to hospital stay. Patient regained some improved energy and stability. Physical Exam Vital Signs: Temp Pulse Resp BP Pulse Ox 98.5 F 81 15 132/58 H 98 05/13/19 19:48 05/13/19 19:48 05/13/19 19:48 05/13/19 19:48 05/13/19 19:48 Intake & Output 05/12/19 05/13/19 05/14/19 06:59 06:59 06:59 Intake Total 2734 2400 1550 Balance 2734 2400 1550 Weight 97.3 kg 97.8 kg General appearance: PRESENT: no acute distress Eye exam: PRESENT: PERRLA Respiratory exam: PRESENT: clear to auscultation loki Cardiovascular exam: PRESENT: +S1, +S2 GI/Abdominal exam: PRESENT: soft Neurological exam: PRESENT: alert Results Laboratory Results: WBC 9.5 10^3/uL (4.0-10.5) 05/13/19 09:12 RBC 2.80 10^6/uL (3.72-5.28) L 05/13/19 09:12 Hgb 7.9 g/dL (12.0-15.5) L 05/13/19 09:12 Hct 23.8 % (36.0-47.0) L 05/13/19 09:12 MCV 85 fl (80-97) 05/13/19 09:12 MCH 28.2 pg (27.0-33.4) 05/13/19 09:12 MCHC 33.2 g/dL (32.0-36.0) 05/13/19 09:12 RDW 18.3 % (11.5-14.0) H 05/13/19 09:12 Plt Count 98 10^3/uL (150-450) L 05/13/19 09:12 Lymph % (Auto) Not Reportable 05/13/19 09:12 [place] % (Auto) Not Reportable 05/13/19 09:12 Eos % (Auto) Not Reportable 05/13/19 09:12 Baso % (Auto) Not Reportable 05/13/19 09:12 Absolute Neuts (auto) Not Reportable 05/13/19 09:12 Absolute Lymphs (auto) Not Reportable 05/13/19 09:12 Absolute Monos (auto) Not Reportable 05/13/19 09:12 Absolute Eos (auto) Not Reportable 05/13/19 09:12 Absolute Basos (auto) Not Reportable 05/13/19 09:12 Total Counted 100 05/13/19 09:12 Seg Neutrophils % Not Reportable 05/13/19 09:12 Seg Neuts % (Manual) 91 % (42-78) H 05/13/19 09:12 Band Neutrophils % 1 % (3-5) L 05/12/19 03:45 Lymphocytes % (Manual) 0 % (13-45) L 05/13/19 09:12 Monocytes % (Manual) 9 % (3-13) 05/13/19 09:12 Eosinophils % (Manual) 0 % (0-6) 05/13/19 09:12 Basophils % (Manual) 0 % (0-2) 05/13/19 09:12 Metamyelocytes % 1 % (0) H 05/09/19 12:10 Abs Neuts (Manual) 8.6 10^3/uL (1.7-8.2) H 05/13/19 09:12 Abs Lymphs (Manual) 0.0 10^3/uL (0.5-4.7) L 05/13/19 09:12 Abs Monocytes (Manual) 0.9 10^3/uL (0.1-1.4) 05/13/19 09:12 Absolute Eos (Manual) 0.0 10^3/uL (0.0-0.6) 05/13/19 09:12 Abs Basophils (Manual) 0.0 10^3/uL (0.0-0.2) 05/13/19 09:12 Nucleated RBCs 1 /100 WBC (0) 05/11/19 16:52 WBC Morphology Comment 05/11/19 16:52 Platelet Estimate Cancelled 05/11/19 14:42 Platelet Comment DECREASED 05/13/19 09:12 Hypochromasia SLIGHT 05/10/19 02:32 Poikilocytosis SLIGHT 05/11/19 16:52 Anisocytosis 1+ 05/13/19 09:12 Ovalocytes SLIGHT 05/11/19 16:52 Sodium 135.0 mmol/L (137-145) L 05/13/19 09:12 Potassium 3.6 mmol/L (3.6-5.0) 05/13/19 09:12 Chloride 108 mmol/L (98-107) H 05/13/19 09:12 Carbon Dioxide 21 mmol/L (22-30) L 05/13/19 09:12 Anion Gap 6 (5-19) 05/13/19 09:12 BUN 16 mg/dL (7-20) 05/13/19 09:12 Creatinine 0.82 mg/dL (0.52-1.25) 05/13/19 09:12 Est GFR ( Amer) > 60 (>60) 05/13/19 09:12 Est GFR (MDRD) Non-Af > 60 (>60) 05/13/19 09:12 Glucose 122 mg/dL (75-110) H 05/13/19 09:12 Calcium 6.3 mg/dL (8.4-10.2) L* 05/13/19 09:12 Magnesium 2.4 mg/dL (1.6-2.3) H 05/09/19 10:38 Total Bilirubin 0.4 mg/dL (0.2-1.3) 05/13/19 09:12 Direct Bilirubin 0.2 mg/dL (0.0-0.4) 05/13/19 09:12 Neonat Total Bilirubin Not Reportable 05/13/19 09:12 Neonat Direct Bilirubin Not Reportable 05/13/19 09:12 Neonat Indirect Bili Not Reportable 05/13/19 09:12 AST 14 U/L (14-36) 05/13/19 09:12 ALT 14 U/L (<35) 05/13/19 09:12 Alkaline Phosphatase 58 U/L (38-126) 05/13/19 09:12 Creatine Kinase 44 U/L (30-135) 05/10/19 08:20 CK-MB (CK-2) 1.61 ng/mL (<4.55) 05/10/19 08:20 Troponin I 0.012 ng/mL 05/10/19 08:20 Total Protein 5.3 g/dL (6.3-8.2) L 05/13/19 09:12 Albumin 2.3 g/dL (3.5-5.0) L 05/13/19 09:12 TSH 0.08 uIU/mL (0.47-4.68) L 05/09/19 10:38 Free T4 1.37 ng/dL (0.78-2.19) 05/09/19 10:38 Urine Color YELLOW 05/09/19 15:35 Urine Appearance CLOUDY 05/09/19 15:35 Urine pH 5.0 (5.0-9.0) 05/09/19 15:35 Ur Specific [place] 1.015 05/09/19 15:35 Urine Protein NEGATIVE mg/dL (NEGATIVE) 05/09/19 15:35 Urine Glucose (UA) NEGATIVE mg/dL (NEGATIVE) 05/09/19 15:35 Urine Ketones NEGATIVE mg/dL (NEGATIVE) 05/09/19 15:35 Urine Blood LARGE (NEGATIVE) H 05/09/19 15:35 Urine Nitrite NEGATIVE (NEGATIVE) 05/09/19 15:35 Urine Bilirubin NEGATIVE (NEGATIVE) 05/09/19 15:35 Urine Urobilinogen NEGATIVE mg/dL (<2.0) 05/09/19 15:35 Ur Leukocyte Esterase MODERATE (NEGATIVE) H 05/09/19 15:35 Urine WBC (Auto) 12 /HPF 05/09/19 15:35 Urine RBC (Auto) 58 /HPF 05/09/19 15:35 U Hyaline Cast (Auto) 10 /LPF 05/09/19 15:35 Urine Bacteria (Auto) 2+ /HPF 05/09/19 15:35 Squamous Epi Cells Auto 11 /HPF 05/09/19 15:35 Amorphous Sediment Auto TRACE /HPF 05/09/19 15:35 Urine Mucus (Auto) RARE /LPF 05/09/19 15:35 Urine Ascorbic Acid NEGATIVE (NEGATIVE) 05/09/19 15:35 Slides for Path Review Cancelled 05/11/19 14:42 05/09/19 05/09/19 05/10/19 10:38 19:59 02:32 CK-MB (CK-2) 1.05 1.15 Troponin I < 0.012 < 0.012 < 0.012 05/10/19 08:20 CK-MB (CK-2) 1.61 Troponin I 0.012 Impressions: KUB X-Ray 05/09/19 11:21 IMPRESSION: 1. NO RADIOGRAPHIC EVIDENCE FOR ACUTE ABDOMINAL DISEASE. 2. Compression deformity involving the T12 vertebra, age is indeterminate. 3. Additional findings as above. Stroke Is this a Stroke Patient?: No Stroke Pt being discharged on Anti-thrombolytic therapy?: No Reason(s) for not prescribing Anti-thrombolytic therapy:: Not indicated Stroke Pt being discharged on Anti-coagulation therapy?: No Reason(s) for not prescribing Anti-coagulation therapy:: Not indicated Stroke Pt being discharged on Statins?: No Reason(s) for not prescribing Statins therapy:: Not indicated Acute Heart Failure - Is this a Heart Failure Patient?: No Follow-up Appointment scheduled within 7 days?: Yes
[2019-05-14] MEDS: NITROFURANTOIN MONOHYD/M-CRYST 100 MG CAPSULE PO SCH (05:52)
[2019-05-14] MEDS: HEPARIN SOD (PORCINE) 5,000 UNIT/ML 1 ML VIAL SUBCUT SCH (05:52)
[2019-05-14 09:11] VITALS: BP 132/58
== END 2019-05-14 09:50 | disposition home or self-care (01) ==
LOC: ER 10:20 → INTOOBSV 17:25 → EH 17:25 → 5 22:48
PROVIDERS: ADMIT Internal Medicine; ATTEND Internal Medicine
DX: N39.0 Urinary tract infection, site not specified (principal); E86.0 Dehydration; I95.9 Hypotension, unspecified; C90.00 Multiple myeloma not having achieved remission; N28.89 Other specified disorders of kidney and ureter; D69.59 Other secondary thrombocytopenia; T45.1X5A Adverse effect of antineoplastic and immunosuppressive drugs, initial encounter; B96.20 Unspecified Escherichia coli [E. coli] as the cause of diseases classified elsewhere; Z79.02 Long term (current) use of antithrombotics/antiplatelets; N17.9 Acute kidney failure, unspecified; I25.10 Atherosclerotic heart disease of native coronary artery without angina pectoris; E78.5 Hyperlipidemia, unspecified; I10 Essential (primary) hypertension; M19.90 Unspecified osteoarthritis, unspecified site; F32.9 Major depressive disorder, single episode, unspecified; M25.562 Pain in left knee; W19.XXXA Unspecified fall, initial encounter; Y92.012 Bathroom of single-family (private) house as the place of occurrence of the external cause; E66.01 Morbid (severe) obesity due to excess calories; D51.9 Vitamin B12 deficiency anemia, unspecified; Z23 Encounter for immunization
CPT/HCPCS: 93005; 99291; 96360; 96361; 36415 ×5; 87086; 84439; 82553 ×2; 82550 ×2; 83735; 84443; 85025 ×5; 87070 ×3; 87088; 80076 ×2; 80053 ×2; 81001; 84484 ×2; 87186; 74018; 90686; 93010; 97116; 97163; G0378 ×5; J7030 ×5; J7120; A9270 ×3; J8499

== ENCOUNTER 2019-05-30 23:24 | Emergency (ER) | payer MEDICARE ==
[2019-05-31] MEDS ORDERED: PROMETHAZINE HCL INJ 25 MG/1 ML VIAL IV ONE (00:56)
[2019-05-31] MEDS ORDERED: NORMAL SALINE 500 ML IV ONE (00:56)
[2019-05-31] MEDS ORDERED: DIPHENOXYLATE HCL/ATROP SULF 2.5-0.025 MG TABLET PO ONE (00:56)
--- NOTE | 2019-05-31 01:01 | ER Document Report ---
ED General - General Chief Complaint: Nausea/Vomiting Stated Complaint: VOMITING Time Seen by Provider: 05/31/19 00:21 Primary Care Provider: JUAN CALDERON MD [Primary Care Provider] - Follow up as needed TRAVEL OUTSIDE OF THE [place] IN LAST 30 DAYS: No - HPI Notes: Patient is a 78-year-old female with a history of multiple myeloma, currently on chemotherapy, who presents emergency department for evaluation of nausea, vomiting, diarrhea. She received chemotherapy earlier today. She had more dry heaves and anything else in regards to vomiting, but multiple episodes of diarrhea. She said no fevers. She is still urinating. She denies any pain of any sort. She has been trying colestipol at home without significantly from her diarrhea. - Related Data Allergies/Adverse Reactions: No Known Allergies Allergy (Verified 09/03/17 07:26) Home Medications: Reviewed, please see note Past Medical History - General Information source: Patient, Relative - Social History Smoking Status: Never Smoker Family History: Reviewed & Not Pertinent Patient has suicidal ideation: No Patient has homicidal ideation: No - Past Medical History Cardiac Medical History: Reports: Hx Coronary Artery Disease, Hx Hypercholesterolemia, Hx Hypertension Denies: Hx Heart Attack Pulmonary Medical History: Denies: Hx Asthma, Hx Bronchitis, Hx COPD, Hx Pneumonia Neurological Medical History: Denies: Hx Cerebrovascular Accident, Hx Seizures Malignancy Medical History: Reports: Other - Multiple myeloma Musculoskeletal Medical History: Reports Hx Arthritis Psychiatric Medical History: Reports: Hx Depression Past Surgical History: Reports: Hx Cholecystectomy, Hx Hysterectomy. Denies: Hx Pacemaker - Immunizations Hx Diphtheria, Pertussis, Tetanus Vaccination: No Hx Pneumococcal Vaccination: 05/03/15 Review of Systems - Review of Systems Constitutional: See HPI EENT: No symptoms reported Respiratory: No symptoms reported Gastrointestinal: See HPI Genitourinary: No symptoms reported Musculoskeletal: No symptoms reported Skin: No symptoms reported Neurological/Psychological: No symptoms reported Physical Exam - Vital signs Vitals: Resp Pulse Ox 20 100 05/30/19 23:51 05/30/19 23:51 - Notes Notes: This is a pleasant 78-year-old female who appears stated age, no acute distress. Vital signs reviewed, please refer to chart. Head is normocephalic, atraumatic. Pupils equal round, reactive to light. Neck is supple without meningismus. Heart is regular rate and rhythm. Lungs are clear to auscultation bilaterally. Abdomen is soft, nontender, normoactive bowel sounds throughout. Extremities without cyanosis, clubbing. Posterior calves are nontender. Peripheral pulses are equal. Skin is warm and dry. Patient is awake, alert, neurological exam is nonfocal. Course - Re-evaluation Re-evalutation: 05/31/19 02:55 Patient presents emergency department for evaluation of chemotherapy associated nausea and diarrhea. She had one episode of diarrhea here, this was prior to being given Lomotil. She was given IV fluids. She was given a small dose of Phenergan, as her QT interval was not prolonged in the past. Laboratory investigations failed to reveal any significant light abnormalities or dehydration. She is not neutropenic. Patient is feeling improved here. She already has medication for diarrhea and nausea at home. She is to follow-up with primary care and oncology this week, return to the ED with worsening. 05/31/19 05:16 Urinalysis unremarkable, patient will be discharged. - Vital Signs Vital signs: Temp Pulse Resp BP Pulse Ox 98.1 F 97 20 124/73 98 05/31/19 04:42 05/31/19 04:42 05/31/19 04:42 05/31/19 03:01 05/31/19 04:42 - Laboratory Result Diagrams: 05/31/19 00:50 05/31/19 00:50 Laboratory results interpreted by me: 05/31/19 05/31/19 05/31/19 00:50 00:50 04:05 RBC 3.29 L Hgb 8.9 L Hct 28.0 L MCHC 31.9 L RDW 19.1 H Lymph % (Auto) 5.4 L Absolute Lymphs (auto) 0.4 L Seg Neutrophils % 87.9 H Chloride 111 H Carbon Dioxide 20 L Est GFR ( Amer) 50 L Est GFR (MDRD) Non-Af 41 L Calcium 7.2 L AST 13 L Alkaline Phosphatase 222 H Total Protein 6.0 L Albumin 2.9 L Urine Protein 30 H Urine Glucose (UA) 50 H Urine Bilirubin SMALL H Discharge - Discharge Clinical Impression: Dehydration, Nausea Diarrhea Qualifiers: Diarrhea type: unspecified type Qualified Code(s): R19.7 - Diarrhea, unspecified Condition: Stable Disposition: HOME, SELF-CARE Instructions: Diarrhea, Nonspecific ([facility]), Dehydration ([facility]) Additional Instructions: Follow-up with Dr. Calderon this week. Small, frequent sips of fluids. Colest ipol as needed for diarrhea. Return to the emergency department with worsening or new concerning symptoms of any sort. Referrals: JUAN CALDERON MD [Primary Care Provider] - Follow up as needed
[2019-05-31 01:06] LABS: ABSOLUTE BASOPHILS # (AUTO) 0.1 10^3/uL (0.0-0.2); ABSOLUTE EOSINOPHILS # (AUTO) 0.1 10^3/uL (0.0-0.6); ABSOLUTE LYMPHOCYTES (AUTO) 0.4 10^3/uL (0.5-4.7); ABSOLUTE MONOCYTES (AUTO) 0.3 10^3/uL (0.1-1.4); ABSOLUTE NEUT (AUTO) 6.9 10^3/uL (1.7-8.2); BASOPHILS % (AUTO) 1.1 % (0-2); EOSINOPHILS % (AUTO) 1.6 % (0-6); HEMOGLOBIN 8.9 g/dL (12.0-15.5); LYMPHOCYTES % (AUTO) 5.4 % (13-45); MEAN CORPUSCULAR HEMOGLOBIN 27.1 pg (27.0-33.4); MEAN CORPUSCULAR HGB CONC 31.9 g/dL (32.0-36.0); MEAN CORPUSCULAR VOLUME 85 fl (80-97); PLATELET COUNT 328 10^3/uL (150-450); RED BLOOD COUNT 3.29 10^6/uL (3.72-5.28); RED CELL DISTRIBUTION WIDTH 19.1 % (11.5-14.0); SEGMENTED NEUTROPHILS % (AUTO) 87.9 % (42-78); TOTAL CELLS COUNTED % (AUTO) 100 %; WHITE BLOOD COUNT 7.8 10^3/uL (4.0-10.5)
[2019-05-31 01:35] LABS: ALBUMIN 2.9 g/dL (3.5-5.0); ALKALINE PHOSPHATASE 222 U/L (38-126); ANION GAP 10 (5-19); ASPARTATE AMINO TRANSFERASE 13 U/L (14-36); BILIRUBIN,DIRECT 0.2 mg/dL (0.0-0.4); BILIRUBIN,TOTAL 0.4 mg/dL (0.2-1.3); BLOOD UREA NITROGEN 9 mg/dL (7-20); CALCIUM 7.2 mg/dL (8.4-10.2); CARBON DIOXIDE 20 mmol/L (22-30); CHLORIDE 111 mmol/L (98-107); GLUCOSE 86 mg/dL (75-110); POTASSIUM 3.7 mmol/L (3.6-5.0)
[2019-05-31 05:12] LABS: APPEARANCE,URINE HAZY; BILIRUBIN,URINE SMALL (NEGATIVE); COLOR,URINE AMBER; GLUCOSE, URINE 50 mg/dL (NEGATIVE); KETONES,URINE NEGATIVE (NEGATIVE); LEUKOCYTE ESTERASE,URINE NEGATIVE (NEGATIVE); NITRITE,URINE NEGATIVE (NEGATIVE); PROTEIN,URINE 30 mg/dL (NEGATIVE); UROBILINOGEN,URINE NEGATIVE mg/dL (<2.0)
[2019-05-31 05:14] LABS: URINE SPECIFIC GRAVITY 1.015
[2019-05-31 05:54] VITALS: BP 145/58
== END 2019-05-31 06:13 | disposition home or self-care (01) ==
LOC: ER 23:24
DX: R11.2 Nausea with vomiting, unspecified (principal); R19.7 Diarrhea, unspecified; T45.1X5A Adverse effect of antineoplastic and immunosuppressive drugs, initial encounter; E86.0 Dehydration; C90.00 Multiple myeloma not having achieved remission; Z79.899 Other long term (current) drug therapy; I25.10 Atherosclerotic heart disease of native coronary artery without angina pectoris; I10 Essential (primary) hypertension
CPT/HCPCS: 99283; 96361; 96374; 36415; 85025; 80053; 81001; A9270; J2550; J7040; J3490

== ENCOUNTER 2019-06-10 07:19 | Inpatient (IN) | payer MEDICARE ==
[2019-06-10] MEDS ORDERED: MORPHINE SULFATE 10 MG/ML INJ IV ONE (08:18)
[2019-06-10 08:36] LABS: HEMATOCRIT 27.3 % (36.0-47.0); HEMOGLOBIN 8.7 g/dL (12.0-15.5); MEAN CORPUSCULAR HGB CONC 31.9 g/dL (32.0-36.0); MEAN CORPUSCULAR VOLUME 85 fl (80-97); PLATELET COUNT 328 10^3/uL (150-450); RED BLOOD COUNT 3.24 10^6/uL (3.72-5.28); WHITE BLOOD COUNT 12.2 10^3/uL (4.0-10.5)
[2019-06-10 08:49] LABS: ANION GAP 7 (5-19); BLOOD UREA NITROGEN 14 mg/dL (7-20); CARBON DIOXIDE 25 mmol/L (22-30); CHLORIDE 110 mmol/L (98-107); GLUCOSE 92 mg/dL (75-110); POTASSIUM 3.9 mmol/L (3.6-5.0)
--- NOTE | 2019-06-10 09:02 | RADIOLOGY REPORT (SQ) ---
EXAM DESCRIPTION: KNEE LEFT 3 VIEWS COMPLETED DATE/TIME: 06/10/2019 8:53 am REASON FOR STUDY: PAIN COMPARISON: None. NUMBER OF VIEWS: Four views. TECHNIQUE: AP, lateral, and sunrise patella radiographic images acquired of the left knee. LIMITATIONS: None. FINDINGS: MINERALIZATION: Normal. BONES: No acute fracture or dislocation. No worrisome bone lesions. JOINT: Joint space narrowing in all compartments most marked in the medial compartment. There is a m oderate joint effusion. SOFT TISSUES: No soft tissue swelling. No radio-opaque foreign body. OTHER: No other significant finding. IMPRESSION: Moderate joint effusion. Osteoarthritic changes as described. No displaced fracture. With the moderate joint effusion occult fracture cannot be excluded. TECHNICAL DOCUMENTATION: JOB ID: [id number] [employer]- All Rights Reserved Reading location - IP/workstation name: [email or web address]
[2019-06-10 09:06] LABS: CALCIUM 5.8 mg/dL (8.4-10.2)
[2019-06-10 09:11] LABS: ABSOLUTE MONOCYTES # (MANUAL) 1.2 10^3/uL (0.1-1.4); BASOPHILS % (MANUAL) 0 % (0-2); EOSINOPHILS % (MANUAL) 2 % (0-6); LYMPHOCYTES % (MANUAL) 0 % (13-45); MONOCYTES % (MANUAL) 10 % (3-13); SEGMENTED NEUTROPHILS % (MAN) 88 % (42-78); TOTAL CELLS COUNTED 100
[2019-06-10 09:12] LABS: ANISOCYTOSIS 2+; OVALOCYTES SLIGHT; PLATELET COMMENT ADEQUATE; POIKILOCYTOSIS SLIGHT
[2019-06-10] MEDS ORDERED: CALCIUM GLUCONATE 1000 MG/10 ML INJ IV ONE ×2 (09:15→19:15)
[2019-06-10] MEDS ORDERED: NORMAL SALINE 1000 ML 1,000 ML IV ONE (10:09)
--- NOTE | 2019-06-10 10:29 | RADIOLOGY REPORT (SQ) ---
EXAM DESCRIPTION: U/S EXTREMITY NONVASCULAR LTD COMPLETED DATE/TIME: 06/10/2019 9:30 am REASON FOR STUDY: left distal femur swelling ? abscess vs mass COMPARISON: Plain radiographs TECHNIQUE: Dynamic and static grayscale images acquired of the localized site of clinical concern an d recorded on PACS. Additional selected color Doppler and spectral images recorded. SITE OF CONCERN: Left distal femur soft tissue mass LIMITATIONS: None. FINDINGS: SKIN AND SUBCUTANEOUS TISSUES: None DEEP SOFT TISSUES/MUSCLES: Fluid collection in the joint. There is marked thickening of the synovium . Calcifications seen on the plain radiographs. Dependent debris. VASCULAR: No increased or decreased vascularity. No occlusions. OTHER: No other significant finding. IMPRESSION: Nonspecific in synovitis in joint effusion with marked synovial thickening. In the differential however is synovial sarcoma. COMMENT: Recommend MRI with contrast. TECHNICAL DOCUMENTATION: JOB ID: [id number] [employer]- All Rights Reserved Reading location - IP/workstation name: [email or web address]
[2019-06-10] MEDS: MAGNESIUM SULFATE/D5W 1 GM/100 ML RTUPB IV SCH ×2 (10:51→12:40)
--- NOTE | 2019-06-10 12:25 | ER Document Report ---
ED General - General Chief Complaint: Leg Pain Stated Complaint: LEG PAIN Time Seen by Provider: 06/10/19 08:13 TRAVEL OUTSIDE OF THE [place] IN LAST 30 DAYS: No - HPI Notes: This is a 78-year-old female who presents today with a complaint of left knee pain. Initially, patient did not give me any history to suggest trauma. However, patient's daughter later and tells me that she fell about a week ago and hurt her left knee. Daughter. also states the patient has had diarrhea for the past week. She has been unable to keep her medications down. She denies any abdominal pain. She describes her symptoms as moderate. - Related Data Allergies/Adverse Reactions: No Known Allergies Allergy (Verified 06/10/19 07:48) Home Medications: heart medication Past Medical History - Social History Smoking Status: Never Smoker Chew tobacco use (# tins/day): No Frequency of alcohol use: None Drug Abuse: None Family History: Reviewed & Not Pertinent Patient has suicidal ideation: No Patient has homicidal ideation: No - Past Medical History Cardiac Medical History: Reports: Hx Coronary Artery Disease, Hx Hypercholesterolemia, Hx Hypertension Denies: Hx Heart Attack Pulmonary Medical History: Denies: Hx Asthma, Hx Bronchitis, Hx COPD, Hx Pneumonia Neurological Medical History: Denies: Hx Cerebrovascular Accident, Hx Seizures Musculoskeletal Medical History: Reports Hx Arthritis Psychiatric Medical History: Reports: Hx Depression Past Surgical History: Reports: Hx Cholecystectomy, Hx Hysterectomy. Denies: Hx Pacemaker - Immunizations Hx Diphtheria, Pertussis, Tetanus Vaccination: No Hx Pneumococcal Vaccination: 05/03/15 Review of Systems - Review of Systems Gastrointestinal: Diarrhea. denies: Abdominal pain Musculoskeletal: Other - left knee pain -: Yes All other systems reviewed and negative Physical Exam - Vital signs Vitals: Temp Pulse Resp BP Pulse Ox 99.4 F 83 18 120/65 97 06/10/19 07:19 06/10/19 07:19 06/10/19 07:19 06/10/19 07:19 06/10/19 07:19 - General General appearance: Appears well, Alert - Respiratory Respiratory status: No respiratory distress Chest status: Nontender Breath sounds: Normal Chest palpation: Normal - Cardiovascular Rhythm: Regular Heart sounds: Normal auscultation Murmur: No - Abdominal Inspection: Normal Distension: No distension Bowel sounds: Normal Tenderness: Nontender Organomegaly: No organomegaly - Extremities Knee: Tender, Joint effusion, Other - Tenderness and swelling of the left knee. No erythema. No warmth. Normal distal neurovascular exam of the left lower extremity. - Neurological Neuro grossly intact: Yes Cognition: Normal Orientation: AAOx4 [place] Coma Scale Eye Opening: Spontaneous [place] Coma Scale Verbal: Oriented [place] Coma Scale Motor: Obeys Commands [place] Coma Scale Total: 15 Speech: Normal Motor strength normal: LUE, RUE, LLE, RLE Sensory: Normal - Psychological Associated symptoms: Normal affect, Normal mood Course - Re-evaluation Re-evalutation: 06/10/19 10:23 Differential diagnosis includes electrolyte abnormality versus dehydration versus knee contusion versus knee fracture. Septic knee is less likely given history of trauma. Doubt DVT. Will get ultrasound. 1145 Patient is doing well. She is doing better. Labs reviewed. X-ray consistent with effusion. Given history of trauma, I believe this is likely traumatic effusion. Consequently, I will not tap the knee. Patient's care discussed with Dr. Rico's nurse. Also I am describing. Will consult on the patient. Doppler ultrasounds negative for DVT. 1152 Patient's care discussed with Dr. Bennett. Will admit the patient. 06/10/19 12:26 - Vital Signs Vital signs: Temp Pulse Resp BP Pulse Ox 98.7 F 83 21 H 139/56 H 97 06/10/19 14:01 06/10/19 07:19 06/10/19 14:01 06/10/19 14:01 06/10/19 07:19 - Laboratory Result Diagrams: 06/10/19 08:08 06/10/19 08:08 Laboratory results interpreted by me: 06/10/19 06/10/19 06/10/19 08:08 08:08 08:08 WBC 12.2 H RBC 3.24 L Hgb 8.7 L Hct 27.3 L MCHC 31.9 L RDW 19.0 H Seg Neuts % (Manual) 88 H Lymphocytes % (Manual) 0 L Abs Neuts (Manual) 10.7 H Abs Lymphs (Manual) 0.0 L Chloride 110 H Calcium 5.8 L* Magnesium 0.8 L* Discharge - Discharge Clinical Impression: Hypocalcemia, Hypomagnesemia Contusion of left knee Qualifiers: Encounter type: initial encounter Qualified Code(s): S80.02XA - Contusion of left knee, initial encounter Condition: Fair Disposition: ADMITTED INPATIENT Admitting Provider: Sabrina Unit Admitted: Telemetry
--- NOTE | 2019-06-10 13:03 | XCELERA REPORT ---
[address] [facility] [address] Lower Extremity Venous Evaluation Procedure: Color flow and duplex imaging bilaterally of the veins of the lower extremities as well as the Common Femoral veins. Right Sided Venous Evaluation Normal vessel filling wall to wall, compression and augmentation as well as Colour flow down to the infrageniculate veins. Left Sided Venous Evaluation Normal vessel filling wall to wall, compression and augmentation as well as Colour flow down to the infrageniculate veins. Interpretation Summary No duplex evidence of DVT or obstruction in the bilateral lower extremities. Name: REGULO HINES Age: 78 yrs Gender: Female : 1940 Patient Status: Emergency Patient Location: ER Study Date: 06/10/2019 09:51 AM Reason For Study: left leg pain ? DVT Ordering Physician: MISSY CHILDS Performed By: Geremias Posada : MISSY CHILDS > Landen Braxton
[2019-06-10 16:58] LABS: ALBUMIN 2.9 g/dL (3.5-5.0); ALKALINE PHOSPHATASE 153 U/L (38-126); ANION GAP 8 (5-19); ASPARTATE AMINO TRANSFERASE 15 U/L (14-36); BILIRUBIN,DIRECT 0.1 mg/dL (0.0-0.4); BILIRUBIN,TOTAL 0.6 mg/dL (0.2-1.3); BLOOD UREA NITROGEN 14 mg/dL (7-20); CARBON DIOXIDE 25 mmol/L (22-30); CHLORIDE 106 mmol/L (98-107); GLUCOSE 107 mg/dL (75-110); POTASSIUM 4.1 mmol/L (3.6-5.0); TOTAL PROTEIN 5.5 g/dL (6.3-8.2)
[2019-06-10] MEDS ORDERED: PROMETHAZINE HCL 25 MG TABLET PO PRN (17:26)
--- NOTE | 2019-06-10 17:28 | PDOC H&P ---
History of Present Illness Admission Date/PCP: 06/10/19 12:31 JUAN CALDERON MD History of Present Illness: REGULO HINES is a 78 year old female,, She has history of multiple myeloma recently diagnosed, coronary artery disease, she was admitted when she came to the emergency room for evaluation of leg pain, and also left knee pain. In the emergency room when she was evaluated the patient's sister stated that patient has had diarrhea for the past 1 week, there was a remote history of fall and that she injured her left knee. In the emergency room the left knee was swollen, the evaluation was done in the ER demonstrated severe hypomagnesemia, hypokalemia, the x-ray of the knee was consistent with effusion of the knee she was also found to have hypocalcemia, this is probably related to management of the hypercalcemia of malignancy related to the multiple myeloma.Hospital admission was advised because of the constellation of electrolyte ,acid-base derangement including hypomagnesemia, hypokalemia, hypocalcemia.I also noticed the patient while talking to her to have involuntary twitching of the torso, patient's sister said this is new since she was started on chemotherapy for her multiple myeloma, patient functional status has also been fluctuating since diagnosed with multiple myeloma there are days she function well and some times she has very poor function with poor mobility and limited ability to perform activities of daily living Past Medical History Cardiac Medical History: Reports: Coronary Artery Disease, Hyperlipidema, Hypertension Malignancy Medical History: Reports: Other - Multiple myeloma Musculoskeltal Medical History: Reports: Arthritis Psychiatric Medical History: Reports: Depression Hematology: Reports: Anemia - 2006 Past Surgical History Past Surgical History: Reports: Cholecystectomy, Hysterectomy Social History Smoking Status: Never Smoker Electronic Cigarette use?: No Frequency of Alcohol Use: None Hx Recreational Drug Use: No Drugs: None Hx Prescription Drug Abuse: No - Advance Directive Resuscitation Status: Full Code Family History Family History: Reviewed & Not Pertinent Parental Family History Reviewed: Yes Children Family History Reviewed: Yes Sibling(s) Family History Reviewed.: Yes Medication/Allergy Home Medications: Acyclovir [Acyclovir 400 mg Tablet] 400 mg PO BID 06/10/19 Carvedilol [Coreg] 25 mg PO Q12 06/10/19 Clopidogrel Bisulfate [Plavix 75 mg Tablet] 75 mg PO DAILY 06/10/19 Colestipol HCl [Colestid 1 gm Tablet] 2 gm PO BID 06/10/19 Dexamethasone [Decadron 4 Mg Tablet] 40 mg PO TU@1000 06/10/19 Hydrochlorothiazide [Hydrodiuril 25 mg Tablet] 25 mg PO DAILY 06/10/19 Montelukast Sodium [Singulair 10 mg Tablet] 10 mg PO DAILY 06/10/19 Omeprazole 20 mg PO DAILY 06/10/19 Ondansetron HCl [Zofran 8 mg Tablet] 8 mg PO Q8HP PRN 06/10/19 Oxycodone HCl/Acetaminophen [Percocet 5-325 mg Tablet] 1 tab PO Q4HP PRN 06/10/19 Potassium Chloride [Klor-Con 10 Meq Capsule ER] 20 meq PO DAILY 06/10/19 Pravastatin Sodium [Pravachol] 40 mg PO QHS 06/10/19 Pregabalin [Lyrica 75 mg Capsule] 75 mg PO Q12 06/10/19 Promethazine HCl [Phenergan 25 mg Tablet] 25 mg PO Q6HP PRN 06/10/19 Allergies/Adverse Reactions: No Known Allergies Allergy (Verified 06/10/19 07:48) Review of Systems Constitutional: PRESENT: weakness Ears: ABSENT: hearing changes Cardiovascular: ABSENT: chest pain, dyspnea on exertion, edema, orthropnea, palpitations Respiratory: ABSENT: cough, hemoptysis Gastrointestinal: PRESENT: diarrhea Genitourinary: ABSENT: dysuria, hematuria Musculoskeletal: PRESENT: joint swelling Integumentary: ABSENT: rash, wounds Neurological: ABSENT: abnormal gait, abnormal speech, confusion, dizziness, focal weakness, syncope Psychiatric: ABSENT: anxiety, depression, homidical ideation, suicidal ideation Endocrine: ABSENT: cold intolerance, heat intolerance, menstrual abnormalities, polydipsia, polyuria Hematologic/Lymphatic: ABSENT: easy bleeding, easy bruising, lymphadenopathy Physical Exam Vital Signs: Temp Pulse Resp BP Pulse Ox 98.7 F 83 21 H 139/56 H 97 06/10/19 14:01 06/10/19 07:19 06/10/19 14:01 06/10/19 14:01 06/10/19 07:19 Intake & Output 06/09/19 06/10/19 06/11/19 06:59 06:59 06:59 Intake Total 200 Balance 200 Weight 90.4 kg General appearance: PRESENT: obese Head exam: PRESENT: atraumatic, normocephalic Eye exam: PRESENT: PERRLA Neck exam: PRESENT: full ROM Respiratory exam: PRESENT: clear to auscultation loki Cardiovascular exam: PRESENT: RRR, +S1, +S2 Pulses: PRESENT: normal dorsalis pedis pul, +2 pedal pulses bilateral GI/Abdominal exam: PRESENT: normal bowel sounds, soft Rectal exam: PRESENT: deferred Extremities exam: PRESENT: joint swelling, other - There is left knee swelling, fluctuant Musculoskeletal exam: PRESENT: other Neurological exam: PRESENT: alert, CN II-XII grossly intact Psychiatric exam: PRESENT: appropriate affect, normal mood Skin exam: PRESENT: dry, intact, warm. ABSENT: cyanosis, rash Results Laboratory Results: 06/10/19 08:08 06/10/19 16:15 06/10/19 06/10/19 06/10/19 08:08 08:08 08:08 WBC 12.2 H RBC 3.24 L Hgb 8.7 L Hct 27.3 L MCV 85 MCH 27.0 MCHC 31.9 L RDW 19.0 H Plt Count 328 Seg Neutrophils % Not Reportable Sodium 141.7 Potassium 3.9 Chloride 110 H Carbon Dioxide 25 Anion Gap 7 BUN 14 Creatinine 0.89 Est GFR ( Amer) > 60 Glucose 92 Calcium 5.8 L* Magnesium 0.8 L* Total Bilirubin AST Alkaline Phosphatase Total Protein Albumin 06/10/19 16:15 WBC RBC Hgb Hct MCV MCH MCHC RDW Plt Count Seg Neutrophils % Sodium 138.7 Potassium 4.1 Chloride 106 Carbon Dioxide 25 Anion Gap 8 BUN 14 Creatinine 0.90 Est GFR ( Amer) > 60 Glucose 107 Calcium 6.0 L* Magnesium Total Bilirubin 0.6 AST 15 Alkaline Phosphatase 153 H Total Protein 5.5 L Albumin 2.9 L Impressions: Extremity Ultrasound 06/10/19 08:15 IMPRESSION: Nonspecific in synovitis in joint effusion with marked synovial thickening. In the differential however is synovial sarcoma. Knee X-Ray 06/10/19 08:15 IMPRESSION: Moderate joint effusion. Osteoarthritic changes as described. No displaced fracture. With the moderate joint effusion occult fracture cannot be excluded. Assessment & Plan - Diagnosis (1) Hypomagnesemia Is this a current diagnosis for this admission?: Yes Plan: She has hypomagnesemia this is secondary from chronic diarrhea, this will be replaced intravenously (2) Hypocalcemia Is this a current diagnosis for this admission?: Yes Plan: When corrected for hypoalbuminemia is not significantly low, (3) Arthropathy of left knee Is this a current diagnosis for this admission?: Yes Plan: Differential diagnosis includes trauma, gout, infectious, consultation will be requested from orthopedic for arthrocentesis (4) Gastroenteritis Is this a current diagnosis for this admission?: Yes Plan: The potential etiology includes infection, chemotherapy, treate with hydration (5) Urinary tract infection Qualifiers: Urinary tract infection type: site unspecified Hematuria presence: without hematuria Qualified Code(s): N39.0 - Urinary tract infection, site not specified Is this a current diagnosis for this admission?: Yes Plan: Start antibiotic for UTI (6) Multiple myeloma Qualifiers: Multiple myeloma remission status: not in remission Qualified Code(s): C90.00 - Multiple myeloma not having achieved remission Is this a current diagnosis for this admission?: Yes Plan: Per oncology
[2019-06-10 17:49] LABS: URIC ACID 5.5 mg/dL (2.5-7.5)
[2019-06-10 17:54] LABS: AMYLASE < 30 U/L (30-110)
[2019-06-10] MEDS ORDERED: (PENDING PHARMACY ID) (Colestipol Hcl [Colestid 1 Gm Tablet] 2 GM) PO SCH (18:00)
[2019-06-10 18:07] LABS: FREE T4 (FREE THYROXINE) 1.87 ng/dL (0.78-2.19)
[2019-06-10 18:21] LABS: THYROID STIMULATING HORMONE 0.39 uIU/mL (0.47-4.68)
[2019-06-10] MEDS: CLOPIDOGREL BISULFATE 75 MG TABLET PO SCH (18:39)
[2019-06-10] MEDS: PREGABALIN 75 MG CAPSULE PO SCH (18:39)
[2019-06-10] MEDS: ENOXAPARIN SODIUM INJ 40 MG/0.4 ML DISP.SYRIN SUBCUT SCH (18:39)
[2019-06-10] MEDS: CARVEDILOL 12.5 MG TABLET PO SCH (18:39)
[2019-06-10] MEDS: CALCIUM CARBONATE 500 MG TABLET PO SCH (19:48)
[2019-06-10] MEDS: POTASSI CL 20 MEQ/D5-1/4NS 1L 1,000 ML IV PRN (19:48)
[2019-06-10] MEDS: OXYCODONE-ACETAMINOPHEN 5-325 MG TABLET PO PRN (19:50)
[2019-06-10 20:00] LABS: CREATINE KINASE MB 0.74 ng/mL (<4.55)
[2019-06-10 20:04] LABS: TROPONIN I < 0.012 ng/mL
[2019-06-10 22:23] LABS: INTERNATIONAL RATION (INR) 1.35; PARTIAL THROMBOPLASTIN TIME 34.2 SEC (23.5-35.8); PROTHROMBIN TIME 16.8 SEC (11.4-15.4)
[2019-06-10 22:40] LABS: CREATINE KINASE MB 0.54 ng/mL (<4.55)
[2019-06-10 22:43] LABS: TROPONIN I < 0.012 ng/mL
[2019-06-10] MEDS: ACYCLOVIR 200 MG CAPSULE PO SCH (22:47)
[2019-06-10] MEDS: VANCOMYCIN HCL INJ 500 MG VIAL PO SCH (22:47)
[2019-06-11 03:55] LABS: APPEARANCE,URINE SLIGHTLY-CLOUDY; BILIRUBIN,URINE NEGATIVE (NEGATIVE); COLOR,URINE YELLOW; GLUCOSE, URINE NEGATIVE (NEGATIVE); KETONES,URINE NEGATIVE (NEGATIVE); LEUKOCYTE ESTERASE,URINE LARGE (NEGATIVE); NITRITE,URINE NEGATIVE (NEGATIVE); PROTEIN,URINE NEGATIVE (NEGATIVE); UROBILINOGEN,URINE NEGATIVE mg/dL (<2.0)
[2019-06-11] MEDS ORDERED: LIDOCAINE 2% INJ (20 MG/ML) 20 ML MDV INJ PRN (05:00)
[2019-06-11] MEDS ORDERED: TRIAMCINOLONE ACETONIDE INJ 40 MG/1 ML VIAL INJ PRN (05:00)
[2019-06-11 05:40] LABS: CREATINE KINASE MB 0.43 ng/mL (<4.55)
[2019-06-11 05:41] LABS: TROPONIN I < 0.012 ng/mL
[2019-06-11] MEDS: PREGABALIN 75 MG CAPSULE PO SCH ×2 (05:48→18:00)
[2019-06-11] MEDS: CARVEDILOL 12.5 MG TABLET PO SCH ×2 (05:48→18:00)
[2019-06-11] MEDS: OXYCODONE-ACETAMINOPHEN 5-325 MG TABLET PO PRN ×2 (05:49→21:25)
[2019-06-11] MEDS: VANCOMYCIN HCL INJ 500 MG VIAL PO SCH ×2 (05:49)
[2019-06-11] MEDS: POTASSI CL 20 MEQ/D5-1/4NS 1L 1,000 ML IV PRN (05:51)
[2019-06-11 05:59] LABS: HEMATOCRIT 25.4 % (36.0-47.0); HEMOGLOBIN 8.2 g/dL (12.0-15.5); MEAN CORPUSCULAR HEMOGLOBIN 27.1 pg (27.0-33.4); MEAN CORPUSCULAR HGB CONC 32.3 g/dL (32.0-36.0); MEAN CORPUSCULAR VOLUME 84 fl (80-97); PLATELET COUNT 283 10^3/uL (150-450); RED BLOOD COUNT 3.03 10^6/uL (3.72-5.28); RED CELL DISTRIBUTION WIDTH 19.5 % (11.5-14.0); WHITE BLOOD COUNT 11.5 10^3/uL (4.0-10.5)
[2019-06-11 06:20] LABS: ALBUMIN 2.7 g/dL (3.5-5.0); ALKALINE PHOSPHATASE 132 U/L (38-126); ASPARTATE AMINO TRANSFERASE 16 U/L (14-36); BILIRUBIN,DIRECT 0.1 mg/dL (0.0-0.4); BILIRUBIN,TOTAL 0.5 mg/dL (0.2-1.3); CHOLESTEROL 117.83 mg/dL (0-200); CREATINE KINASE 35 U/L (30-135); TOTAL PROTEIN 5.4 g/dL (6.3-8.2); TRIGLYCERIDES 104 mg/dL (<150)
[2019-06-11 06:23] LABS: ABSOLUTE LYMPHOCYTES# (MANUAL) 0.8 10^3/uL (0.5-4.7); BASOPHILS % (MANUAL) 0 % (0-2); EOSINOPHILS % (MANUAL) 0 % (0-6); LYMPHOCYTES % (MANUAL) 7 % (13-45); MONOCYTES % (MANUAL) 9 % (3-13); SEGMENTED NEUTROPHILS % (MAN) 84 % (42-78); TOTAL CELLS COUNTED 100
[2019-06-11 06:26] LABS: ANISOCYTOSIS 2+; BURR CELLS SLIGHT; OVALOCYTES 1+; PLATELET COMMENT ADEQUATE; POIKILOCYTOSIS 1+; TEAR DROP CELLS 1+; TOXIC GRANULATION SLIGHT
[2019-06-11 06:31] LABS: DIRECT LDL 42 mg/dL (<100)
--- NOTE | 2019-06-11 07:51 | PDOC CONSULTATION ---
Consultation Consult Date: 06/11/19 Provider Consulted: SUSANA UNDERWOOD JR Consult reason:: Left knee pain History of Present Illness Admission Date/PCP: 06/10/19 12:31 JUAN CALDERON MD Patient complains of: Left knee pain that began insidiously a few days ago. History of Present Illness: REGULO HINES is a 78 year old female Left knee pain that began insidiously a few days ago. She has multiple other medical comorbidities as well as history of osteoarthritis of her left knee. She explains that her left knee swelled and became too painful for ambulation over the last few days. She presented to the emergency department was found to have a left knee effusion on x-ray as well as severe osteoarthritis. She has not been able to ambulate due to pain. Due to her multiple other comorbidities she was admitted to the hospital and I was consulted for evaluation of her left knee. She denies any fevers chills nausea vomiting night sweats. The left knee is not currently warm or erythematous. This has happened in the past, but it is at a severe degree at this point. She denies a history of gout. Pain is described as aching 8 out of 10 rest, nonradiating, worse with motion, better with pain medication. Past Medical History Cardiac Medical History: Reports: Coronary Artery Disease, Hyperlipidema, Hypertension Denies: Myocardial Infarction Pulmonary Medical History: Denies: Asthma, Bronchitis, Chronic Obstructive Pulmonary Disease (COPD), Pneumonia Neurological Medical History: Denies: Seizures Musculoskeltal Medical History: Reports: Arthritis Psychiatric Medical History: Reports: Depression Hematology: Reports: Anemia - 2006 Past Surgical History Past Surgical History: Reports: Cholecystectomy, Hysterectomy Denies: Pacemaker Social History Information Source: Patient Smoking Status: Never Smoker Electronic Cigarette use?: No Frequency of Alcohol Use: None Hx Recreational Drug Use: No Drugs: None Hx Prescription Drug Abuse: No - Advance Directive Resuscitation Status: Full Code Family History Family History: Reviewed & Not Pertinent Parental Family History Reviewed: Yes Children Family History Reviewed: NA Sibling(s) Family History Reviewed.: NA Medication/Allergy Home Medications: Acyclovir [Acyclovir 400 mg Tablet] 400 mg PO BID 06/10/19 Carvedilol [Coreg] 25 mg PO Q12 06/10/19 Clopidogrel Bisulfate [Plavix 75 mg Tablet] 75 mg PO DAILY 06/10/19 Colestipol HCl [Colestid 1 gm Tablet] 2 gm PO BID 06/10/19 Dexamethasone [Decadron 4 Mg Tablet] 40 mg PO TU@1000 06/10/19 Hydrochlorothiazide [Hydrodiuril 25 mg Tablet] 25 mg PO DAILY 06/10/19 Montelukast Sodium [Singulair 10 mg Tablet] 10 mg PO DAILY 06/10/19 Omeprazole 20 mg PO DAILY 06/10/19 Ondansetron HCl [Zofran 8 mg Tablet] 8 mg PO Q8HP PRN 06/10/19 Oxycodone HCl/Acetaminophen [Percocet 5-325 mg Tablet] 1 tab PO Q4HP PRN 06/10/19 Potassium Chloride [Klor-Con 10 Meq Capsule ER] 20 meq PO DAILY 06/10/19 Pravastatin Sodium [Pravachol] 40 mg PO QHS 06/10/19 Pregabalin [Lyrica 75 mg Capsule] 75 mg PO Q12 06/10/19 Promethazine HCl [Phenergan 25 mg Tablet] 25 mg PO Q6HP PRN 06/10/19 Allergies/Adverse Reactions: No Known Allergies Allergy (Verified 06/10/19 07:48) Review of Systems ROS unobtainable: Other All systems: reviewed and no additional remarkable complaints except as stated Review of Systems: Constitutional: ABSENT: anorexia, chills, night sweats Cardiovascular: ABSENT: chest pain Respiratory: ABSENT: dyspnea Gastrointestinal: ABSENT: vomiting Genitourinary: ABSENT: Some recent dysuria, she is requiring a straight cath at this time. Integumentary: ABSENT: rash Neurological: ABSENT: confusion, memory loss, numbness Psychiatric: ABSENT: hallucinations Hematologic/Lymphatic: ABSENT: easy bleeding Physical Exam Vital Signs: Temp Pulse Resp BP Pulse Ox 97.8 F 84 16 115/49 L 95 06/11/19 03:31 06/11/19 03:31 06/11/19 03:31 06/11/19 03:31 06/11/19 03:31 Intake & Output 06/10/19 06/11/19 06/12/19 06:59 06:59 06:59 Intake Total 2440 Output Total 645 Balance 1795 Weight 91.1 kg Physical Exam: General appearance: PRESENT: no acute distress, cooperative, obese Head exam: PRESENT: atraumatic, normocephalic Eye exam: PRESENT: EOMI Ear exam: PRESENT: normal external ear exam Mouth exam: PRESENT: neck supple Neck exam: ABSENT: tracheal deviation Respiratory exam: PRESENT: symmetrical, unlabored. ABSENT: accessory muscle use, wheezes Pulses: PRESENT: normal radial pulses, normal dorsalis pedis pulse Vascular exam: PRESENT: normal capillary refill GI/Abdominal exam: ABSENT: distended, firm Extremities exam: PRESENT: full ROM of bilateral shoulders, elbows wrists, knees, hips and ankles without pain Musculoskeletal exam: PRESENT: full ROM, normal inspection of all 4 extremities aside from that noted below. Neurological exam: PRESENT: alert, awake, oriented to person, oriented to place, oriented to time Psychiatric exam: PRESENT: appropriate affect. ABSENT: agitated Focused psych exam: ABSENT: catatonic Skin exam: PRESENT: intact. ABSENT: dry All as above aside from that noted in the HPI and the following: Left lower extremity -Significant knee effusion, fluid wave that is taut. -Grossly neurovascular intact to the left lower extremity with intact motor function to EHL FHL gastroc and TA. Additionally sensation intact to DPN SPN sural and tibial nerve. -Compartments soft -No erythema drainage or warmth of the left knee at this time. Skin is intact. Results Laboratory Results: 06/11/19 05:18 06/10/19 16:15 06/10/19 06/10/19 06/10/19 08:08 08:08 08:08 WBC 12.2 H RBC 3.24 L Hgb 8.7 L Hct 27.3 L MCV 85 MCH 27.0 MCHC 31.9 L RDW 19.0 H Plt Count 328 Seg Neutrophils % Not Reportable Sodium 141.7 Potassium 3.9 Chloride 110 H Carbon Dioxide 25 Anion Gap 7 BUN 14 Creatinine 0.89 Est GFR ( Amer) > 60 Glucose 92 Uric Acid Calcium 5.8 L* Magnesium 0.8 L* Total Bilirubin AST Alkaline Phosphatase Ammonia Total Protein Albumin Triglycerides Cholesterol LDL Cholesterol Direct VLDL Cholesterol HDL Cholesterol Amylase Lipase TSH Free T4 Urine Color Urine Appearance Urine pH Ur Specific [place] Urine Protein Urine Glucose (UA) Urine Ketones Urine Blood Urine Nitrite Ur Leukocyte Esterase Urine WBC (Auto) Urine RBC (Auto) 06/10/19 06/10/19 06/10/19 16:15 16:15 16:15 WBC RBC Hgb Hct MCV MCH MCHC RDW Plt Count Seg Neutrophils % Sodium 138.7 Potassium 4.1 Chloride 106 Carbon Dioxide 25 Anion Gap 8 BUN 14 Creatinine 0.90 Est GFR ( Amer) > 60 Glucose 107 Uric Acid 5.5 Calcium 6.0 L* Magnesium Total Bilirubin 0.6 AST 15 Alkaline Phosphatase 153 H Ammonia Total Protein 5.5 L Albumin 2.9 L Triglycerides Cholesterol LDL Cholesterol Direct VLDL Cholesterol HDL Cholesterol Amylase < 30 L Lipase 38.1 TSH 0.39 L Free T4 1.87 Urine Color Urine Appearance Urine pH Ur Specific [place] Urine Protein Urine Glucose (UA) Urine Ketones Urine Blood Urine Nitrite Ur Leukocyte Esterase Urine WBC (Auto) Urine RBC (Auto) 06/10/19 06/11/19 06/11/19 21:59 03:30 04:12 WBC Cancelled RBC Cancelled Hgb Cancelled Hct Cancelled MCV Cancelled MCH Cancelled MCHC Cancelled RDW Cancelled Plt Count Cancelled Seg Neutrophils % Cancelled Sodium Potassium Chloride Carbon Dioxide Anion Gap BUN Creatinine Est GFR ( Amer) Glucose Uric Acid Calcium Magnesium Total Bilirubin AST Alkaline Phosphatase Ammonia < 8.7 L Total Protein Albumin Triglycerides Cholesterol LDL Cholesterol Direct VLDL Cholesterol HDL Cholesterol Amylase Lipase TSH Free T4 Urine Color YELLOW Urine Appearance SLIGHTLY-CLOUDY Urine pH 5.0 Ur Specific [place] 1.020 Urine Protein NEGATIVE Urine Glucose (UA) NEGATIVE Urine Ketones NEGATIVE Urine Blood NEGATIVE Urine Nitrite NEGATIVE Ur Leukocyte Esterase LARGE H Urine WBC (Auto) 13 Urine RBC (Auto) 18 06/11/19 06/11/19 05:18 05:18 WBC 11.5 H RBC 3.03 L Hgb 8.2 L Hct 25.4 L MCV 84 MCH 27.1 MCHC 32.3 RDW 19.5 H Plt Count 283 Seg Neutrophils % Not Reportable Sodium Potassium Chloride Carbon Dioxide Anion Gap BUN Creatinine Est GFR ( Amer) Glucose Uric Acid Calcium Magnesium 1.3 L Total Bilirubin 0.5 AST 16 Alkaline Phosphatase 132 H Ammonia Total Protein 5.4 L Albumin 2.7 L Triglycerides 104 Cholesterol 117.83 LDL Cholesterol Direct 42 VLDL Cholesterol 21.0 HDL Cholesterol 46 Amylase Lipase TSH Free T4 Urine Color Urine Appearance Urine pH Ur Specific [place] Urine Protein Urine Glucose (UA) Urine Ketones Urine Blood Urine Nitrite Ur Leukocyte Esterase Urine WBC (Auto) Urine RBC (Auto) 06/10/19 06/10/19 06/10/19 16:15 16:15 16:15 Creatine Kinase 44 CK-MB (CK-2) 0.74 Troponin I < 0.012 NT-Pro-B Natriuret Pep 285 06/10/19 06/10/19 06/11/19 21:59 21:59 04:12 Creatine Kinase 42 CK-MB (CK-2) 0.54 0.43 Troponin I < 0.012 < 0.012 NT-Pro-B Natriuret Pep 06/11/19 05:18 Creatine Kinase 35 CK-MB (CK-2) Troponin I NT-Pro-B Natriuret Pep Impressions: Extremity Ultrasound 06/10/19 08:15 IMPRESSION: Nonspecific in synovitis in joint effusion with marked synovial thickening. In the differential however is synovial sarcoma. Knee X-Ray 06/10/19 08:15 IMPRESSION: Moderate joint effusion. Osteoarthritic changes as described. No displaced fracture. With the moderate joint effusion occult fracture cannot be excluded. Assessment & Plan - Diagnosis (1) Effusion, left knee Plan: Patient resists range of motion of her left knee at this time due to pain. She is exquisitely tender to palpation diffusely about the knee. -Procedure Note: After discussing risks and benefits including treatment options and answering all questions patient provided verbal consent for left knee aspiration and injection. The skin was cleansed with an alcohol wipe and approximately 3 cc of lidocaine was applied to the injection site. After adequate analgesia an 18-gauge needle was inserted into the superior lateral patellar pouch and approximately 90 cc of cloudy synovial fluid was removed. Due to the coloration of fluid we determined that it was not safe for injection of medication at this time. This fluid will be sent for crystals culture cell count and Gram stain. If there is no concern for infectious etiology we will give her an injection at a later time. The patient tolerated the procedure well a sterile dressing was placed over the aspiration site. -She will remain weightbearing as tolerated on the left knee -We will follow labs to determine further action -Pain control per hospitalist
[2019-06-11 09:13] LABS: CALCIUM PYROPHOSPHATE CRYSTALS NONE OBSERVED; MONOSODIUM URATE CRYSTALS NONE OBSERVED; OTHER CRYSTALS NONE OBSERVED
[2019-06-11 09:24] LABS: FLUID TYPE SYNOVIAL
[2019-06-11 09:25] LABS: FLUID COLOR YELLOW; FLUID SOURCE KNEE
[2019-06-11 09:26] LABS: FLUID APPEARANCE CLOUDY; FLUID VISCOSITY MODERATELY VISCOUS
[2019-06-11 09:53] LABS: ANION GAP 7 (5-19); BLOOD UREA NITROGEN 18 mg/dL (7-20); CARBON DIOXIDE 22 mmol/L (22-30); CHLORIDE 112 mmol/L (98-107); GLUCOSE 143 mg/dL (75-110); POTASSIUM 4.1 mmol/L (3.6-5.0)
[2019-06-11 10:03] LABS: CALCIUM 6.3 mg/dL (8.4-10.2)
[2019-06-11] MEDS: ACYCLOVIR 200 MG CAPSULE PO SCH ×2 (10:23→21:24)
[2019-06-11] MEDS: COLCHICINE 0.6 MG TABLET PO SCH ×2 (10:23→21:24)
[2019-06-11] MEDS: CALCIUM CARBONATE 500 MG TABLET PO SCH ×2 (10:23→18:00)
[2019-06-11] MEDS: CLOPIDOGREL BISULFATE 75 MG TABLET PO SCH (10:23)
[2019-06-11] MEDS: ENOXAPARIN SODIUM INJ 40 MG/0.4 ML DISP.SYRIN SUBCUT SCH (10:24)
[2019-06-11] MEDS: CEFEPIME 1 GM/D5W RTU 1 GM/50 ML RTUPB IV SCH ×2 (10:24→21:24)
--- NOTE | 2019-06-11 11:05 | PDOC PROGRESS REPORT ---
Subjective Progress Note for:: 06/11/19 Subjective:: Patient was admitted because of the left knee pain and weakness and patient had aspirations done by the orthopedic surgery today and suggest possible gout but not sure sent for the culture Patient with no fever no chills Patient's white count is still little elevated Patient's calcium is still running low Denied any chest pain denied any shortness of the breath The daughter is on the bedside discussed with the all the plan Reason For Visit: HYPOMAGNESIA,HYPOCALCEMIA,KNEE EFFUSION WITH PAIN Physical Exam Vital Signs: Temp Pulse Resp BP Pulse Ox 97.8 F 82 16 115/49 L 95 06/11/19 03:31 06/11/19 07:00 06/11/19 03:31 06/11/19 03:31 06/11/19 03:31 Intake & Output 06/10/19 06/11/19 06/12/19 06:59 06:59 06:59 Intake Total 2440 Output Total 645 Balance 1795 Weight 91.1 kg General appearance: PRESENT: no acute distress, well-developed, well-nourished Head exam: PRESENT: atraumatic, normocephalic Eye exam: PRESENT: conjunctiva pink, EOMI, PERRLA. ABSENT: scleral icterus Ear exam: PRESENT: normal external ear exam Mouth exam: PRESENT: moist, tongue midline Neck exam: PRESENT: full ROM. ABSENT: carotid bruit, JVD, lymphadenopathy, thyromegaly Respiratory exam: PRESENT: clear to auscultation loki Cardiovascular exam: PRESENT: RRR. ABSENT: diastolic murmur, rubs, systolic murmur Pulses: PRESENT: normal dorsalis pedis pul, +2 pedal pulses bilateral Vascular exam: PRESENT: normal capillary refill GI/Abdominal exam: PRESENT: normal bowel sounds, soft. ABSENT: distended, guarding, mass, organolmegaly, rebound, tenderness Rectal exam: PRESENT: deferred Neurological exam: PRESENT: alert, awake, oriented to person, oriented to place, oriented to time, oriented to situation, CN II-XII grossly intact. ABSENT: motor sensory deficit Psychiatric exam: PRESENT: appropriate affect, normal mood. ABSENT: homicidal ideation, suicidal ideation Skin exam: PRESENT: dry, intact, warm. ABSENT: cyanosis, rash Results Laboratory Results: 06/11/19 05:18 06/11/19 04:12 06/10/19 06/10/19 06/10/19 16:15 16:15 16:15 WBC RBC Hgb Hct MCV MCH MCHC RDW Plt Count Seg Neutrophils % Sodium 138.7 Potassium 4.1 Chloride 106 Carbon Dioxide 25 Anion Gap 8 BUN 14 Creatinine 0.90 Est GFR ( Amer) > 60 Glucose 107 Uric Acid 5.5 Calcium 6.0 L* Magnesium Total Bilirubin 0.6 AST 15 Alkaline Phosphatase 153 H Ammonia Total Protein 5.5 L Albumin 2.9 L Triglycerides Cholesterol LDL Cholesterol Direct VLDL Cholesterol HDL Cholesterol Amylase < 30 L Lipase 38.1 TSH 0.39 L Free T4 1.87 Urine Color Urine Appearance Urine pH Ur Specific [place] Urine Protein Urine Glucose (UA) Urine Ketones Urine Blood Urine Nitrite Ur Leukocyte Esterase Urine WBC (Auto) Urine RBC (Auto) Fluid Type Fluid Source Fluid Color Fluid Appearance Fluid Viscosity Fluid WBC Fluid RBC 06/10/19 06/11/19 06/11/19 21:59 03:30 04:12 WBC Cancelled RBC Cancelled Hgb Cancelled Hct Cancelled MCV Cancelled MCH Cancelled MCHC Cancelled RDW Cancelled Plt Count Cancelled Seg Neutrophils % Cancelled Sodium Potassium Chloride Carbon Dioxide Anion Gap BUN Creatinine Est GFR ( Amer) Glucose Uric Acid Calcium Magnesium Total Bilirubin AST Alkaline Phosphatase Ammonia < 8.7 L Total Protein Albumin Triglycerides Cholesterol LDL Cholesterol Direct VLDL Cholesterol HDL Cholesterol Amylase Lipase TSH Free T4 Urine Color YELLOW Urine Appearance SLIGHTLY-CLOUDY Urine pH 5.0 Ur Specific [place] 1.020 Urine Protein NEGATIVE Urine Glucose (UA) NEGATIVE Urine Ketones NEGATIVE Urine Blood NEGATIVE Urine Nitrite NEGATIVE Ur Leukocyte Esterase LARGE H Urine WBC (Auto) 13 Urine RBC (Auto) 18 Fluid Type Fluid Source Fluid Color Fluid Appearance Fluid Viscosity Fluid WBC Fluid RBC 06/11/19 06/11/19 06/11/19 04:12 05:18 05:18 WBC 11.5 H RBC 3.03 L Hgb 8.2 L Hct 25.4 L MCV 84 MCH 27.1 MCHC 32.3 RDW 19.5 H Plt Count 283 Seg Neutrophils % Not Reportable Sodium 140.6 Potassium 4.1 Chloride 112 H Carbon Dioxide 22 Anion Gap 7 BUN 18 Creatinine 1.02 Est GFR ( Amer) > 60 Glucose 143 H Uric Acid Calcium 6.3 L* Magnesium 1.3 L Total Bilirubin 0.5 AST 16 Alkaline Phosphatase 132 H Ammonia Total Protein 5.4 L Albumin 2.7 L Triglycerides 104 Cholesterol 117.83 LDL Cholesterol Direct 42 VLDL Cholesterol 21.0 HDL Cholesterol 46 Amylase Lipase TSH Free T4 Urine Color Urine Appearance Urine pH Ur Specific [place] Urine Protein Urine Glucose (UA) Urine Ketones Urine Blood Urine Nitrite Ur Leukocyte Esterase Urine WBC (Auto) Urine RBC (Auto) Fluid Type Fluid Source Fluid Color Fluid Appearance Fluid Viscosity Fluid WBC Fluid RBC 06/11/19 06/11/19 06:30 06:30 WBC RBC Hgb Hct MCV MCH MCHC RDW Plt Count Seg Neutrophils % Sodium Potassium Chloride Carbon Dioxide Anion Gap BUN Creatinine Est GFR ( Amer) Glucose Uric Acid Calcium Magnesium Total Bilirubin AST Alkaline Phosphatase Ammonia Total Protein Albumin Triglycerides Cholesterol LDL Cholesterol Direct VLDL Cholesterol HDL Cholesterol Amylase Lipase TSH Free T4 Urine Color Urine Appearance Urine pH Ur Specific [place] Urine Protein Urine Glucose (UA) Urine Ketones Urine Blood Urine Nitrite Ur Leukocyte Esterase Urine WBC (Auto) Urine RBC (Auto) Fluid Type SYNOVIAL SYNOVIAL Fluid Source KNEE Fluid Color YELLOW Fluid Appearance CLOUDY Fluid Viscosity MODERATELY VISCOUS Fluid WBC 80154 Fluid RBC 0 06/10/19 06/10/19 06/10/19 16:15 16:15 16:15 Creatine Kinase 44 CK-MB (CK-2) 0.74 Troponin I < 0.012 NT-Pro-B Natriuret Pep 285 06/10/19 06/10/19 06/11/19 21:59 21:59 04:12 Creatine Kinase 42 CK-MB (CK-2) 0.54 0.43 Troponin I < 0.012 < 0.012 NT-Pro-B Natriuret Pep 06/11/19 05:18 Creatine Kinase 35 CK-MB (CK-2) Troponin I NT-Pro-B Natriuret Pep Impressions: Extremity Ultrasound 06/10/19 08:15 IMPRESSION: Nonspecific in synovitis in joint effusion with marked synovial thickening. In the differential however is synovial sarcoma. Knee X-Ray 06/10/19 08:15 IMPRESSION: Moderate joint effusion. Osteoarthritic changes as described. No displaced fracture. With the moderate joint effusion occult fracture cannot be excluded. Assessment & Plan - Diagnosis (1) Contusion of left knee Qualifiers: Encounter type: initial encounter Qualified Code(s): S80.02XA - Contusion of left knee, initial encounter Is this a current diagnosis for this admission?: Yes Plan: Currently follow with the surgery Will wait for the culture (2) Hypocalcemia Is this a current diagnosis for this admission?: Yes Plan: Will replace the calcium's Check the albumin Check the PTH Patient has a history of the multiple myeloma (3) Hypomagnesemia Is this a current diagnosis for this admission?: Yes Plan: Placed the magnesium's (4) Anemia Is this a current diagnosis for this admission?: Yes (5) Coronary artery disease Qualifiers: Coronary Disease-Associated Artery/Lesion type: unspecified vessel or lesion type Is this a current diagnosis for this admission?: Yes (6) Essential (primary) hypertension Is this a current diagnosis for this admission?: Yes (7) Multiple myeloma Qualifiers: Multiple myeloma remission status: not in remission Qualified Code(s): C90.00 - Multiple myeloma not having achieved remission Is this a current diagnosis for this admission?: Yes - Time Time Spent with patient: 25-34 minutes Level of Care: TELE Medications reviewed and adjusted accordingly: Yes Anticipated discharge: Other Within: Other - Plan Summary Plan Summary: Replace the electrolytes We will cover the antibiotic until the cultures back Continues to monitor
[2019-06-11] MEDS ORDERED: MAGNESIUM SULFATE/D5W 1 GM/100 ML RTUPB IV ONE (11:15)
[2019-06-11] MEDS ORDERED: CALCIUM GLUCONATE 1000 MG/10 ML INJ IV ONE (11:15)
--- NOTE | 2019-06-11 21:36 | EKG REPORT ---
SEVERITY:- ABNORMAL ECG - SINUS RHYTHM LEFT BUNDLE BRANCH BLOCK : Confirmed by: Jose Cruz Martini 11-Jun-2019 21:35:57
[2019-06-12] MEDS: CARVEDILOL 12.5 MG TABLET PO SCH (05:16)
[2019-06-12] MEDS: OXYCODONE-ACETAMINOPHEN 5-325 MG TABLET PO PRN (05:16)
[2019-06-12] MEDS: PREGABALIN 75 MG CAPSULE PO SCH ×2 (05:16→17:28)
[2019-06-12] MEDS: POTASSI CL 20 MEQ/D5-1/4NS 1L 1,000 ML IV PRN (05:16)
[2019-06-12 05:47] LABS: HEMATOCRIT 25.1 % (36.0-47.0); HEMOGLOBIN 8.1 g/dL (12.0-15.5); MEAN CORPUSCULAR HEMOGLOBIN 27.1 pg (27.0-33.4); MEAN CORPUSCULAR HGB CONC 32.2 g/dL (32.0-36.0); MEAN CORPUSCULAR VOLUME 84 fl (80-97); PLATELET COUNT 301 10^3/uL (150-450); RED BLOOD COUNT 2.99 10^6/uL (3.72-5.28); RED CELL DISTRIBUTION WIDTH 19.6 % (11.5-14.0)
[2019-06-12 06:06] LABS: ALBUMIN 2.8 g/dL (3.5-5.0); ALKALINE PHOSPHATASE 147 U/L (38-126); ANION GAP 7 (5-19); ASPARTATE AMINO TRANSFERASE 12 U/L (14-36); BILIRUBIN,DIRECT 0.1 mg/dL (0.0-0.4); BILIRUBIN,TOTAL 0.5 mg/dL (0.2-1.3); BLOOD UREA NITROGEN 24 mg/dL (7-20); CARBON DIOXIDE 24 mmol/L (22-30); CHLORIDE 103 mmol/L (98-107); GLUCOSE 119 mg/dL (75-110); POTASSIUM 4.4 mmol/L (3.6-5.0); TOTAL PROTEIN 5.8 g/dL (6.3-8.2)
[2019-06-12 06:13] LABS: CALCIUM 6.3 mg/dL (8.4-10.2)
[2019-06-12] MEDS ORDERED: MAGNESIUM SULFATE/D5W 1 GM/100 ML RTUPB IV ONE (06:36)
[2019-06-12] MEDS ORDERED: CALCIUM GLUCONATE 1,000 MG in DEXTROSE 5%-WATER 50 ML IV ONE (07:00)
[2019-06-12 07:14] LABS: ABSOLUTE LYMPHOCYTES# (MANUAL) 0.8 10^3/uL (0.5-4.7); ABSOLUTE MONOCYTES # (MANUAL) 1.6 10^3/uL (0.1-1.4); ANISOCYTOSIS 2+; BAND NEUTROPHILS % (MANUAL) 1 % (3-5); BASOPHILS % (MANUAL) 0 % (0-2); EOSINOPHILS % (MANUAL) 1 % (0-6); HYPOCHROMASIA 1+; LYMPHOCYTES % (MANUAL) 6 % (13-45); MONOCYTES % (MANUAL) 12 % (3-13); SEGMENTED NEUTROPHILS % (MAN) 80 % (42-78); TOTAL CELLS COUNTED 100
[2019-06-12 07:15] LABS: PLATELET COMMENT ADEQUATE
[2019-06-12] MEDS ORDERED: CALCIUM GLUCONATE 1000 MG/10 ML INJ IV ONE (07:30)
--- NOTE | 2019-06-12 07:58 | PDOC PROGRESS REPORT ---
Subjective Progress Note for:: 06/12/19 Subjective:: Ms. Campbell appears comfortable at this time. She was sleeping upon initiation of exam. She reports improvement of pain in her left knee since aspiration. No acute events overnight. Reason For Visit: HYPOMAGNESIA,HYPOCALCEMIA,KNEE EFFUSION WITH PAIN Physical Exam Vital Signs: Temp Pulse Resp BP Pulse Ox 97.6 F 81 18 120/72 97 06/12/19 00:00 06/12/19 02:00 06/12/19 00:00 06/12/19 00:00 06/12/19 00:00 Intake & Output 06/11/19 06/12/19 06/13/19 06:59 06:59 06:59 Intake Total 2440 2160 Output Total 645 675 Balance 1795 1485 Weight 91.1 kg 95.3 kg Physical Exam: General appearance: PRESENT: no acute distress, cooperative, obese Head exam: PRESENT: atraumatic, normocephalic Eye exam: PRESENT: EOMI Ear exam: PRESENT: normal external ear exam Mouth exam: PRESENT: neck supple Neck exam: ABSENT: tracheal deviation Respiratory exam: PRESENT: symmetrical, unlabored. ABSENT: accessory muscle use, wheezes Pulses: PRESENT: normal radial pulses, normal dorsalis pedis pulse Vascular exam: PRESENT: normal capillary refill GI/Abdominal exam: ABSENT: distended, firm Extremities exam: PRESENT: full ROM of bilateral shoulders, elbows wrists, knees, hips and ankles without pain Musculoskeletal exam: PRESENT: full ROM, normal inspection of all 4 extremities aside from that noted below. Neurological exam: PRESENT: alert, awake, oriented to person, oriented to place, oriented to time Psychiatric exam: PRESENT: appropriate affect. ABSENT: agitated Focused psych exam: ABSENT: catatonic Skin exam: PRESENT: intact. ABSENT: dry All as above aside from that noted in the HPI and the following: Left lower extremity - Knee effusion has returned since aspiration of ~90 cc of cloudy fluid yesterday. Not as significant as yesterday. -Grossly neurovascular intact to the left lower extremity with intact motor function to EHL FHL gastroc and TA. Additionally sensation intact to DPN SPN sural and tibial nerve. -Compartments soft -No erythema drainage or warmth of the left knee at this time. Skin is intact. General appearance: PRESENT: no acute distress Results Laboratory Results: 06/12/19 05:30 06/12/19 05:30 06/11/19 06/11/19 06/11/19 04:12 06:30 06:30 WBC RBC Hgb Hct MCV MCH MCHC RDW Plt Count Seg Neutrophils % Sodium 140.6 Potassium 4.1 Chloride 112 H Carbon Dioxide 22 Anion Gap 7 BUN 18 Creatinine 1.02 Est GFR ( Amer) > 60 Glucose 143 H Calcium 6.3 L* Magnesium Total Bilirubin AST Alkaline Phosphatase Total Protein Albumin PTH Intact Fluid Type SYNOVIAL SYNOVIAL Fluid Source KNEE Fluid Color YELLOW Fluid Appearance CLOUDY Fluid Viscosity MODERATELY VISCOUS Fluid WBC 63983 Fluid RBC 0 06/11/19 06/12/19 06/12/19 15:15 05:30 05:30 WBC 13.0 H RBC 2.99 L Hgb 8.1 L Hct 25.1 L MCV 84 MCH 27.1 MCHC 32.2 RDW 19.6 H Plt Count 301 Seg Neutrophils % Not Reportable Sodium 134.0 L Potassium 4.4 Chloride 103 Carbon Dioxide 24 Anion Gap 7 BUN 24 H Creatinine 1.19 Est GFR ( Amer) 53 L Glucose 119 H Calcium 6.3 L* Magnesium 1.3 L Total Bilirubin 0.5 AST 12 L Alkaline Phosphatase 147 H Total Protein 5.8 L Albumin 2.8 L PTH Intact 457.6 H Fluid Type Fluid Source Fluid Color Fluid Appearance Fluid Viscosity Fluid WBC Fluid RBC 06/10/19 06/10/19 06/10/19 16:15 16:15 16:15 Creatine Kinase 44 CK-MB (CK-2) 0.74 Troponin I < 0.012 NT-Pro-B Natriuret Pep 285 06/10/19 06/10/19 06/11/19 21:59 21:59 04:12 Creatine Kinase 42 CK-MB (CK-2) 0.54 0.43 Troponin I < 0.012 < 0.012 NT-Pro-B Natriuret Pep 06/11/19 05:18 Creatine Kinase 35 CK-MB (CK-2) Troponin I NT-Pro-B Natriuret Pep Impressions: Extremity Ultrasound 06/10/19 08:15 IMPRESSION: Nonspecific in synovitis in joint effusion with marked synovial thickening. In the differential however is synovial sarcoma. Knee X-Ray 06/10/19 08:15 IMPRESSION: Moderate joint effusion. Osteoarthritic changes as described. No displaced fracture. With the moderate joint effusion occult fracture cannot be excluded. Assessment & Plan - Diagnosis (1) Effusion, left knee Is this a current diagnosis for this admission?: Yes Plan: The white blood cell count in the aspirate was 30,000. This is not quite as high as we would expect for a infectious etiology but is likely inflammatory in nature. The crystal results are negative for gout or pseudogout however this is not highly sensitive for those etiologies. As long as the cultures come back negative we can consider injection with steroid into the knee. This will likely be determined after 3 days of culture. Her knee effusion has returned. I would aspirate again prior to injection Still encourage weightbearing as tolerated and activity as tolerated. Out of bed encouraged with physical therapy. She does have severe osteoarthritis of the left knee and this could be a reactiv e synovitis. If she is discharged prior to complete lab result, she should see me in the office for further treatment. - Time Time Spent with patient: Less than 15 minutes
[2019-06-12] MEDS: ENOXAPARIN SODIUM INJ 40 MG/0.4 ML DISP.SYRIN SUBCUT SCH (09:38)
[2019-06-12] MEDS: CLOPIDOGREL BISULFATE 75 MG TABLET PO SCH (09:39)
--- NOTE | 2019-06-12 10:01 | PDOC PROGRESS REPORT ---
Subjective Progress Note for:: 06/12/19 Subjective:: Patient is currently doing fair Patient's blood pressure was running in the lower but patient asymptomatic Patient's having difficulty in urination is put the Matos catheter Patient has some red tinge color urine Patient have a history of myeloma currently see Dr. Gagnon Patient is denied any chest pain to than any shortness of the breath Denied any abdominal pain Reason For Visit: HYPOMAGNESIA,HYPOCALCEMIA,KNEE EFFUSION WITH PAIN Physical Exam Vital Signs: Temp Pulse Resp BP Pulse Ox 98.9 F 77 16 82/37 L 99 06/12/19 08:02 06/12/19 08:02 06/12/19 08:02 06/12/19 08:02 06/12/19 08:02 Intake & Output 06/11/19 06/12/19 06/13/19 06:59 06:59 06:59 Intake Total 2440 2160 Output Total 645 675 Balance 1795 1485 Weight 91.1 kg 95.3 kg General appearance: PRESENT: no acute distress, well-developed, well-nourished Head exam: PRESENT: atraumatic, normocephalic Eye exam: PRESENT: conjunctiva pink, EOMI, PERRLA. ABSENT: scleral icterus Ear exam: PRESENT: normal external ear exam Mouth exam: PRESENT: moist, tongue midline Neck exam: PRESENT: full ROM. ABSENT: carotid bruit, JVD, lymphadenopathy, thyromegaly Respiratory exam: PRESENT: clear to auscultation loki Cardiovascular exam: PRESENT: RRR. ABSENT: diastolic murmur, rubs, systolic murmur Pulses: PRESENT: normal dorsalis pedis pul, +2 pedal pulses bilateral Vascular exam: PRESENT: normal capillary refill GI/Abdominal exam: PRESENT: normal bowel sounds, soft. ABSENT: distended, guarding, mass, organolmegaly, rebound, tenderness Rectal exam: PRESENT: deferred Neurological exam: PRESENT: alert, awake, oriented to person, oriented to place, oriented to time, oriented to situation, CN II-XII grossly intact. ABSENT: motor sensory deficit Psychiatric exam: PRESENT: appropriate affect, normal mood. ABSENT: homicidal ideation, suicidal ideation Skin exam: PRESENT: dry, intact, warm. ABSENT: cyanosis, rash Results Laboratory Results: 06/12/19 05:30 06/12/19 05:30 06/11/19 06/11/19 06/12/19 04:12 15:15 05:30 WBC 13.0 H RBC 2.99 L Hgb 8.1 L Hct 25.1 L MCV 84 MCH 27.1 MCHC 32.2 RDW 19.6 H Plt Count 301 Seg Neutrophils % Not Reportable Sodium 140.6 Potassium 4.1 Chloride 112 H Carbon Dioxide 22 Anion Gap 7 BUN 18 Creatinine 1.02 Est GFR ( Amer) > 60 Glucose 143 H Lactic Acid Calcium 6.3 L* Magnesium Total Bilirubin AST Alkaline Phosphatase Total Protein Albumin PTH Intact 457.6 H 06/12/19 06/12/19 05:30 09:19 WBC RBC Hgb Hct MCV MCH MCHC RDW Plt Count Seg Neutrophils % Sodium 134.0 L Potassium 4.4 Chloride 103 Carbon Dioxide 24 Anion Gap 7 BUN 24 H Creatinine 1.19 Est GFR ( Amer) 53 L Glucose 119 H Lactic Acid 0.9 Calcium 6.3 L* Magnesium 1.3 L Total Bilirubin 0.5 AST 12 L Alkaline Phosphatase 147 H Total Protein 5.8 L Albumin 2.8 L PTH Intact 06/10/19 06/10/19 06/10/19 16:15 16:15 16:15 Creatine Kinase 44 CK-MB (CK-2) 0.74 Troponin I < 0.012 NT-Pro-B Natriuret Pep 285 06/10/19 06/10/19 06/11/19 21:59 21:59 04:12 Creatine Kinase 42 CK-MB (CK-2) 0.54 0.43 Troponin I < 0.012 < 0.012 NT-Pro-B Natriuret Pep 06/11/19 05:18 Creatine Kinase 35 CK-MB (CK-2) Troponin I NT-Pro-B Natriuret Pep Impressions: Extremity Ultrasound 06/10/19 08:15 IMPRESSION: Nonspecific in synovitis in joint effusion with marked synovial thickening. In the differential however is synovial sarcoma. Knee X-Ray 06/10/19 08:15 IMPRESSION: Moderate joint effusion. Osteoarthritic changes as described. No displaced fracture. With the moderate joint effusion occult fracture cannot be excluded. Assessment & Plan - Diagnosis (1) Contusion of left knee Qualifiers: Encounter type: initial encounter Qualified Code(s): S80.02XA - Contusion of left knee, initial encounter Is this a current diagnosis for this admission?: Yes Plan: As per the Ortho not no sign of any infectious process mostly inflammatory Still waiting for the full culture reports (2) Hypocalcemia Is this a current diagnosis for this admission?: Yes Plan: Will replace the calcium's Check the albumin Check the PTH Patient has a history of the multiple myeloma (3) Hypomagnesemia Is this a current diagnosis for this admission?: Yes Plan: Placed the magnesium's (4) Anemia Is this a current diagnosis for this admission?: Yes Plan: Consult to Dr. Gagnon to further evaluations (5) Coronary artery disease Qualifiers: Coronary Disease-Associated Artery/Lesion type: unspecified vessel or lesion type Is this a current diagnosis for this admission?: Yes (6) Essential (primary) hypertension Is this a current diagnosis for this admission?: Yes Plan: We reduce the carvedilol (7) Multiple myeloma Qualifiers: Multiple myeloma remission status: not in remission Qualified Code(s): C90.00 - Multiple myeloma not having achieved remission Is this a current diagnosis for this admission?: Yes Plan: With the confusion history of the consult Dr. Penn for further evaluate this (8) Urinary tract infection Qualifiers: Urinary tract infection type: site unspecified Is this a current diagnosis for this admission?: Yes Plan: IV antibiotic (9) Hematuria Qualifiers: Hematuria type: unspecified type Qualified Code(s): R31.9 - Hematuria, uns pecified Is this a current diagnosis for this admission?: Yes Plan: Possible most likely UTI versus Matos We will get the CT abdomen and pelvis Hold the Lovenox and Plavix Continues IV fluid - Time Time Spent with patient: 15-24 minutes Level of Care: TELE Medications reviewed and adjusted accordingly: Yes Anticipated discharge: Other Within: Other - Plan Summary Plan Summary: Continues to IV fluid Continues IV antibiotic Consult hematology and oncology Get the CT scan of the abdomen and pelvis for the hematuria
[2019-06-12] MEDS: COLCHICINE 0.6 MG TABLET PO SCH ×2 (10:27→21:04)
[2019-06-12] MEDS: CALCIUM CARBONATE 500 MG TABLET PO SCH ×2 (10:27→17:28)
[2019-06-12] MEDS: CEFEPIME 1 GM/D5W RTU 1 GM/50 ML RTUPB IV SCH ×2 (10:27→21:05)
[2019-06-12] MEDS: ACYCLOVIR 200 MG CAPSULE PO SCH ×2 (10:27→21:04)
--- NOTE | 2019-06-12 11:48 | RADIOLOGY REPORT (SQ) ---
EXAM DESCRIPTION: CT ABD/PELVIS NO ORAL OR IV COMPLETED DATE/TIME: 06/12/2019 11:32 am REASON FOR STUDY: abdominal pain COMPARISON: 04/02/2019 TECHNIQUE: CT scan of the abdomen and pelvis performed without intravenous or oral contrast. Images reviewed with lung, soft tissue, and bone windows. Reconstructed coronal and sagittal MPR images revi ewed. All images stored on PACS. All CT scanners at this facility use dose modulation, iterative reconstruction, and/or weight based d osing when appropriate to reduce radiation dose to as low as reasonably achievable (ALARA). [facility]: Dose Right [facility]: CareDose [facility]: Dose Right [facility]: Teradose 4D [facility]: Smart [employer] RADIATION DOSE: CT Rad equipment meets quality standard of care and radiation dose reduction techniq ues were employed. CTDIvol: 16.4 - 18.3 mGy. DLP: 1104 mGy-cm.mGy. LIMITATIONS: None. FINDINGS: LOWER CHEST: No significant findings. No nodules or infiltrates. NON-CONTRASTED LIVER, SPLEEN, ADRENALS: Evaluation limited by lack of IV contrast. No identified sign ificant masses. PANCREAS: No masses. No peripancreatic inflammatory changes. GALLBLADDER: Surgically absent. RIGHT KIDNEY AND URETER: Mass poorly seen without contrast. Assessment limited by lack of IV contras t. No significant calcifications. No hydronephrosis or hydroureter. LEFT KIDNEY AND URETER: No suspicious masses. Assessment limited by lack of IV contrast. No signifi cant calcifications. No hydronephrosis or hydroureter. AORTA AND RETROPERITONEUM: No aneurysm. No retroperitoneal masses or adenopathy. BOWEL AND PERITONEAL CAVITY: No obvious masses or inflammatory changes. No free fluid. APPENDIX: Normal. PELVIS, BLADDER, AND ABDOMINAL WALL:No abnormal masses. No free fluid. Bladder normal. BONES: Extensive lytic bone lesions. No definitive progression. No pathologic fracture. OTHER: No other significant finding. IMPRESSION: Extensive lytic bone lesions without progression. No acute interval change. COMMENT: Quality ID # [id number]: Final reports with documentation of one or more dose reduction techniques (e.g., Automated exposure control, adjustment of the mA and/or kV according to patient size, use of iterative reconstruction technique) TECHNICAL DOCUMENTATION: JOB ID: [id number] [employer]- All Rights Reserved Reading location - IP/workstation name: [email or web address]
[2019-06-12] MEDS: CARVEDILOL 6.25 MG TABLET PO SCH (17:28)
[2019-06-12] MEDS ORDERED: CARVEDILOL 12.5 MG TABLET PO SCH (18:00)
[2019-06-13] MEDS: OXYCODONE-ACETAMINOPHEN 5-325 MG TABLET PO PRN ×2 (01:57→13:11)
[2019-06-13 05:12] LABS: ALBUMIN 2.2 g/dL (3.5-5.0); ALKALINE PHOSPHATASE 135 U/L (38-126); ANION GAP 8 (5-19); ASPARTATE AMINO TRANSFERASE 46 U/L (14-36); BILIRUBIN,DIRECT 0.2 mg/dL (0.0-0.4); BILIRUBIN,TOTAL 0.4 mg/dL (0.2-1.3); BLOOD UREA NITROGEN 20 mg/dL (7-20); CARBON DIOXIDE 22 mmol/L (22-30); CHLORIDE 105 mmol/L (98-107); GLUCOSE 121 mg/dL (75-110); HEMATOCRIT 24.4 % (36.0-47.0); MEAN CORPUSCULAR HGB CONC 32.1 g/dL (32.0-36.0); MEAN CORPUSCULAR VOLUME 84 fl (80-97); PLATELET COUNT 310 10^3/uL (150-450); RED CELL DISTRIBUTION WIDTH 19.7 % (11.5-14.0); TOTAL PROTEIN 4.7 g/dL (6.3-8.2); WHITE BLOOD COUNT 10.6 10^3/uL (4.0-10.5)
[2019-06-13 05:14] LABS: HEMOGLOBIN 7.8 g/dL (12.0-15.5)
[2019-06-13] MEDS: PREGABALIN 75 MG CAPSULE PO SCH ×2 (05:18→17:27)
[2019-06-13] MEDS: CARVEDILOL 6.25 MG TABLET PO SCH ×2 (05:18→17:27)
[2019-06-13 05:45] LABS: CALCIUM 6.2 mg/dL (8.4-10.2)
[2019-06-13 05:50] LABS: ABSOLUTE LYMPHOCYTES# (MANUAL) 0.8 10^3/uL (0.5-4.7); ABSOLUTE MONOCYTES # (MANUAL) 1.1 10^3/uL (0.1-1.4); BAND NEUTROPHILS % (MANUAL) 4 % (3-5); BASOPHILS % (MANUAL) 0 % (0-2); EOSINOPHILS % (MANUAL) 0 % (0-6); LYMPHOCYTES % (MANUAL) 8 % (13-45); MONOCYTES % (MANUAL) 10 % (3-13); SEGMENTED NEUTROPHILS % (MAN) 78 % (42-78); TOTAL CELLS COUNTED 100
[2019-06-13 05:51] LABS: ANISOCYTOSIS 2+
[2019-06-13 05:52] LABS: PLATELET COMMENT ADEQUATE
[2019-06-13] MEDS ORDERED: NORMAL SALINE 250 ML IV PRN (07:51)
[2019-06-13] MEDS: ENOXAPARIN SODIUM INJ 40 MG/0.4 ML DISP.SYRIN SUBCUT SCH (10:10)
[2019-06-13] MEDS: CALCIUM CARBONATE 500 MG TABLET PO SCH ×2 (10:11→17:27)
[2019-06-13] MEDS: CLOPIDOGREL BISULFATE 75 MG TABLET PO SCH (10:11)
[2019-06-13] MEDS: CEFEPIME 1 GM/D5W RTU 1 GM/50 ML RTUPB IV SCH ×2 (10:12→21:29)
[2019-06-13] MEDS: COLCHICINE 0.6 MG TABLET PO SCH ×2 (10:12→21:29)
[2019-06-13] MEDS: ACYCLOVIR 200 MG CAPSULE PO SCH ×2 (10:12→21:29)
--- NOTE | 2019-06-13 10:34 | PDOC CONSULTATION ---
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 She was started on Revlimid/Dexamethasone/Velcade on 04/25/2019. She was also started on Xgeva for her bones and her hypercalcemia. Her most recent dose was . All treatment was placed on hold Jun 06 due to diarrhea. Her most recent dose of velcade was May 30. She has had anemia to the myeloma and the treatments. Although EPO was ordered, her insurance co-pay was too high to begin this medication. She presented to the ED with pain and swelling in her left knee. DVT was ruled out and the joint was aspirated. She was also started on antibiotics for UTI. She was found to have a very low Ca level and this is being replaced. Currently, she is confused and does not answer my questions appropriately. Caregiver is at bedside. She states that the diarrhea is getting a little better. Past Medical History Cardiac Medical History: Reports: Coronary Artery Disease, Hyperlipidema, Hypertension Denies: Myocardial Infarction Pulmonary Medical History: Denies: Asthma, Bronchitis, Chronic Obstructive Pulmonary Disease (COPD), Pneumonia Neurological Medical History: Denies: Seizures Musculoskeltal Medical History: Reports: Arthritis Psychiatric Medical History: Reports: Depression Hematology: Reports: Anemia - 2005 Past Surgical History Past Surgical History: Reports: Cholecystectomy, Hysterectomy Denies: Pacemaker Social History Smoking Status: Never Smoker Electronic Cigarette use?: No Frequency of Alcohol Use: None Hx Recreational Drug Use: No Drugs: None Hx Prescription Drug Abuse: No - Advance Directive Resuscitation Status: Full Code Family History Parental Family History Reviewed: Yes - Mother alive with pancreatic cancer Children Family History Reviewed: Yes - Daughter alive with Rheumatoid arthritis. Sibling(s) Family History Reviewed.: Yes - Brother alive with prostate cancer Medication/Allergy Home Medications: Acyclovir [Acyclovir 400 mg Tablet] 400 mg PO BID 06/10/19 Carvedilol [Coreg] 25 mg PO Q12 06/10/19 Clopidogrel Bisulfate [Plavix 75 mg Tablet] 75 mg PO DAILY 06/10/19 Colestipol HCl [Colestid 1 gm Tablet] 2 gm PO BID 06/10/19 Dexamethasone [Decadron 4 Mg Tablet] 40 mg PO TU@1000 06/10/19 Hydrochlorothiazide [Hydrodiuril 25 mg Tablet] 25 mg PO DAILY 06/10/19 Montelukast Sodium [Singulair 10 mg Tablet] 10 mg PO DAILY 06/10/19 Omeprazole 20 mg PO DAILY 06/10/19 Ondansetron HCl [Zofran 8 mg Tablet] 8 mg PO Q8HP PRN 06/10/19 Oxycodone HCl/Acetaminophen [Percocet 5-325 mg Tablet] 1 tab PO Q4HP PRN 06/10/19 Potassium Chloride [Klor-Con 10 Meq Capsule ER] 20 meq PO DAILY 06/10/19 Pravastatin Sodium [Pravachol] 40 mg PO QHS 06/10/19 Pregabalin [Lyrica 75 mg Capsule] 75 mg PO Q12 06/10/19 Promethazine HCl [Phenergan 25 mg Tablet] 25 mg PO Q6HP PRN 06/10/19 Allergies/Adverse Reactions: No Known Allergies Allergy (Verified 06/10/19 07:48) Review of Systems Constitutional: ABSENT: fever(s), headache(s) Eyes: ABSENT: visual disturbances Ears: ABSENT: hearing changes Nose, Mouth, and Throat: ABSENT: sore throat Cardiovascular: ABSENT: chest pain Respiratory: ABSENT: dyspnea Gastrointestinal: PRESENT: diarrhea. ABSENT: abdominal pain Genitourinary: ABSENT: dysuria Musculoskeletal: PRESENT: as per HPI Neurological: PRESENT: as per HPI Hematologic/Lymphatic: ABSENT: easy bleeding Physical Exam Vital Signs: Temp Pulse Resp BP Pulse Ox 98.2 F 80 17 106/49 L 98 06/13/19 10:18 06/13/19 08:02 06/13/19 08:02 06/13/19 10:18 06/13/19 08:02 Intake & Output 06/12/19 06/13/19 06/14/19 06:59 06:59 06:59 Intake Total 2160 765 Output Total 675 1500 Balance 1485 -735 Weight 95.3 kg 98.2 kg General appearance: PRESENT: no acute distress Exam: Overweight, female. Head exam: PRESENT: atraumatic, normocephalic Eye exam: PRESENT: EOMI Mouth exam: PRESENT: moist Neck exam: ABSENT: lymphadenopathy, tenderness Respiratory exam: PRESENT: clear to auscultation loki, unlabored Cardiovascular exam: PRESENT: RRR GI/Abdominal exam: PRESENT: soft. ABSENT: tenderness Musculoskeletal exam: ABSENT: ambulatory Neurological exam: PRESENT: other - Sleeping peacefully/ Arouses briafly. Psychiatric exam: PRESENT: appropriate affect Skin exam: PRESENT: normal color Results Laboratory Results: 06/13/19 04:14 06/13/19 04:14 06/13/19 06/13/19 06/13/19 04:14 04:14 08:38 WBC 10.6 H RBC 2.90 L Hgb 7.8 L Hct 24.4 L MCV 84 MCH 27.0 MCHC 32.1 RDW 19.7 H Plt Count 310 Seg Neutrophils % Not Reportable Sodium 135.3 L Potassium 5.0 Chloride 105 Carbon Dioxide 22 Anion Gap 8 BUN 20 Creatinine 0.95 Est GFR ( Amer) > 60 Glucose 121 H Calcium 6.2 L* Magnesium 1.5 L Total Bilirubin 0.4 AST 46 H Alkaline Phosphatase 135 H Total Protein 4.7 L Albumin 2.2 L Blood Type A POSITIVE Antibody Screen NEGATIVE 06/11/19 03:30 Catheterized Urine Urine Culture - Final Enterobacter Cloacae 06/10/19 06/10/19 06/10/19 16:15 16:15 16:15 Creatine Kinase 44 CK-MB (CK-2) 0.74 Troponin I < 0.012 NT-Pro-B Natriuret Pep 285 06/10/19 06/10/19 06/11/19 21:59 21:59 04:12 Creatine Kinase 42 CK-MB (CK-2) 0.54 0.43 Troponin I < 0.012 < 0.012 NT-Pro-B Natriuret Pep 06/11/19 05:18 Creatine Kinase 35 CK-MB (CK-2) Troponin I NT-Pro-B Natriuret Pep Impressions: Extremity Ultrasound 06/10/19 08:15 IMPRESSION: Nonspecific in synovitis in joint effusion with marked synovial thickening. In the differential however is synovial sarcoma. Knee X-Ray 06/10/19 08:15 IMPRESSION: Moderate joint effusion. Osteoarthritic changes as described. No displaced fracture. With the moderate joint effusion occult fracture cannot be excluded. Abdomen/Pelvis CT 06/12/19 00:00 IMPRESSION: Extensive lytic bone lesions without progression. No acute interval change. Assessment & Plan - Diagnosis (1) Diarrhea Qualifiers: Diarrhea type: unspecified type Qualified Code(s): R19.7 - Diarrhea, unspecified Is this a current diagnosis for this admission?: Yes Plan: Her chemo has been on hold. Although I doubt C. dif, will need to test for this. (2) Hypocalcemia Is this a current diagnosis for this admission?: Yes Plan: Start oral calcium as well as IV replacement. (3) Anemia Qualifiers: Anemia type: other cause Other causes of anemia: chronic disease, neoplastic Qualified Code(s): D63.0 - Anemia in neoplastic disease Is this a current diagnosis for this admission?: Yes Plan: I discussed blood transfusion. I believe this may help her feel better. She agrees. I will arrange 2 units pRBCs. (4) Multiple myeloma Qualifiers: Multiple myeloma remission status: not in remission Qualified Code(s): C90.00 - Multiple myeloma not having achieved remission Is this a current diagnosis for this admission?: Yes Plan: All treatment on hold currently. - Plan Summary Plan Summary: Thank you for this consultation. I will continue to follow her with you. Please feel free to call with any questions or concerns.
--- NOTE | 2019-06-13 12:47 | PDOC PROGRESS REPORT ---
Subjective Progress Note for:: 06/13/19 Reason For Visit: HYPOMAGNESIA,HYPOCALCEMIA,KNEE EFFUSION WITH PAIN Physical Exam Vital Signs: Temp Pulse Resp BP Pulse Ox 99.5 F 84 23 H 95/60 L 100 06/13/19 12:40 06/13/19 12:40 06/13/19 12:40 06/13/19 12:40 06/13/19 12:40 Intake & Output 06/12/19 06/13/19 06/14/19 06:59 06:59 06:59 Intake Total 2160 765 0 Output Total 675 1500 Balance 1485 -735 0 Weight 95.3 kg 98.2 kg Physical Exam: General appearance: PRESENT: no acute distress, cooperative, obese Head exam: PRESENT: atraumatic, normocephalic Eye exam: PRESENT: EOMI Ear exam: PRESENT: normal external ear exam Mouth exam: PRESENT: neck supple Neck exam: ABSENT: tracheal deviation Respiratory exam: PRESENT: symmetrical, unlabored. ABSENT: accessory muscle use, wheezes Pulses: PRESENT: normal radial pulses, normal dorsalis pedis pulse Vascular exam: PRESENT: normal capillary refill GI/Abdominal exam: ABSENT: distended, firm Extremities exam: PRESENT: full ROM of bilateral shoulders, elbows wrists, knees, hips and ankles without pain Musculoskeletal exam: PRESENT: full ROM, normal inspection of all 4 extremities aside from that noted below. Neurological exam: PRESENT: alert, awake, oriented to person, oriented to place, oriented to time Psychiatric exam: PRESENT: appropriate affect. ABSENT: agitated Focused psych exam: ABSENT: catatonic Skin exam: PRESENT: intact. ABSENT: dry All as above aside from that noted in the HPI and the following: Left lower extremity - Knee effusion has returned since aspiration of ~90 cc of cloudy fluid yesterday. Not as significant as yesterday. -Grossly neurovascular intact to the left lower extremity with intact motor function to EHL FHL gastroc and TA. Additionally sensation intact to DPN SPN sural and tibial nerve. -Compartments soft -No erythema drainage or warmth of the left knee at this time. Skin is intact. Results Laboratory Results: 06/13/19 04:14 06/13/19 04:14 06/13/19 06/13/19 06/13/19 04:14 04:14 08:38 WBC 10.6 H RBC 2.90 L Hgb 7.8 L Hct 24.4 L MCV 84 MCH 27.0 MCHC 32.1 RDW 19.7 H Plt Count 310 Seg Neutrophils % Not Reportable Sodium 135.3 L Potassium 5.0 Chloride 105 Carbon Dioxide 22 Anion Gap 8 BUN 20 Creatinine 0.95 Est GFR ( Amer) > 60 Glucose 121 H Calcium 6.2 L* Magnesium 1.5 L Total Bilirubin 0.4 AST 46 H Alkaline Phosphatase 135 H Total Protein 4.7 L Albumin 2.2 L Blood Type A POSITIVE Antibody Screen NEGATIVE 06/11/19 03:30 Catheterized Urine Urine Culture - Final Enterobacter Cloacae 06/10/19 06/10/19 06/10/19 16:15 16:15 16:15 Creatine Kinase 44 CK-MB (CK-2) 0.74 Troponin I < 0.012 NT-Pro-B Natriuret Pep 285 06/10/19 06/10/19 06/11/19 21:59 21:59 04:12 Creatine Kinase 42 CK-MB (CK-2) 0.54 0.43 Troponin I < 0.012 < 0.012 NT-Pro-B Natriuret Pep 06/11/19 05:18 Creatine Kinase 35 CK-MB (CK-2) Troponin I NT-Pro-B Natriuret Pep Impressions: Extremity Ultrasound 06/10/19 08:15 IMPRESSION: Nonspecific in synovitis in joint effusion with marked synovial thickening. In the differential however is synovial sarcoma. Knee X-Ray 06/10/19 08:15 IMPRESSION: Moderate joint effusion. Osteoarthritic changes as described. No displaced fracture. With the moderate joint effusion occult fracture cannot be excluded. Abdomen/Pelvis CT 06/12/19 00:00 IMPRESSION: Extensive lytic bone lesions without progression. No acute interval change. Assessment & Plan - Diagnosis (1) Effusion, left knee Is this a current diagnosis for this admission?: Yes Plan: - cultures still pending. Will follow - Weight bearing as tolerated, PO/OT to encourage ambulation. The white blood cell count in the aspirate was 30,000. This is not quite as high as we would expect for a infectious etiology but is likely inflammatory in nature. The crystal results are negative for gout or pseudogout however this is not highly sensitive for those etiologies. As long as the cultures come back negative we can consider injection with steroid into the knee. Her knee effusion has returned. I would aspirate again prior to injection Still encourage weightbearing as tolerated and activity as tolerated. Out of bed encouraged with physical therapy. She does have severe osteoarthritis of the left knee and this could be a reactive synovitis. If she is discharged prior to complete lab result, she should see me in the office for further treatment. - Time Time Spent with patient: Less than 15 minutes
[2019-06-13 14:25] LABS: C DIFFICILE GDH NEGATIVE (NEGATIVE)
--- NOTE | 2019-06-13 20:49 | PDOC PROGRESS REPORT ---
Subjective Progress Note for:: 06/13/19 Subjective:: Patient seen by the bedside, urine culture grew Enterobacter,, she was seen by orthopedic over the weekend she underwent arthrocentesis, the white cell count from his angiogram fluid is not high enough to suggest infection probably inflammatory negative crystals. Patient was very weak she was also seen by oncology requested by Dr. Givens, she was transfused with packed red blood cells, she had a low-grade temperature Reason For Visit: HYPOMAGNESIA,HYPOCALCEMIA,KNEE EFFUSION WITH PAIN Physical Exam Vital Signs: Temp Pulse Resp BP Pulse Ox 99.2 F 80 19 118/60 98 06/13/19 18:47 06/13/19 18:47 06/13/19 18:47 06/13/19 18:47 06/13/19 18:47 Intake & Output 06/12/19 06/13/19 06/14/19 06:59 06:59 06:59 Intake Total 2160 765 950 Output Total 675 1500 950 Balance 1485 -735 0 Weight 95.3 kg 98.2 kg General appearance: PRESENT: no acute distress Eye exam: PRESENT: PERRLA Respiratory exam: PRESENT: clear to auscultation loki Cardiovascular exam: PRESENT: +S1, +S2 GI/Abdominal exam: PRESENT: soft Neurological exam: PRESENT: alert Results Laboratory Results: 06/13/19 04:14 06/13/19 04:14 06/13/19 06/13/19 06/13/19 04:14 04:14 08:38 WBC 10.6 H RBC 2.90 L Hgb 7.8 L Hct 24.4 L MCV 84 MCH 27.0 MCHC 32.1 RDW 19.7 H Plt Count 310 Seg Neutrophils % Not Reportable Sodium 135.3 L Potassium 5.0 Chloride 105 Carbon Dioxide 22 Anion Gap 8 BUN 20 Creatinine 0.95 Est GFR ( Amer) > 60 Glucose 121 H Calcium 6.2 L* Magnesium 1.5 L Total Bilirubin 0.4 AST 46 H Alkaline Phosphatase 135 H Total Protein 4.7 L Albumin 2.2 L Blood Type A POSITIVE Antibody Screen NEGATIVE 06/10/19 06/10/19 06/10/19 16:15 16:15 16:15 Creatine Kinase 44 CK-MB (CK-2) 0.74 Troponin I < 0.012 NT-Pro-B Natriuret Pep 285 06/10/19 06/10/19 06/11/19 21:59 21:59 04:12 Creatine Kinase 42 CK-MB (CK-2) 0.54 0.43 Troponin I < 0.012 < 0.012 NT-Pro-B Natriuret Pep 06/11/19 05:18 Creatine Kinase 35 CK-MB (CK-2) Troponin I NT-Pro-B Natriuret Pep Impressions: Extremity Ultrasound 06/10/19 08:15 IMPRESSION: Nonspecific in synovitis in joint effusion with marked synovial thickening. In the differential however is synovial sarcoma. Knee X-Ray 06/10/19 08:15 IMPRESSION: Moderate joint effusion. Osteoarthritic changes as described. No displaced fracture. With the moderate joint effusion occult fracture cannot be excluded. Abdomen/Pelvis CT 06/12/19 00:00 IMPRESSION: Extensive lytic bone lesions without progression. No acute interval change. Assessment & Plan - Diagnosis (1) Hypomagnesemia Is this a current diagnosis for this admission?: Yes (2) Hypocalcemia Is this a current diagnosis for this admission?: Yes (3) Arthropathy of left knee Is this a current diagnosis for this admission?: Yes (4) Gastroenteritis Is this a current diagnosis for this admission?: Yes (5) Urinary tract infection Qualifiers: Urinary tract infection type: site unspecified Hematuria presence: without hematuria Qualified Code(s): N39.0 - Urinary tract infection, site not specified Is this a current diagnosis for this admission?: Yes (6) Multiple myeloma Qualifiers: Multiple myeloma remission status: not in remission Qualified Code(s): C90.00 - Multiple myeloma not having achieved remission Is this a current diagnosis for this admission?: Yes (7) Infection due to Enterobacter cloacae Is this a current diagnosis for this admission?: Yes (8) Anemia Qualifiers: Anemia type: other cause Other causes of anemia: chronic disease, neoplastic Qualified Code(s): D63.0 - Anemia in neoplastic disease Is this a current diagnosis for this admission?: Yes - Time Time Spent with patient: 35 or more minutes Level of Care: TELE
[2019-06-14 06:38] LABS: ANION GAP 7 (5-19); BLOOD UREA NITROGEN 16 mg/dL (7-20); CARBON DIOXIDE 23 mmol/L (22-30); CHLORIDE 105 mmol/L (98-107); GLUCOSE 99 mg/dL (75-110); POTASSIUM 5.4 mmol/L (3.6-5.0)
[2019-06-14 06:45] LABS: CALCIUM 6.2 mg/dL (8.4-10.2)
[2019-06-14] MEDS: PREGABALIN 75 MG CAPSULE PO SCH ×2 (07:00→17:04)
[2019-06-14] MEDS: CARVEDILOL 6.25 MG TABLET PO SCH ×2 (07:00→17:04)
--- NOTE | 2019-06-14 07:56 | PDOC PROGRESS REPORT ---
Subjective Progress Note for:: 06/14/19 Subjective:: Patient much more alert. Sitting up and eating breakfast. Still has some knee pain. Not able to walk yesterday. Diarrhea much improved. Reason For Visit: HYPOMAGNESIA,HYPOCALCEMIA,KNEE EFFUSION WITH PAIN Physical Exam Vital Signs: Temp Pulse Resp BP Pulse Ox 99.1 F 88 18 137/65 H 99 06/14/19 00:26 06/14/19 04:01 06/14/19 04:01 06/14/19 04:01 06/14/19 00:26 Intake & Output 06/13/19 06/14/19 06/15/19 06:59 06:59 06:59 Intake Total 765 1350 Output Total 1500 2150 Balance -735 -800 Weight 98.2 kg 95.3 kg General appearance: PRESENT: no acute distress, obese Head exam: PRESENT: normocephalic Eye exam: PRESENT: EOMI Respiratory exam: PRESENT: unlabored GI/Abdominal exam: PRESENT: soft. ABSENT: tenderness Neurological exam: PRESENT: alert, awake Psychiatric exam: PRESENT: appropriate affect Skin exam: PRESENT: normal color Results Laboratory Results: 06/13/19 04:14 06/14/19 05:04 06/13/19 06/14/19 08:38 05:04 Sodium 135.0 L Potassium 5.4 H Chloride 105 Carbon Dioxide 23 Anion Gap 7 BUN 16 Creatinine 0.82 Est GFR ( Amer) > 60 Glucose 99 Calcium 6.2 L* Blood Type A POSITIVE Antibody Screen NEGATIVE 06/10/19 06/10/19 06/10/19 16:15 16:15 16:15 Creatine Kinase 44 CK-MB (CK-2) 0.74 Troponin I < 0.012 NT-Pro-B Natriuret Pep 285 06/10/19 06/10/19 06/11/19 21:59 21:59 04:12 Creatine Kinase 42 CK-MB (CK-2) 0.54 0.43 Troponin I < 0.012 < 0.012 NT-Pro-B Natriuret Pep 06/11/19 05:18 Creatine Kinase 35 CK-MB (CK-2) Troponin I NT-Pro-B Natriuret Pep Impressions: Extremity Ultrasound 06/10/19 08:15 IMPRESSION: Nonspecific in synovitis in joint effusion with marked synovial thickening. In the differential however is synovial sarcoma. Knee X-Ray 06/10/19 08:15 IMPRESSION: Moderate joint effusion. Osteoarthritic changes as described. No displaced fracture. With the moderate joint effusion occult fracture cannot be excluded. Abdomen/Pelvis CT 06/12/19 00:00 IMPRESSION: Extensive lytic bone lesions without progression. No acute interval change. Assessment & Plan - Diagnosis (1) Diarrhea Qualifiers: Diarrhea type: unspecified type Qualified Code(s): R19.7 - Diarrhea, unspecified Is this a current diagnosis for this admission?: Yes Plan: Improving. Believed to be due to myeloma medications. These have been on hold for several weeks. (2) Hypocalcemia Is this a current diagnosis for this admission?: Yes Plan: Will need Ca replacement in order to continue her Xgeva injections. She has been started on oral Ca, but may also require IV Ca. I will defer to PCP. (3) Anemia Qualifiers: Anemia type: other cause Other causes of anemia: chronic disease, neoplastic Qualified Code(s): D63.0 - Anemia in neoplastic disease Is this a current diagnosis for this admission?: Yes Plan: s/p 2 units pRBCs. Patient much more alert and BP has improved today. (4) Multiple myeloma Qualifiers: Multiple myeloma remission status: not in remission Qualified Code(s): C90.00 - Multiple myeloma not having achieved remission Is this a current diagnosis for this admission?: Yes Plan: All treatment currently on hold. - Time Time Spent with patient: 15-24 minutes
[2019-06-14] MEDS: POTASSI CL 20 MEQ/D5-1/4NS 1L 1,000 ML IV PRN (08:43)
[2019-06-14] MEDS ORDERED: DEXAMETHASONE 4 MG TABLET PO SCH (10:00)
[2019-06-14] MEDS: CALCIUM CARBONATE 500 MG TABLET PO SCH ×2 (11:13→17:04)
[2019-06-14] MEDS: ACYCLOVIR 200 MG CAPSULE PO SCH ×2 (11:13→22:22)
[2019-06-14] MEDS: COLCHICINE 0.6 MG TABLET PO SCH ×2 (11:14→22:22)
[2019-06-14] MEDS: ENOXAPARIN SODIUM INJ 40 MG/0.4 ML DISP.SYRIN SUBCUT SCH (11:14)
[2019-06-14] MEDS: CEFEPIME 1 GM/D5W RTU 1 GM/50 ML RTUPB IV SCH ×3 (11:15→22:21)
[2019-06-14] MEDS: CLOPIDOGREL BISULFATE 75 MG TABLET PO SCH (11:15)
[2019-06-14] MEDS: OXYCODONE-ACETAMINOPHEN 5-325 MG TABLET PO PRN (14:43)
--- NOTE | 2019-06-14 23:04 | PDOC PROGRESS REPORT ---
Subjective Progress Note for:: 06/14/19 Subjective:: Patient seen by the bedside, she was seen by physical therapy not yet ambulating, corrected calcium for albumin is about 8.2, she is given a dose of calcium Gluconate Reason For Visit: HYPOMAGNESIA,HYPOCALCEMIA,KNEE EFFUSION WITH PAIN Physical Exam Vital Signs: Temp Pulse Resp BP Pulse Ox 99.0 F 90 19 159/69 H 98 06/14/19 12:00 06/14/19 14:00 06/14/19 12:00 06/14/19 12:00 06/14/19 12:00 Intake & Output 06/13/19 06/14/19 06/15/19 06:59 06:59 06:59 Intake Total 765 2350 430 Output Total 1500 2150 400 Balance -735 200 30 Weight 98.2 kg 95.3 kg General appearance: PRESENT: no acute distress Eye exam: PRESENT: PERRLA Respiratory exam: PRESENT: clear to auscultation loki Cardiovascular exam: PRESENT: +S1 Results Laboratory Results: 06/13/19 04:14 06/14/19 05:04 06/14/19 05:04 Sodium 135.0 L Potassium 5.4 H Chloride 105 Carbon Dioxide 23 Anion Gap 7 BUN 16 Creatinine 0.82 Est GFR ( Amer) > 60 Glucose 99 Calcium 6.2 L* 06/10/19 06/10/19 06/10/19 16:15 16:15 16:15 Creatine Kinase 44 CK-MB (CK-2) 0.74 Troponin I < 0.012 NT-Pro-B Natriuret Pep 285 06/10/19 06/10/19 06/11/19 21:59 21:59 04:12 Creatine Kinase 42 CK-MB (CK-2) 0.54 0.43 Troponin I < 0.012 < 0.012 NT-Pro-B Natriuret Pep 06/11/19 05:18 Creatine Kinase 35 CK-MB (CK-2) Troponin I NT-Pro-B Natriuret Pep Impressions: Extremity Ultrasound 06/10/19 08:15 IMPRESSION: Nonspecific in synovitis in joint effusion with marked synovial thickening. In the differential however is synovial sarcoma. Knee X-Ray 06/10/19 08:15 IMPRESSION: Moderate joint effusion. Osteoarthritic changes as described. No displaced fracture. With the moderate joint effusion occult fracture cannot be excluded. Abdomen/Pelvis CT 06/12/19 00:00 IMPRESSION: Extensive lytic bone lesions without progression. No acute interval change. Assessment & Plan - Diagnosis (1) Hypomagnesemia Is this a current diagnosis for this admission?: Yes (2) Hypocalcemia Is this a current diagnosis for this admission?: Yes (3) Arthropathy of left knee Is this a current diagnosis for this admission?: Yes (4) Gastroenteritis Is this a current diagnosis for this admission?: Yes (5) Urinary tract infection Qualifiers: Urinary tract infection type: site unspecified Hematuria presence: without hematuria Qualified Code(s): N39.0 - Urinary tract infection, site not specified Is this a current diagnosis for this admission?: Yes (6) Multiple myeloma Qualifiers: Multiple myeloma remission status: not in remission Qualified Code(s): C90.00 - Multiple myeloma not having achieved remission Is this a current diagnosis for this admission?: Yes (7) Infection due to Enterobacter cloacae Is this a current diagnosis for this admission?: Yes (8) Anemia Qualifiers: Anemia type: other cause Other causes of anemia: chronic disease, neoplastic Qualified Code(s): D63.0 - Anemia in neoplastic disease Is this a current diagnosis for this admission?: Yes - Time Time Spent with patient: 35 or more minutes
[2019-06-15] MEDS ORDERED: CALCIUM GLUCONATE 1,000 MG in DEXTROSE 5%-WATER 50 ML IV ONE (03:15)
[2019-06-15] MEDS ORDERED: CALCIUM GLUCONATE 1000 MG/10 ML INJ IV ONE (03:31)
[2019-06-15] MEDS ORDERED: LIDOCAINE 1% INJ-PF (10 MG/ML) 30 ML SDV ONE (06:28)
[2019-06-15] MEDS ORDERED: METHYLPREDNISOLONE INJ 125 MG/2 ML SDV ONE (07:23)
[2019-06-15] MEDS ORDERED: LOPERAMIDE HCL 2 MG CAPSULE PO PRN (08:10)
--- NOTE | 2019-06-15 08:12 | PDOC PROGRESS REPORT ---
Subjective Progress Note for:: 06/15/19 Subjective:: Patient feeling better. Caregiver remains at bedside. Ortho performed another joint aspiration and steroid injection. They are hopeful this will help. She is still having diarrhea. Reason For Visit: HYPOMAGNESIA,HYPOCALCEMIA,KNEE EFFUSION WITH PAIN Physical Exam Vital Signs: Temp Pulse Resp BP Pulse Ox 98.1 F 78 18 139/62 H 94 06/14/19 23:30 06/14/19 23:30 06/14/19 23:30 06/14/19 23:30 06/14/19 23:30 Intake & Output 06/14/19 06/15/19 06/16/19 06:59 06:59 06:59 Intake Total 2350 480 Output Total 2150 700 Balance 200 -220 Weight 95.3 kg General appearance: PRESENT: no acute distress, obese Head exam: PRESENT: normocephalic Respiratory exam: PRESENT: unlabored Neurological exam: PRESENT: alert, awake Psychiatric exam: PRESENT: appropriate affect Skin exam: PRESENT: normal color Results Laboratory Results: 06/13/19 04:14 06/14/19 05:04 06/14/19 23:19 Ionized Calcium Sindy 1.00 L 06/11/19 06:30 Synovial Fluid - Left Knee Gram Stain - Final 06/11/19 06:30 Synovial Fluid - Left Knee Body Fluid Culture - Final NO AEROBIC OR ANAEROBIC ORGANISMS RECOVERED 06/10/19 06/10/19 06/10/19 16:15 16:15 16:15 Creatine Kinase 44 CK-MB (CK-2) 0.74 Troponin I < 0.012 NT-Pro-B Natriuret Pep 285 06/10/19 06/10/19 06/11/19 21:59 21:59 04:12 Creatine Kinase 42 CK-MB (CK-2) 0.54 0.43 Troponin I < 0.012 < 0.012 NT-Pro-B Natriuret Pep 06/11/19 05:18 Creatine Kinase 35 CK-MB (CK-2) Troponin I NT-Pro-B Natriuret Pep Impressions: Extremity Ultrasound 06/10/19 08:15 IMPRESSION: Nonspecific in synovitis in joint effusion with marked synovial thickening. In the differential however is synovial sarcoma. Knee X-Ray 06/10/19 08:15 IMPRESSION: Moderate joint effusion. Osteoarthritic changes as described. No displaced fracture. With the moderate joint effusion occult fracture cannot be excluded. Abdomen/Pelvis CT 06/12/19 00:00 IMPRESSION: Extensive lytic bone lesions without progression. No acute interval change. Assessment & Plan - Diagnosis (1) Diarrhea Qualifiers: Diarrhea type: unspecified type Qualified Code(s): R19.7 - Diarrhea, unspecified Is this a current diagnosis for this admission?: Yes Plan: C. dif was negative. She has colestid ordered but I don't believe she is receiving this. Will add imodium PRN. May consider pnacreatic enzymes. (2) Hypocalcemia Is this a current diagnosis for this admission?: Yes Plan: oral and IV Ca has been given. Await repeat levels. (3) Anemia Qualifiers: Anemia type: other cause Other causes of anemia: chronic disease, neoplastic Qualified Code(s): D63.0 - Anemia in neoplastic disease Is this a current diagnosis for this admission?: Yes Plan: Await repeat CBC. s/p blood transfusion. (4) Multiple myeloma Qualifiers: Multiple myeloma remission status: not in remission Qualified Code(s): C90.00 - Multiple myeloma not having achieved remission Is this a current diagnosis for this admission?: Yes Plan: All treatment currently on hold. - Time Time Spent with patient: Less than 15 minutes
[2019-06-15] MEDS: CARVEDILOL 6.25 MG TABLET PO SCH ×2 (08:13→17:56)
[2019-06-15] MEDS: PREGABALIN 75 MG CAPSULE PO SCH ×2 (08:13→17:56)
--- NOTE | 2019-06-15 08:28 | PDOC PROGRESS REPORT ---
Subjective Progress Note for:: 06/15/19 Subjective:: No change overnight in regards to symptoms. Still somewhat improved from prior aspiration. Swelling appears to have decreased according to her and her sister who is at bedside. She has been out of bed but minimally. Reason For Visit: HYPOMAGNESIA,HYPOCALCEMIA,KNEE EFFUSION WITH PAIN Physical Exam Vital Signs: Temp Pulse Resp BP Pulse Ox 98.4 F 71 18 137/52 H 96 06/15/19 05:31 06/15/19 05:31 06/14/19 23:30 06/15/19 05:31 06/15/19 05:31 Intake & Output 06/14/19 06/15/19 06/16/19 06:59 06:59 06:59 Intake Total 2350 480 Output Total 2150 700 Balance 200 -220 Weight 95.3 kg Physical Exam: General appearance: PRESENT: no acute distress, cooperative, obese Head exam: PRESENT: atraumatic, normocephalic Eye exam: PRESENT: EOMI Ear exam: PRESENT: normal external ear exam Mouth exam: PRESENT: neck supple Neck exam: ABSENT: tracheal deviation Respiratory exam: PRESENT: symmetrical, unlabored. ABSENT: accessory muscle use, wheezes Pulses: PRESENT: normal radial pulses, normal dorsalis pedis pulse Vascular exam: PRESENT: normal capillary refill GI/Abdominal exam: ABSENT: distended, firm Extremities exam: PRESENT: full ROM of bilateral shoulders, elbows wrists, knees, hips and ankles without pain Musculoskeletal exam: PRESENT: full ROM, normal inspection of all 4 extremities aside from that noted below. Neurological exam: PRESENT: alert, awake, oriented to person, oriented to place, oriented to time Psychiatric exam: PRESENT: appropriate affect. ABSENT: agitated Focused psych exam: ABSENT: catatonic Skin exam: PRESENT: intact. ABSENT: dry All as above aside from that noted in the HPI and the following: Left lower extremity - Knee effusion has improved. Not as significant as yesterday. -Grossly neurovascular intact to the left lower extremity with intact motor function to EHL FHL gastroc and TA. Additionally sensation intact to DPN SPN sural and tibial nerve. -Compartments soft -No erythema drainage or warmth of the left knee at this time. Skin is intact. Results Laboratory Results: 06/13/19 04:14 06/14/19 05:04 06/14/19 23:19 Ionized Calcium Sindy 1.00 L 06/11/19 06:30 Synovial Fluid - Left Knee Gram Stain - Final 06/11/19 06:30 Synovial Fluid - Left Knee Body Fluid Culture - Final NO AEROBIC OR ANAEROBIC ORGANISMS RECOVERED 06/10/19 06/10/19 06/10/19 16:15 16:15 16:15 Creatine Kinase 44 CK-MB (CK-2) 0.74 Troponin I < 0.012 NT-Pro-B Natriuret Pep 285 06/10/19 06/10/19 06/11/19 21:59 21:59 04:12 Creatine Kinase 42 CK-MB (CK-2) 0.54 0.43 Troponin I < 0.012 < 0.012 NT-Pro-B Natriuret Pep 06/11/19 05:18 Creatine Kinase 35 CK-MB (CK-2) Troponin I NT-Pro-B Natriuret Pep Impressions: Extremity Ultrasound 06/10/19 08:15 IMPRESSION: Nonspecific in synovitis in joint effusion with marked synovial thickening. In the differential however is synovial sarcoma. Knee X-Ray 06/10/19 08:15 IMPRESSION: Moderate joint effusion. Osteoarthritic changes as described. No displaced fracture. With the moderate joint effusion occult fracture cannot be excluded. Abdomen/Pelvis CT 06/12/19 00:00 IMPRESSION: Extensive lytic bone lesions without progression. No acute interval change. Assessment & Plan - Diagnosis (1) Effusion, left knee Is this a current diagnosis for this admission?: Yes Plan: - Cultures were final negative. This is likely a reactive knee effusion to osteoarthritis. - Procedure: After discussing risks and benefits of aspiration and injection, as well as alternatives and answering all questions, the patient provided informed verbal consent. The skin was cleaned with an alcohol prep pad and an 18g needle was inserted into the lateral suprapatellar pouch, approximately 40 cc of straw, semi-cloudly fluid was removed (same appearance as before). This was followed with an injection of 4cc of 2% lidocaine and 120mg of methylprednisolone. The site was covered with a band aid. She tolerated it well. - Injection should help with pain and ability to perform PT/OT - Encourage OOB - She may follow with me in my office with any further issues or concerns. - Time Time Spent with patient: 15-24 minutes
[2019-06-15] MEDS ORDERED: METHYLPREDNISOLONE INJ 125 MG/2 ML SDV INJ ONE (08:30)
[2019-06-15] MEDS: CALCIUM CARBONATE 500 MG TABLET PO SCH ×2 (09:28→17:57)
[2019-06-15] MEDS: CLOPIDOGREL BISULFATE 75 MG TABLET PO SCH (09:28)
[2019-06-15] MEDS: COLCHICINE 0.6 MG TABLET PO SCH ×2 (09:29→21:49)
[2019-06-15] MEDS: ACYCLOVIR 200 MG CAPSULE PO SCH ×2 (09:30→21:48)
[2019-06-15] MEDS: ENOXAPARIN SODIUM INJ 40 MG/0.4 ML DISP.SYRIN SUBCUT SCH (09:31)
[2019-06-15] MEDS: CEFEPIME 1 GM/D5W RTU 1 GM/50 ML RTUPB IV SCH ×2 (09:34→21:47)
[2019-06-15 09:50] LABS: ALBUMIN 2.5 g/dL (3.5-5.0); ALKALINE PHOSPHATASE 170 U/L (38-126); ANION GAP 9 (5-19); ASPARTATE AMINO TRANSFERASE 36 U/L (14-36); BILIRUBIN,DIRECT 0.2 mg/dL (0.0-0.4); BILIRUBIN,TOTAL 0.4 mg/dL (0.2-1.3); BLOOD UREA NITROGEN 16 mg/dL (7-20); CALCIUM 7.2 mg/dL (8.4-10.2); CARBON DIOXIDE 21 mmol/L (22-30); CHLORIDE 106 mmol/L (98-107); GLUCOSE 191 mg/dL (75-110); TOTAL PROTEIN 5.4 g/dL (6.3-8.2)
--- NOTE | 2019-06-15 21:40 | PDOC PROGRESS REPORT ---
Subjective Progress Note for:: 06/15/19 Subjective:: Patient seen by the bedside,She has not been seen today by PT Reason For Visit: HYPOMAGNESIA,HYPOCALCEMIA,KNEE EFFUSION WITH PAIN Physical Exam Vital Signs: Temp Pulse Resp BP Pulse Ox 98.5 F 79 23 H 149/65 H 88 L 06/15/19 17:40 06/15/19 17:40 06/15/19 17:40 06/15/19 17:40 06/15/19 17:40 Intake & Output 06/14/19 06/15/19 06/16/19 06:59 06:59 06:59 Intake Total 2350 480 530 Output Total 2150 700 650 Balance 200 -220 -120 Weight 95.3 kg General appearance: PRESENT: no acute distress Eye exam: PRESENT: PERRLA Respiratory exam: PRESENT: clear to auscultation loki Cardiovascular exam: PRESENT: +S1, +S2 Results Laboratory Results: 06/13/19 04:14 06/15/19 09:17 06/14/19 06/15/19 23:19 09:17 Sodium 136.2 L Potassium 5.0 Chloride 106 Carbon Dioxide 21 L Anion Gap 9 BUN 16 Creatinine 0.79 Est GFR ( Amer) > 60 Glucose 191 H Calcium 7.2 L Ionized Calcium Sindy 1.00 L Total Bilirubin 0.4 AST 36 Alkaline Phosphatase 170 H Total Protein 5.4 L Albumin 2.5 L 06/10/19 18:33 Blood Blood Culture - Final NO GROWTH IN 5 DAYS 06/10/19 18:07 Blood Blood Culture - Final NO GROWTH IN 5 DAYS 06/11/19 06:30 Synovial Fluid - Left Knee Gram Stain - Final 06/11/19 06:30 Synovial Fluid - Left Knee Body Fluid Culture - Final NO AEROBIC OR ANAEROBIC ORGANISMS RECOVERED 06/10/19 06/10/19 06/10/19 16:15 16:15 16:15 Creatine Kinase 44 CK-MB (CK-2) 0.74 Troponin I < 0.012 NT-Pro-B Natriuret Pep 285 06/10/19 06/10/19 06/11/19 21:59 21:59 04:12 Creatine Kinase 42 CK-MB (CK-2) 0.54 0.43 Troponin I < 0.012 < 0.012 NT-Pro-B Natriuret Pep 06/11/19 05:18 Creatine Kinase 35 CK-MB (CK-2) Troponin I NT-Pro-B Natriuret Pep Impressions: Extremity Ultrasound 06/10/19 08:15 IMPRESSION: Nonspecific in synovitis in joint effusion with marked synovial thickening. In the differential however is synovial sarcoma. Knee X-Ray 06/10/19 08:15 IMPRESSION: Moderate joint effusion. Osteoarthritic changes as described. No displaced fracture. With the moderate joint effusion occult fracture cannot be excluded. Abdomen/Pelvis CT 06/12/19 00:00 IMPRESSION: Extensive lytic bone lesions without progression. No acute interval change. Assessment & Plan - Diagnosis (1) Hypomagnesemia Is this a current diagnosis for this admission?: Yes (2) Hypocalcemia Is this a current diagnosis for this admission?: Yes (3) Arthropathy of left knee Is this a current diagnosis for this admission?: Yes (4) Gastroenteritis Is this a current diagnosis for this admission?: Yes (5) Urinary tract infection Qualifiers: Urinary tract infection type: site unspecified Hematuria presence: without hematuria Qualified Code(s): N39.0 - Urinary tract infection, site not specified Is this a current diagnosis for this admission?: Yes (6) Multiple myeloma Qualifiers: Multiple myeloma remission status: not in remission Qualified Code(s): C90.00 - Multiple myeloma not having achieved remission Is this a current diagnosis for this admission?: Yes (7) Infection due to Enterobacter cloacae Is this a current diagnosis for this admission?: Yes (8) Anemia Qualifiers: Anemia type: other cause Other causes of anemia: chronic disease, neoplastic Qualified Code(s): D63.0 - Anemia in neoplastic disease Is this a current diagnosis for this admission?: Yes - Time Time Spent with patient: 35 or more minutes - Plan Summary Plan Summary: She will continue present management hopefully discharge home soon
[2019-06-15] MEDS: OXYCODONE-ACETAMINOPHEN 5-325 MG TABLET PO PRN (21:47)
[2019-06-15 21:54] LABS: HEMATOCRIT 32.7 % (36.0-47.0); MEAN CORPUSCULAR HEMOGLOBIN 27.4 pg (27.0-33.4); MEAN CORPUSCULAR HGB CONC 33.1 g/dL (32.0-36.0); MEAN CORPUSCULAR VOLUME 83 fl (80-97); PLATELET COUNT 356 10^3/uL (150-450); RED BLOOD COUNT 3.94 10^6/uL (3.72-5.28); RED CELL DISTRIBUTION WIDTH 18.2 % (11.5-14.0)
[2019-06-15 21:56] LABS: HEMOGLOBIN 10.8 g/dL (12.0-15.5)
[2019-06-15 22:06] LABS: ALBUMIN 2.5 g/dL (3.5-5.0); ALKALINE PHOSPHATASE 169 U/L (38-126); ANION GAP 8 (5-19); ASPARTATE AMINO TRANSFERASE 61 U/L (14-36); BILIRUBIN,DIRECT 0.2 mg/dL (0.0-0.4); BILIRUBIN,TOTAL 0.4 mg/dL (0.2-1.3); BLOOD UREA NITROGEN 19 mg/dL (7-20); CALCIUM 7.4 mg/dL (8.4-10.2); CARBON DIOXIDE 23 mmol/L (22-30); CHLORIDE 107 mmol/L (98-107); GLUCOSE 144 mg/dL (75-110); POTASSIUM 5.1 mmol/L (3.6-5.0); TOTAL PROTEIN 5.3 g/dL (6.3-8.2)
[2019-06-15 22:35] LABS: ABSOLUTE LYMPHOCYTES# (MANUAL) 0.4 10^3/uL (0.5-4.7); ABSOLUTE MONOCYTES # (MANUAL) 0.2 10^3/uL (0.1-1.4); BASOPHILS % (MANUAL) 0 % (0-2); EOSINOPHILS % (MANUAL) 0 % (0-6); LYMPHOCYTES % (MANUAL) 8 % (13-45); MONOCYTES % (MANUAL) 4 % (3-13); SEGMENTED NEUTROPHILS % (MAN) 88 % (42-78); TOTAL CELLS COUNTED 100
[2019-06-15 22:39] LABS: ANISOCYTOSIS 1+; OVALOCYTES SLIGHT; PLATELET COMMENT ADEQUATE; POIKILOCYTOSIS SLIGHT; SCHISTOCYTES SLIGHT; TOXIC GRANULATION SLIGHT; TOXIC VACUOLATION PRESENT
[2019-06-16] MEDS: OXYCODONE-ACETAMINOPHEN 5-325 MG TABLET PO PRN ×2 (03:45→22:17)
[2019-06-16] MEDS: PREGABALIN 75 MG CAPSULE PO SCH ×2 (05:58→18:27)
[2019-06-16] MEDS: CARVEDILOL 6.25 MG TABLET PO SCH ×2 (05:58→18:27)
[2019-06-16 06:18] LABS: ABSOLUTE BASOPHILS # (AUTO) 0.1 10^3/uL (0.0-0.2); ABSOLUTE LYMPHOCYTES (AUTO) 0.3 10^3/uL (0.5-4.7); ABSOLUTE MONOCYTES (AUTO) 0.4 10^3/uL (0.1-1.4); ABSOLUTE NEUT (AUTO) 4.4 10^3/uL (1.7-8.2); EOSINOPHILS % (AUTO) 0.3 % (0-6); HEMATOCRIT 33.4 % (36.0-47.0); HEMOGLOBIN 11.2 g/dL (12.0-15.5); LYMPHOCYTES % (AUTO) 5.1 % (13-45); MEAN CORPUSCULAR HEMOGLOBIN 27.7 pg (27.0-33.4); MEAN CORPUSCULAR HGB CONC 33.4 g/dL (32.0-36.0); MEAN CORPUSCULAR VOLUME 83 fl (80-97); MONOCYTES % (AUTO) 8.7 % (3-13); PLATELET COUNT 368 10^3/uL (150-450); RED BLOOD COUNT 4.03 10^6/uL (3.72-5.28); RED CELL DISTRIBUTION WIDTH 17.9 % (11.5-14.0); SEGMENTED NEUTROPHILS % (AUTO) 84.9 % (42-78); TOTAL CELLS COUNTED % (AUTO) 100 %; WHITE BLOOD COUNT 5.2 10^3/uL (4.0-10.5)
[2019-06-16 06:27] LABS: ALBUMIN 2.5 g/dL (3.5-5.0); ALKALINE PHOSPHATASE 162 U/L (38-126); ANION GAP 9 (5-19); ASPARTATE AMINO TRANSFERASE 45 U/L (14-36); BILIRUBIN,DIRECT 0.2 mg/dL (0.0-0.4); BILIRUBIN,TOTAL 0.5 mg/dL (0.2-1.3); BLOOD UREA NITROGEN 19 mg/dL (7-20); CALCIUM 7.2 mg/dL (8.4-10.2); CARBON DIOXIDE 23 mmol/L (22-30); CHLORIDE 105 mmol/L (98-107); GLUCOSE 129 mg/dL (75-110); POTASSIUM 5.1 mmol/L (3.6-5.0); TOTAL PROTEIN 5.3 g/dL (6.3-8.2)
[2019-06-16] MEDS: COLCHICINE 0.6 MG TABLET PO SCH ×2 (09:14→22:17)
[2019-06-16] MEDS: CALCIUM CARBONATE 500 MG TABLET PO SCH ×2 (09:15→18:27)
[2019-06-16] MEDS: CLOPIDOGREL BISULFATE 75 MG TABLET PO SCH (09:16)
[2019-06-16] MEDS: ACYCLOVIR 200 MG CAPSULE PO SCH ×2 (09:16→22:17)
[2019-06-16] MEDS: ENOXAPARIN SODIUM INJ 40 MG/0.4 ML DISP.SYRIN SUBCUT SCH (09:17)
[2019-06-16] MEDS: CEFEPIME 1 GM/D5W RTU 1 GM/50 ML RTUPB IV SCH ×2 (09:19→22:17)
--- NOTE | 2019-06-16 18:42 | PDOC PROGRESS REPORT ---
Subjective Subjective:: patient is doing well today. She reports ambulating some yesterday. She does report some improvement in her left knee pain. If she has any further issues shes welcome to follow with me in the office. Reason For Visit: HYPOMAGNESIA,HYPOCALCEMIA,KNEE EFFUSION WITH PAIN Physical Exam Vital Signs: Temp Pulse Resp BP Pulse Ox 97.6 F 66 20 144/79 H 96 06/16/19 12:09 06/16/19 14:00 06/16/19 12:09 06/16/19 12:09 06/16/19 12:09 Intake & Output 06/15/19 06/16/19 06/17/19 06:59 06:59 06:59 Intake Total 480 1700 1390 Output Total 700 1500 300 Balance -646 134 5706 Weight 96.3 kg 96.3 kg Physical Exam: physical exam is essentially unchanged from yesterdays exam aside from slightly less tenderness to the knee and minimal effusion. Shes grossly Norvasc intact or left Loristra manys able to range and meet need today without much pain. Results Laboratory Results: 06/16/19 05:08 06/16/19 05:08 06/15/19 06/15/19 06/16/19 21:40 21:40 05:08 WBC 5.0 5.2 RBC 3.94 4.03 Hgb 10.8 L D 11.2 L Hct 32.7 L 33.4 L MCV 83 83 MCH 27.4 27.7 MCHC 33.1 33.4 RDW 18.2 H 17.9 H Plt Count 356 368 Seg Neutrophils % Not Reportable 84.9 H Sodium 137.7 Potassium 5.1 H Chloride 107 Carbon Dioxide 23 Anion Gap 8 BUN 19 Creatinine 0.82 Est GFR ( Amer) > 60 Glucose 144 H Calcium 7.4 L Total Bilirubin 0.4 AST 61 H Alkaline Phosphatase 169 H Total Protein 5.3 L Albumin 2.5 L 06/16/19 05:08 WBC RBC Hgb Hct MCV MCH MCHC RDW Plt Count Seg Neutrophils % Sodium 136.7 L Potassium 5.1 H Chloride 105 Carbon Dioxide 23 Anion Gap 9 BUN 19 Creatinine 0.72 Est GFR ( Amer) > 60 Glucose 129 H Calcium 7.2 L Total Bilirubin 0.5 AST 45 H Alkaline Phosphatase 162 H Total Protein 5.3 L Albumin 2.5 L 06/10/19 18:33 Blood Blood Culture - Final NO GROWTH IN 5 DAYS 06/10/19 18:07 Blood Blood Culture - Final NO GROWTH IN 5 DAYS 06/10/19 06/10/19 06/10/19 16:15 16:15 16:15 Creatine Kinase 44 CK-MB (CK-2) 0.74 Troponin I < 0.012 NT-Pro-B Natriuret Pep 285 06/10/19 06/10/19 06/11/19 21:59 21:59 04:12 Creatine Kinase 42 CK-MB (CK-2) 0.54 0.43 Troponin I < 0.012 < 0.012 NT-Pro-B Natriuret Pep 06/11/19 05:18 Creatine Kinase 35 CK-MB (CK-2) Troponin I NT-Pro-B Natriuret Pep Impressions: Extremity Ultrasound 06/10/19 08:15 IMPRESSION: Nonspecific in synovitis in joint effusion with marked synovial thickening. In the differential however is synovial sarcoma. Knee X-Ray 06/10/19 08:15 IMPRESSION: Moderate joint effusion. Osteoarthritic changes as described. No displaced fracture. With the moderate joint effusion occult fracture cannot be excluded. Abdomen/Pelvis CT 06/12/19 00:00 IMPRESSION: Extensive lytic bone lesions without progression. No acute i nterval change. Assessment & Plan - Diagnosis (1) Effusion, left knee Is this a current diagnosis for this admission?: Yes Plan: cultures were negative times final culture. Hopefully her injection will continue to provide her some relief. She should be ambulating and getting out of bed as much as possible. If she continues to have for the pain shes welcome to follow me in the clinic on an as needed basis. - Time Time Spent with patient: Less than 15 minutes
--- NOTE | 2019-06-16 20:55 | PDOC PROGRESS REPORT ---
Subjective Progress Note for:: 06/16/19 Subjective:: Patient seen by the bedside she worked with physical therapy today Reason For Visit: HYPOMAGNESIA,HYPOCALCEMIA,KNEE EFFUSION WITH PAIN Physical Exam Vital Signs: Temp Pulse Resp BP Pulse Ox 98.7 F 70 16 127/57 H 98 06/16/19 16:17 06/16/19 16:17 06/16/19 16:17 06/16/19 16:17 06/16/19 16:17 Intake & Output 06/15/19 06/16/19 06/17/19 06:59 06:59 06:59 Intake Total 480 1700 1390 Output Total 700 1500 300 Balance -308 011 7550 Weight 96.3 kg 96.3 kg General appearance: PRESENT: no acute distress Eye exam: PRESENT: PERRLA Respiratory exam: PRESENT: clear to auscultation loki Cardiovascular exam: PRESENT: +S1, +S2 GI/Abdominal exam: PRESENT: soft Neurological exam: PRESENT: alert Results Laboratory Results: 06/16/19 05:08 06/16/19 05:08 06/15/19 06/15/19 06/16/19 21:40 21:40 05:08 WBC 5.0 5.2 RBC 3.94 4.03 Hgb 10.8 L D 11.2 L Hct 32.7 L 33.4 L MCV 83 83 MCH 27.4 27.7 MCHC 33.1 33.4 RDW 18.2 H 17.9 H Plt Count 356 368 Seg Neutrophils % Not Reportable 84.9 H Sodium 137.7 Potassium 5.1 H Chloride 107 Carbon Dioxide 23 Anion Gap 8 BUN 19 Creatinine 0.82 Est GFR ( Amer) > 60 Glucose 144 H Calcium 7.4 L Total Bilirubin 0.4 AST 61 H Alkaline Phosphatase 169 H Total Protein 5.3 L Albumin 2.5 L 06/16/19 05:08 WBC RBC Hgb Hct MCV MCH MCHC RDW Plt Count Seg Neutrophils % Sodium 136.7 L Potassium 5.1 H Chloride 105 Carbon Dioxide 23 Anion Gap 9 BUN 19 Creatinine 0.72 Est GFR ( Amer) > 60 Glucose 129 H Calcium 7.2 L Total Bilirubin 0.5 AST 45 H Alkaline Phosphatase 162 H Total Protein 5.3 L Albumin 2.5 L 06/10/19 18:33 Blood Blood Culture - Final NO GROWTH IN 5 DAYS 06/10/19 18:07 Blood Blood Culture - Final NO GROWTH IN 5 DAYS 06/10/19 06/10/19 06/10/19 16:15 16:15 16:15 Creatine Kinase 44 CK-MB (CK-2) 0.74 Troponin I < 0.012 NT-Pro-B Natriuret Pep 285 06/10/19 06/10/19 06/11/19 21:59 21:59 04:12 Creatine Kinase 42 CK-MB (CK-2) 0.54 0.43 Troponin I < 0.012 < 0.012 NT-Pro-B Natriuret Pep 06/11/19 05:18 Creatine Kinase 35 CK-MB (CK-2) Troponin I NT-Pro-B Natriuret Pep Impressions: Extremity Ultrasound 06/10/19 08:15 IMPRESSION: Nonspecific in synovitis in joint effusion with marked synovial t hickening. In the differential however is synovial sarcoma. Knee X-Ray 06/10/19 08:15 IMPRESSION: Moderate joint effusion. Osteoarthritic changes as described. No displaced fracture. With the moderate joint effusion occult fracture cannot be excluded. Abdomen/Pelvis CT 06/12/19 00:00 IMPRESSION: Extensive lytic bone lesions without progression. No acute interval change. Assessment & Plan - Diagnosis (1) Hypomagnesemia Is this a current diagnosis for this admission?: Yes (2) Hypocalcemia Is this a current diagnosis for this admission?: Yes (3) Arthropathy of left knee Is this a current diagnosis for this admission?: Yes (4) Gastroenteritis Is this a current diagnosis for this admission?: Yes (5) Urinary tract infection Qualifiers: Urinary tract infection type: site unspecified Hematuria presence: without hematuria Qualified Code(s): N39.0 - Urinary tract infection, site not specified Is this a current diagnosis for this admission?: Yes (6) Multiple myeloma Qualifiers: Multiple myeloma remission status: not in remission Qualified Code(s): C90.00 - Multiple myeloma not having achieved remission Is this a current diagnosis for this admission?: Yes (7) Infection due to Enterobacter cloacae Is this a current diagnosis for this admission?: Yes (8) Anemia Qualifiers: Anemia type: other cause Other causes of anemia: chronic disease, neoplastic Qualified Code(s): D63.0 - Anemia in neoplastic disease Is this a current diagnosis for this admission?: Yes - Time Time Spent with patient: 35 or more minutes Level of Care: IMCU
[2019-06-17] MEDS: PREGABALIN 75 MG CAPSULE PO SCH ×2 (06:43→17:42)
[2019-06-17] MEDS: CARVEDILOL 6.25 MG TABLET PO SCH ×2 (06:43→17:43)
--- NOTE | 2019-06-17 08:22 | PDOC PROGRESS REPORT ---
Subjective Progress Note for:: 06/17/19 Subjective:: Patient states that she is feeling much better. She was able to walk in the [place] yesterday. Pain has greatly improved. Reason For Visit: HYPOMAGNESIA,HYPOCALCEMIA,KNEE EFFUSION WITH PAIN Physical Exam Vital Signs: Temp Pulse Resp BP Pulse Ox 98.4 F 71 20 136/54 H 97 06/17/19 00:00 06/17/19 00:00 06/17/19 00:00 06/17/19 00:00 06/17/19 00:00 Intake & Output 06/16/19 06/17/19 06/18/19 06:59 06:59 06:59 Intake Total 1700 1640 Output Total 1500 1440 Balance 200 200 Weight 96.3 kg 94.9 kg General appearance: PRESENT: obese Head exam: PRESENT: normocephalic Respiratory exam: PRESENT: unlabored Neurological exam: PRESENT: alert, awake Psychiatric exam: PRESENT: appropriate affect Skin exam: PRESENT: normal color Results Laboratory Results: 06/16/19 05:08 06/16/19 05:08 06/10/19 06/10/19 06/10/19 16:15 16:15 16:15 Creatine Kinase 44 CK-MB (CK-2) 0.74 Troponin I < 0.012 NT-Pro-B Natriuret Pep 285 06/10/19 06/10/19 06/11/19 21:59 21:59 04:12 Creatine Kinase 42 CK-MB (CK-2) 0.54 0.43 Troponin I < 0.012 < 0.012 NT-Pro-B Natriuret Pep 06/11/19 05:18 Creatine Kinase 35 CK-MB (CK-2) Troponin I NT-Pro-B Natriuret Pep Impressions: Extremity Ultrasound 06/10/19 08:15 IMPRESSION: Nonspecific in synovitis in joint effusion with marked synovial thickening. In the differential however is synovial sarcoma. Knee X-Ray 06/10/19 08:15 IMPRESSION: Moderate joint effusion. Osteoarthritic changes as described. No displaced fracture. With the moderate joint effusion occult fracture cannot be excluded. Abdomen/Pelvis CT 06/12/19 00:00 IMPRESSION: Extensive lytic bone lesions without progression. No acute interval change. Assessment & Plan - Diagnosis (1) Diarrhea Qualifiers: Diarrhea type: unspecified type Qualified Code(s): R19.7 - Diarrhea, unspec ified Is this a current diagnosis for this admission?: Yes Plan: Improving (2) Hypocalcemia Is this a current diagnosis for this admission?: Yes Plan: resolved. (3) Anemia Qualifiers: Anemia type: other cause Other causes of anemia: chronic disease, neoplastic Qualified Code(s): D63.0 - Anemia in neoplastic disease Is this a current diagnosis for this admission?: Yes Plan: improved and stable. (4) Multiple myeloma Qualifiers: Multiple myeloma remission status: not in remission Qualified Code(s): C90.00 - Multiple myeloma not having achieved remission Is this a current diagnosis for this admission?: Yes Plan: Treatment on hold, but will resume as outpatient. - Time Time Spent with patient: Less than 15 minutes - Plan Summary Plan Summary: I will sign off and see patient again as outpatient. Please call if needed.
[2019-06-17] MEDS: CEFEPIME 1 GM/D5W RTU 1 GM/50 ML RTUPB IV SCH ×2 (10:18→21:34)
[2019-06-17] MEDS: COLCHICINE 0.6 MG TABLET PO SCH ×2 (10:21→21:33)
[2019-06-17] MEDS: CLOPIDOGREL BISULFATE 75 MG TABLET PO SCH (10:21)
[2019-06-17] MEDS: CALCIUM CARBONATE 500 MG TABLET PO SCH ×2 (10:21→17:43)
[2019-06-17] MEDS: ENOXAPARIN SODIUM INJ 40 MG/0.4 ML DISP.SYRIN SUBCUT SCH (10:24)
[2019-06-17] MEDS: ACYCLOVIR 200 MG CAPSULE PO SCH (10:24)
[2019-06-17] MEDS: POTASSI CL 20 MEQ/D5-1/4NS 1L 1,000 ML IV PRN (17:46)
--- NOTE | 2019-06-17 21:14 | PDOC PROGRESS REPORT ---
Subjective Progress Note for:: 06/17/19 Subjective:: Patient seen by the bedside, she was able to walk some distance with physical therapy. She will be discharged home in a.m. Reason For Visit: HYPOMAGNESIA,HYPOCALCEMIA,KNEE EFFUSION WITH PAIN Physical Exam Vital Signs: Temp Pulse Resp BP Pulse Ox 98.1 F 77 17 127/67 H 98 06/17/19 15:08 06/17/19 15:08 06/17/19 15:08 06/17/19 15:08 06/17/19 15:08 Intake & Output 06/16/19 06/17/19 06/18/19 06:59 06:59 06:59 Intake Total 1700 1640 710 Output Total 1500 1440 800 Balance 200 200 -90 Weight 96.3 kg 94.9 kg General appearance: PRESENT: no acute distress Eye exam: PRESENT: PERRLA Respiratory exam: PRESENT: clear to auscultation loki Cardiovascular exam: PRESENT: +S1, +S2 GI/Abdominal exam: PRESENT: soft Neurological exam: PRESENT: alert Results Laboratory Results: 06/16/19 05:08 06/16/19 05:08 06/10/19 06/10/19 06/10/19 16:15 16:15 16:15 Creatine Kinase 44 CK-MB (CK-2) 0.74 Troponin I < 0.012 NT-Pro-B Natriuret Pep 285 06/10/19 06/10/19 06/11/19 21:59 21:59 04:12 Creatine Kinase 42 CK-MB (CK-2) 0.54 0.43 Troponin I < 0.012 < 0.012 NT-Pro-B Natriuret Pep 06/11/19 05:18 Creatine Kinase 35 CK-MB (CK-2) Troponin I NT-Pro-B Natriuret Pep Impressions: Extremity Ultrasound 06/10/19 08:15 IMPRESSION: Nonspecific in synovitis in joint effusion with marked synovial thickening. In the differential however is synovial sarcoma. Knee X-Ray 06/10/19 08:15 IMPRESSION: Moderate joint effusion. Osteoarthritic changes as described. No displaced fracture. With the moderate joint effusion occult fracture cannot be excluded. Abdomen/Pelvis CT 06/12/19 00:00 IMPRESSION: Extensive lytic bone lesions without progression. No acute interval change. Assessment & Plan - Diagnosis (1) Hypomagnesemia Is this a current diagnosis for this admission?: Yes (2) Hypocalcemia Is this a current diagnosis for this admission?: Yes (3) Arthropathy of left knee Is this a current diagnosis for this admission?: Yes (4) Gastroenteritis Is this a current diagnosis for this admission?: Yes (5) Urinary tract infection Qualifiers: Urinary tract infection type: site unspecified Hematuria presence: without hematuria Qualified Code(s): N39.0 - Urinary tract infection, site not specif ied Is this a current diagnosis for this admission?: Yes (6) Multiple myeloma Qualifiers: Multiple myeloma remission status: not in remission Qualified Code(s): C90.00 - Multiple myeloma not having achieved remission Is this a current diagnosis for this admission?: Yes (7) Infection due to Enterobacter cloacae Is this a current diagnosis for this admission?: Yes (8) Anemia Qualifiers: Anemia type: other cause Other causes of anemia: chronic disease, ne oplastic Qualified Code(s): D63.0 - Anemia in neoplastic disease Is this a current diagnosis for this admission?: Yes - Time Time Spent with patient: 25-34 minutes Level of Care: IMCU
[2019-06-18] MEDS: PREGABALIN 75 MG CAPSULE PO SCH (05:00)
[2019-06-18] MEDS: CARVEDILOL 6.25 MG TABLET PO SCH (05:00)
[2019-06-18] MEDS: ENOXAPARIN SODIUM INJ 40 MG/0.4 ML DISP.SYRIN SUBCUT SCH (10:55)
[2019-06-18] MEDS: COLCHICINE 0.6 MG TABLET PO SCH (10:55)
[2019-06-18] MEDS: CALCIUM CARBONATE 500 MG TABLET PO SCH (10:55)
[2019-06-18] MEDS: CLOPIDOGREL BISULFATE 75 MG TABLET PO SCH (10:55)
--- NOTE | 2019-06-18 12:38 | PDOC DISCHARGE SUMMARY ---
Impression - Admit/DC Date/PCP Admission Date/Primary Care Provider: 06/10/19 12:31 JUAN CALDERON MD Discharge Date: 06/18/19 - Discharge Diagnosis (1) Gastroenteritis Is this a current diagnosis for this admission?: Yes (2) Infection due to Enterobacter cloacae Is this a current diagnosis for this admission?: Yes (3) Hypomagnesemia Is this a current diagnosis for this admission?: Yes (4) Hypocalcemia Is this a current diagnosis for this admission?: Yes (5) Arthropathy of left knee Is this a current diagnosis for this admission?: Yes (6) Urinary tract infection Is this a current diagnosis for this admission?: Yes (7) Multiple myeloma Is this a current diagnosis for this admission?: Yes (8) Anemia Is this a current diagnosis for this admission?: Yes - Additional Information Resuscitation Status: Full Code Referrals: ELISE GARNETT MD [ACTIVE STAFF] - 06/20/19 10:45 am (within 2 weeks. Please call office to schedule. ) JUAN CALDERON MD [Primary Care Provider] - 06/27/19 10:15 am Prescriptions: RX: Colchicine [Colcrys 0.6 mg Tablet] 0.6 mg PO Q12 #60 tablet RX: Calcium Carbonate [Os-Ruperto 500 mg Tablet (Oyster-Shell)] 500 mg PO BID #60 tablet Home Medications: RX: Acyclovir [Acyclovir 400 mg Tablet] 400 mg PO BID 06/10/19 RX: Carvedilol [Coreg] 25 mg PO Q12 06/10/19 RX: Clopidogrel Bisulfate [Plavix 75 mg Tablet] 75 mg PO DAILY 06/10/19 RX: Colestipol HCl [Colestid 1 gm Tablet] 2 gm PO BID 06/10/19 RX: Dexamethasone [Decadron 4 mg Tablet] 40 mg PO TU@1000 06/10/19 RX: Hydrochlorothiazide [Hydrodiuril 25 mg Tablet] 25 mg PO DAILY 06/10/19 RX: Montelukast Sodium [Singulair 10 mg Tablet] 10 mg PO DAILY 06/10/19 RX: Omeprazole 20 mg PO DAILY 06/10/19 RX: Ondansetron HCl [Zofran 8 mg Tablet] 8 mg PO Q8HP PRN 06/10/19 RX: Oxycodone HCl/Acetaminophen [Percocet 5-325 mg Tablet] 1 tab PO Q4HP PRN 06/10/19 RX: Potassium Chloride [Klor-Con 10 Meq Capsule ER] 20 meq PO DAILY 06/10/19 RX: Pravastatin Sodium [Pravachol] 40 mg PO QHS 06/10/19 RX: Pregabalin [Lyrica 75 mg Capsule] 75 mg PO Q12 06/10/19 RX: Promethazine HCl [Phenergan 25 mg Tablet] 25 mg PO Q6HP PRN 06/10/19 RX: Calcium Carbonate [Os-Ruperto 500 mg Tablet (Oyster-Shell)] 500 mg PO BID #60 tablet 06/18/19 RX: Colchicine [Colcrys 0.6 mg Tablet] 0.6 mg PO Q12 #60 tablet 06/18/19 History of Present Illiness History of Present Illness: REGULO HINES is a 78 year old female,, She has history of multiple myeloma recently diagnosed, coronary artery disease, she was admitted when she came to the emergency room for evaluation of leg pain, and also left knee pain. In the emergency room when she was evaluated the patient's sister stated that patient has had diarrhea for the past 1 week, there was a remote history of fall and that she injured her left knee. In the emergency room the left knee was swollen, the evaluation was done in the ER demonstrated severe hypomagnesemia, hypokalemia, the x-ray of the knee was consistent with effusion of the knee she was also found to have hypocalcemia, this is probably related to management of the hypercalcemia of malignancy related to the multiple myeloma.Hospital admission was advised because of the constellation of electrolyte ,acid-base derangement including hypomagnesemia, hypokalemia, hypocalcemia.I also noticed the patient while talking to her to have involuntary twitching of the torso, patient's sister said this is new since she was started on chemotherapy for her multiple myeloma, patient functional status has also been fluctuating since diagnosed with multiple myeloma there are days she function well and some times she has very poor function with poor mobility and limited ability to perform activities of daily living Hospital Course Hospital Course: Patient was admitted for the management of acute gastroenteritis, hypomagnesemia, hypokalemia, hypocalcemia, urinary tract infection due to Enterobacter species, left knee arthropathy with a background of multiple myeloma. She was treated with IV fluid, the electrolytes were corrected including magnesium, potassium she also had doses of calcium. The calcium was corrected for low serum albumin. She had left knee swelling she was seen by orthopedic, underwent arthrocentesis the cell count was consistent with inflammatory arthritis, there was no crystal demonstrated from the synovial fluid, the cell count was not consistent with septic arthritis. She was very deconditioned, she was seen by physical therapy. Patient condition is improving enough for discharge home today she was also seen by oncology on this admission. Physical Exam Vital Signs: Temp Pulse Resp BP Pulse Ox 98.3 F 83 17 135/67 H 98 06/18/19 11:23 06/18/19 11:23 06/18/19 11:23 06/18/19 11:23 06/18/19 11:23 Intake & Output 06/17/19 06/18/19 06/19/19 06:59 06:59 06:59 Intake Total 1640 1250 Output Total 1440 2160 Balance 200 -910 Weight 94.9 kg 95.2 kg General appearance: PRESENT: no acute distress Eye exam: PRESENT: PERRLA Respiratory exam: PRESENT: clear to auscultation loki Cardiovascular exam: PRESENT: +S1, +S2 Neurological exam: PRESENT: alert Results Laboratory Results: WBC 5.2 10^3/uL (4.0-10.5) 06/16/19 05:08 RBC 4.03 10^6/uL (3.72-5.28) 06/16/19 05:08 Hgb 11.2 g/dL (12.0-15.5) L 06/16/19 05:08 Hct 33.4 % (36.0-47.0) L 06/16/19 05:08 MCV 83 fl (80-97) 06/16/19 05:08 MCH 27.7 pg (27.0-33.4) 06/16/19 05:08 MCHC 33.4 g/dL (32.0-36.0) 06/16/19 05:08 RDW 17.9 % (11.5-14.0) H 06/16/19 05:08 Plt Count 368 10^3/uL (150-450) 06/16/19 05:08 Lymph % (Auto) 5.1 % (13-45) L 06/16/19 05:08 [place] % (Auto) 8.7 % (3-13) 06/16/19 05:08 Eos % (Auto) 0.3 % (0-6) 06/16/19 05:08 Baso % (Auto) 1.0 % (0-2) 06/16/19 05:08 Absolute Neuts (auto) 4.4 10^3/uL (1.7-8.2) 06/16/19 05:08 Absolute Lymphs (auto) 0.3 10^3/uL (0.5-4.7) L 06/16/19 05:08 Absolute Monos (auto) 0.4 10^3/uL (0.1-1.4) 06/16/19 05:08 Absolute Eos (auto) 0.0 10^3/uL (0.0-0.6) 06/16/19 05:08 Absolute Basos (auto) 0.1 10^3/uL (0.0-0.2) 06/16/19 05:08 Total Counted 100 06/15/19 21:40 Seg Neutrophils % 84.9 % (42-78) H 06/16/19 05:08 Seg Neuts % (Manual) 88 % (42-78) H 06/15/19 21:40 Band Neutrophils % 4 % (3-5) 06/13/19 04:14 Lymphocytes % (Manual) 8 % (13-45) L 06/15/19 21:40 Monocytes % (Manual) 4 % (3-13) 06/15/19 21:40 Eosinophils % (Manual) 0 % (0-6) 06/15/19 21:40 Basophils % (Manual) 0 % (0-2) 06/15/19 21:40 Abs Neuts (Manual) 4.4 10^3/uL (1.7-8.2) 06/15/19 21:40 Abs Lymphs (Manual) 0.4 10^3/uL (0.5-4.7) L 06/15/19 21:40 Abs Monocytes (Manual) 0.2 10^3/uL (0.1-1.4) 06/15/19 21:40 Absolute Eos (Manual) 0.0 10^3/uL (0.0-0.6) 06/15/19 21:40 Abs Basophils (Manual) 0.0 10^3/uL (0.0-0.2) 06/15/19 21:40 Toxic Granulation SLIGHT 06/15/19 21:40 Toxic Vacuolation PRESENT 06/15/19 21:40 Platelet Estimate Cancelled 06/11/19 04:12 Platelet Comment ADEQUATE 06/15/19 21:40 Hypochromasia 1+ 06/12/19 05:30 Poikilocytosis SLIGHT 06/15/19 21:40 Anisocytosis 1+ 06/15/19 21:40 Tear Drop Cells 1+ 06/11/19 05:18 Ovalocytes SLIGHT 06/15/19 21:40 Erik Cells SLIGHT 06/11/19 05:18 Schistocytes SLIGHT 06/15/19 21:40 PT 16.8 SEC (11.4-15.4) H 06/10/19 21:59 INR 1.35 06/10/19 21:59 INR (Anticoag Therapy) Cancelled 06/10/19 18:33 APTT 34.2 SEC (23.5-35.8) 06/10/19 21:59 Sodium 136.7 mmol/L (137-145) L 06/16/19 05:08 Potassium 5.1 mmol/L (3.6-5.0) H 06/16/19 05:08 Chloride 105 mmol/L (98-107) 06/16/19 05:08 Carbon Dioxide 23 mmol/L (22-30) 06/16/19 05:08 Anion Gap 9 (5-19) 06/16/19 05:08 BUN 19 mg/dL (7-20) 06/16/19 05:08 Creatinine 0.72 mg/dL (0.52-1.25) 06/16/19 05:08 Est GFR ( Amer) > 60 (>60) 06/16/19 05:08 Est GFR (MDRD) Non-Af > 60 (>60) 06/16/19 05:08 Glucose 129 mg/dL (75-110) H 06/16/19 05:08 Hemoglobin A1c % 5.8 % (4.7-6.0) 06/11/19 05:18 Lactic Acid 0.9 mmol/L (0.7-2.1) 06/12/19 09:19 Uric Acid 5.5 mg/dL (2.5-7.5) 06/10/19 16:15 Calcium 7.2 mg/dL (8.4-10.2) L 06/16/19 05:08 Ionized Calcium Sindy 1.00 mmol/L (1.14-1.30) L 06/14/19 23:19 Magnesium 1.5 mg/dL (1.6-2.3) L 06/13/19 04:14 Total Bilirubin 0.5 mg/dL (0.2-1.3) 06/16/19 05:08 Direct Bilirubin 0.2 mg/dL (0.0-0.4) 06/16/19 05:08 Neonat Total Bilirubin Not Reportable 06/16/19 05:08 Neonat Direct Bilirubin Not Reportable 06/16/19 05:08 Neonat Indirect Bili Not Reportable 06/16/19 05:08 AST 45 U/L (14-36) H 06/16/19 05:08 ALT 66 U/L (<35) 06/16/19 05:08 Alkaline Phosphatase 162 U/L (38-126) H 06/16/19 05:08 Ammonia < 8.7 umol/L (9-33) L 06/10/19 21:59 Creatine Kinase 35 U/L (30-135) 06/11/19 05:18 CK-MB (CK-2) 0.43 ng/mL (<4.55) 06/11/19 04:12 Troponin I < 0.012 ng/mL 06/11/19 04:12 NT-Pro-B Natriuret Pep 285 pg/mL (<450) 06/10/19 16:15 Total Protein 5.3 g/dL (6.3-8.2) L 06/16/19 05:08 Albumin 2.5 g/dL (3.5-5.0) L 06/16/19 05:08 Triglycerides 104 mg/dL (<150) 06/11/19 05:18 Cholesterol 117.83 mg/dL (0-200) 06/11/19 05:18 LDL Cholesterol Direct 42 mg/dL (<100) 06/11/19 05:18 VLDL Cholesterol 21.0 mg/dL (10-31) 06/11/19 05:18 HDL Cholesterol 46 mg/dL (>40) 06/11/19 05:18 Amylase < 30 U/L (30-110) L 06/10/19 16:15 Lipase 38.1 U/L (23-300) 06/10/19 16:15 TSH 0.39 uIU/mL (0.47-4.68) L 06/10/19 16:15 Free T4 1.87 ng/dL (0.78-2.19) 06/10/19 16:15 PTH Intact 457.6 pg/mL (10.0-65.0) H 06/11/19 15:15 Urine Color YELLOW 06/11/19 03:30 Urine Appearance SLIGHTLY-CLOUDY 06/11/19 03:30 Urine pH 5.0 (5.0-9.0) 06/11/19 03:30 Ur Specific [place] 1.020 06/11/19 03:30 Urine Protein NEGATIVE mg/dL (NEGATIVE) 06/11/19 03:30 Urine Glucose (UA) NEGATIVE mg/dL (NEGATIVE) 06/11/19 03:30 Urine Ketones NEGATIVE mg/dL (NEGATIVE) 06/11/19 03:30 Urine Blood NEGATIVE (NEGATIVE) 06/11/19 03:30 Urine Nitrite NEGATIVE (NEGATIVE) 06/11/19 03:30 Urine Bilirubin NEGATIVE (NEGATIVE) 06/11/19 03:30 Urine Urobilinogen NEGATIVE mg/dL (<2.0) 06/11/19 03:30 Ur Leukocyte Esterase LARGE (NEGATIVE) H 06/11/19 03:30 Urine WBC (Auto) 13 /HPF 06/11/19 03:30 Urine RBC (Auto) 18 /HPF 06/11/19 03:30 Urine Bacteria (Auto) 3+ /HPF 06/11/19 03:30 Squamous Epi Cells Auto 2 /HPF 06/11/19 03:30 Urine Mucus (Auto) RARE /LPF 06/11/19 03:30 Urine Ascorbic Acid NEGATIVE (NEGATIVE) 06/11/19 03:30 Fluid Type SYNOVIAL 06/11/19 06:30 Fluid Type SYNOVIAL 06/11/19 06:30 Fluid Source KNEE 06/11/19 06:30 Fluid Color YELLOW 06/11/19 06:30 Fluid Appearance CLOUDY 06/11/19 06:30 Fluid Viscosity MODERATELY VISCOUS 06/11/19 06:30 Fluid WBC 16225 /uL 06/11/19 06:30 Fluid RBC 0 /uL 06/11/19 06:30 Fluid Seg Neutrophils 94 % 06/11/19 06:30 Fluid Lymphocytes 0 % 06/11/19 06:30 Fluid Monocytes 6 % 06/11/19 06:30 Fluid Eosinophils 0 % 06/11/19 06:30 Fluid Basophils 0 % 06/11/19 06:30 Fluid Crystals NONE OBSERVED 06/11/19 06:30 Fluid Crystal Source LEFT KNEE 06/11/19 06:30 Ca Pyrophosphate Cryst NONE OBSERVED 06/11/19 06:30 Synov Monosodium Urate NONE OBSERVED 06/11/19 06:30 Stl C. Difficile GDH Ag NEGATIVE (NEGATIVE) 06/13/19 13:00 Stl C.difficile Tox A&B NEGATIVE (NEGATIVE) 06/13/19 13:00 Slides for Path Review Cancelled 06/11/19 04:12 Blood Type A POSITIVE 06/13/19 08:38 Antibody Screen NEGATIVE 06/13/19 08:38 Crossmatch See Detail 06/13/19 08:38 06/10/19 06/10/19 06/10/19 16:15 16:15 21:59 CK-MB (CK-2) 0.74 0.54 Troponin I < 0.012 < 0.012 NT-Pro-B Natriuret Pep 285 06/11/19 04:12 CK-MB (CK-2) 0.43 Troponin I < 0.012 NT-Pro-B Natriuret Pep Impressions: Extremity Ultrasound 06/10/19 08:15 IMPRESSION: Nonspecific in synovitis in joint effusion with marked synovial thickening. In the differential however is synovial sarcoma. Knee X-Ray 06/10/19 08:15 IMPRESSION: Moderate joint effusion. Osteoarthritic changes as described. No displaced fracture. With the moderate joint effusion occult fracture cannot be excluded. Abdomen/Pelvis CT 06/12/19 00:00 IMPRESSION: Extensive lytic bone lesions without progression. No acute interval change. Stroke Is this a Stroke Patient?: No Acute Heart Failure - Is this a Heart Failure Patient?: No
[2019-06-18 15:08] VITALS: BP 113/47
== END 2019-06-18 17:18 | disposition home health service (06) | DRG 392 ==
LOC: ER 07:19 → EH 12:31 → 4S 15:19
PROVIDERS: ADMIT Internal Medicine; ATTEND Internal Medicine
PROC: 30233N1 Transfusion of Nonautologous Red Blood Cells into Peripheral Vein, Percutaneous Approach (ICD-10-PCS; principal; 2019-06-13)
DX: K52.9 Noninfective gastroenteritis and colitis, unspecified (principal); C90.00 Multiple myeloma not having achieved remission; N39.0 Urinary tract infection, site not specified; E83.42 Hypomagnesemia; E83.51 Hypocalcemia; M17.12 Unilateral primary osteoarthritis, left knee; B96.89 Other specified bacterial agents as the cause of diseases classified elsewhere; I25.10 Atherosclerotic heart disease of native coronary artery without angina pectoris; E78.5 Hyperlipidemia, unspecified; F32.9 Major depressive disorder, single episode, unspecified; I10 Essential (primary) hypertension; E87.6 Hypokalemia; M25.462 Effusion, left knee; D63.0 Anemia in neoplastic disease; X58.XXXA Exposure to other specified factors, initial encounter; E78.00 Pure hypercholesterolemia, unspecified; Z79.891 Long term (current) use of opiate analgesic; Z79.899 Other long term (current) drug therapy; Z80.42 Family history of malignant neoplasm of prostate
CPT/HCPCS: 36415; 36430; 74176; 76882; 80048; 80053; 80061; 80076; 81001; 82140; 82150; 82330; 82550; 82553; 83036; 83605; 83690; 83735; 83880; 83970; 84439; 84443; 84484; 84550; 85025; 85610; 85730; 86850; 86900; 86901; 86920; 87040; 87070; 87075; 87086; 87088; 87186; 87205; 87324; 87449; 89050; 89060; 93005; 93010; 93970; 96365; 96366; 96375; 99285; J0610; J0692; J1650; J2270; J2930; J3301; J3370; J3475; J3480; J3490; J7030; J7060; J8540; P9016

== ENCOUNTER 2019-06-19 01:45 | Emergency (ER) | payer MEDICARE ==
--- NOTE | 2019-06-19 03:00 | ER Document Report ---
ED General - General Information source: Patient, Relative TRAVEL OUTSIDE OF THE [place] IN LAST 30 DAYS: No <SHEBA TEIXEIRA - Last Filed: 06/19/19 05:53> <SANGPATRICIA CODIE - Last Filed: 06/19/19 13:39> - General Chief Complaint: Weakness Stated Complaint: WEAKNESS Time Seen by Provider: 06/19/19 02:05 Primary Care Provider: JUAN CALDERON MD [Primary Care Provider] - Follow up as needed Notes: This 78-year-old woman presents to the emergency department with a history of multiple myeloma and recent hospitalizations. She was discharged 06/18/2019 at approximately 7 PM. The daughter notes that she found her mother on the floor and she was very weak and unable to lift herself or stand because of weakness in her legs. The patient notes that her legs feel heavy as if she can barely move them (SHEBA TEIXEIRA) - Related Data Allergies/Adverse Reactions: No Known Allergies Allergy (Verified 06/10/19 07:48) Past Medical History - General Information source: Patient, Relative - Social History Smoking Status: Unknown if Ever Smoked Chew tobacco use (# tins/day): No Frequency of alcohol use: None Drug Abuse: None Family History: Reviewed & Not Pertinent Patient has suicidal ideation: No Patient has homicidal ideation: No - Past Medical History Cardiac Medical History: Reports: Hx Coronary Artery Disease, Hx Hypercholesterolemia, Hx Hypertension Denies: Hx Heart Attack Pulmonary Medical History: Denies: Hx Asthma, Hx Bronchitis, Hx COPD, Hx Pneumonia Neurological Medical History: Denies: Hx Cerebrovascular Accident, Hx Seizures Musculoskeletal Medical History: Reports Hx Arthritis Psychiatric Medical History: Reports: Hx Depression Past Surgical History: Reports: Hx Cholecystectomy, Hx Hysterectomy. Denies: Hx Pacemaker - Immunizations Hx Diphtheria, Pertussis, Tetanus Vaccination: No Hx Pneumococcal Vaccination: 05/03/15 <SHEBA TEIXEIRA - Last Filed: 06/19/19 05:53> Review of Systems <SHEBA TEIXEIRA - Last Filed: 06/19/19 05:53> - Review of Systems Notes: Constitutional: Negative for fever. HENT: Negative for sore throat. Eyes: Negative for visual changes. Cardiovascular: Negative for chest pain. Respiratory: Negative for shortness of breath. Gastrointestinal: Negative for abdominal pain, vomiting or diarrhea. Genitourinary: Negative for dysuria. Musculoskeletal: + weakness of the legs bilateral Skin: Negative for rash. Neurological: Negative for headaches, weakness or numbness. 10 point ROS negative except as marked above and in HPI. (SHEBA TEIXEIRA) Physical Exam <SHEBA TEIXEIRA - Last Filed: 06/19/19 05:53> - Vital signs Vitals: Resp 22 H 06/19/19 02:04 - Notes Notes: Reviewed vital signs and nursing note as charted by RN. CONSTITUTIONAL: Chronically ill appearing elderly woman complaining of weakness in her legs. HEENT: Normocephalic; atraumatic; No swelling, PERRL; Conjunctivae clear, no drainage; EOMI, External ears without lesions; External auditory canal is patent; Pharynx without erythema or lesions, no tonsillar hypertrophy, airway patent, mucous membranes pink and moist NECK: Supple, no JVD or bruits CARD: Regular rate and rhythm; no murmurs, no rubs, no gallops, no chest wall tenderness RESP: Clear, no wheezes rales or rhonchi ABD/GI: Normal bowel sounds; non-distended; soft, non-tender, no rebound, no guarding, no palpable organomegaly EXT: No edema clubbing or cyanosis SKIN: Warm and dry NEURO: Alert and oriented x3, focal weakness bilateral lower extremities, unable to lift her legs against gravity. 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 (SHEBA TEIXEIRA) Course - Laboratory Result Diagrams: 06/19/19 02:24 06/19/19 02:24 <SHEBA TEIXEIRA - Last Filed: 06/19/19 05:53> - Laboratory Result Diagrams: 06/19/19 02:24 06/19/19 02:24 <PATRICIA DOMÍNGUEZ IV - Last Filed: 06/19/19 13:39> - Re-evaluation Re-evalutation: 06/19/19 06:05 Dr. Calderon was called, states that he would like case management to be consulted and the patient's case was with regards to rehab placement. He is willing to readmit the patient if that is the most effective way to get it done however, he would like to have the input from the hospital case management pe [facility]. Once that consultation has been obtained, he would like to be recontacted. 06/19/19 06:20 The patient care was turned over to Dr Domínguez, he will follow-up with Dr. Calderon once a case customer management specialist has been contacted. (SHEBA TEIXEIRA) 06/19/19 13:35 Patient discussed with [facility] with case management. She has been able to arrange transfer of the patient to [facility] for SNF rehab. Dr. Calderon is aware of transfer. Dr. Craven has been consulted; oncology treatment with be withheld for one week until pt follows up with her regular oncologist in one week. (PATRICIA DOMÍNGUEZ IV) - Vital Signs Vital signs: Temp Pulse Resp BP Pulse Ox 97.5 F 75 18 165/76 H 98 06/19/19 04:13 06/19/19 08:00 06/19/19 08:00 06/19/19 08:00 06/19/19 08:00 - Laboratory Laboratory results interpreted by me: 06/19/19 06/19/19 02:24 02:24 Hgb 11.8 L RDW 17.9 H Plt Count 457 H Lymph % (Auto) 9.3 L Seg Neutrophils % 80.5 H Sodium 136.4 L Calcium 7.9 L Magnesium 1.3 L Alkaline Phosphatase 132 H Total Protein 6.1 L Albumin 2.9 L Discharge <SHEBA TEIXEIRA - Last Filed: 06/19/19 05:53> <PATRICIA DOMÍNGUEZ IV - Last Filed: 06/19/19 13:39> - Discharge Clinical Impression: Weakness, Essential (primary) hypertension Multiple myeloma Qualifiers: Multiple myeloma remission status: unspecified Qualified Code(s): C90.00 - Multiple myeloma not having achieved remission Condition: Fair Disposition: HOME-SNF (ED ONLY) Referrals: JUAN CALDERON MD [Primary Care Provider] - Follow up as needed
[2019-06-19 03:32] LABS: ALBUMIN 2.9 g/dL (3.5-5.0); ALKALINE PHOSPHATASE 132 U/L (38-126); ANION GAP 5 (5-19); ASPARTATE AMINO TRANSFERASE 25 U/L (14-36); BILIRUBIN,DIRECT 0.2 mg/dL (0.0-0.4); BILIRUBIN,TOTAL 0.5 mg/dL (0.2-1.3); BLOOD UREA NITROGEN 14 mg/dL (7-20); CALCIUM 7.9 mg/dL (8.4-10.2); CARBON DIOXIDE 25 mmol/L (22-30); CHLORIDE 106 mmol/L (98-107); GLUCOSE 101 mg/dL (75-110); PHOSPHORUS 2.5 mg/dL (2.5-4.5); POTASSIUM 4.3 mmol/L (3.6-5.0); TOTAL PROTEIN 6.1 g/dL (6.3-8.2)
[2019-06-19 03:42] LABS: ABSOLUTE BASOPHILS # (AUTO) 0.1 10^3/uL (0.0-0.2); ABSOLUTE EOSINOPHILS # (AUTO) 0.1 10^3/uL (0.0-0.6); ABSOLUTE LYMPHOCYTES (AUTO) 0.6 10^3/uL (0.5-4.7); ABSOLUTE MONOCYTES (AUTO) 0.5 10^3/uL (0.1-1.4); ABSOLUTE NEUT (AUTO) 5.4 10^3/uL (1.7-8.2); BASOPHILS % (AUTO) 0.8 % (0-2); EOSINOPHILS % (AUTO) 1.8 % (0-6); HEMATOCRIT 36.6 % (36.0-47.0); HEMOGLOBIN 11.8 g/dL (12.0-15.5); LYMPHOCYTES % (AUTO) 9.3 % (13-45); MEAN CORPUSCULAR HGB CONC 32.3 g/dL (32.0-36.0); MEAN CORPUSCULAR VOLUME 84 fl (80-97); MONOCYTES % (AUTO) 7.6 % (3-13); PLATELET COUNT 457 10^3/uL (150-450); RED BLOOD COUNT 4.37 10^6/uL (3.72-5.28); RED CELL DISTRIBUTION WIDTH 17.9 % (11.5-14.0); SEGMENTED NEUTROPHILS % (AUTO) 80.5 % (42-78); TOTAL CELLS COUNTED % (AUTO) 100 %; WHITE BLOOD COUNT 6.7 10^3/uL (4.0-10.5)
[2019-06-19 04:46] LABS: APPEARANCE,URINE CLEAR; BILIRUBIN,URINE NEGATIVE (NEGATIVE); COLOR,URINE STRAW; GLUCOSE, URINE NEGATIVE (NEGATIVE); KETONES,URINE NEGATIVE (NEGATIVE); LEUKOCYTE ESTERASE,URINE NEGATIVE (NEGATIVE); NITRITE,URINE NEGATIVE (NEGATIVE); PROTEIN,URINE NEGATIVE (NEGATIVE); URINE SPECIFIC GRAVITY 1.004; UROBILINOGEN,URINE NEGATIVE mg/dL (<2.0)
[2019-06-19 18:12] VITALS: BP 156/66
== END 2019-06-19 16:45 ==
LOC: ER 01:45
DX: C90.00 Multiple myeloma not having achieved remission (principal); R53.1 Weakness; I10 Essential (primary) hypertension; I25.10 Atherosclerotic heart disease of native coronary artery without angina pectoris
CPT/HCPCS: 36415; 80053; 81001; 83605; 83735; 84100; 85025; 99285

== ENCOUNTER 2019-07-05 09:01 | Outpatient (CLI) | payer MEDICARE ==
[~2019-07-05 09:01] MED LIST: CALCIUM GLUCONATE 2,000 MG in DEXTROSE 5%-WATER 100 ML IV PRN; MAGNESIUM SULFATE 4 GM/D5W 100 ML IV PRN
[2019-07-05] MEDS ORDERED: NORMAL SALINE 250 ML IV PRN (10:00)
[2019-07-05 11:07] VITALS: BP 125/53
== END 2019-07-05 16:01 | disposition home or self-care (01) ==
LOC: II 09:01 → 5TH 09:09 → II 16:01
PROVIDERS: ATTEND Internal Medicine
DX: E83.42 Hypomagnesemia (principal); E83.51 Hypocalcemia
CPT/HCPCS: 96365; 96366; 96367; J3475; J0610; J7060

== ENCOUNTER → 2019-09-01 | Outpatient (CLI) | payer MEDICARE ==
--- NOTE | 2019-09-01 15:12 | RADIOLOGY REPORT (SQ) ---
EXAM DESCRIPTION: KNEE BILATERAL 1-2 VIEWS COMPLETED DATE/TIME: 09/01/2019 2:34 pm REASON FOR STUDY: BILATERAL PRIMARY OSTEOARTHRITIS OF KNEE M17.0 BILATERAL PRIMARY OSTEOARTHRITIS O F KNEE COMPARISON: None. NUMBER OF VIEWS: Two views. TECHNIQUE: AP and lateral bilateral knees. LIMITATIONS: None. FINDINGS: MINERALIZATION: Normal. LEFT KNEE BONES: No acute fracture. No worrisome bone lesions. MEDIAL COMPARTMENT: Marginal osteophytes. Marked joint space narrowing with subchondral sclerosis. No chondrocalcinosis. LATERAL COMPARTMENT: No significant osteophytes. No joint space narrowing. No chondrocalcinosis. PATELLOFEMORAL COMPARTMENT: Small trochlear osteophytes. No joint space narrowing. No chondrocal cinosis. RIGHT KNEE BONES: No acute fracture. No worrisome bone lesions. MEDIAL COMPARTMENT: Marginal osteophytes. Mild joint space narrowing. No chondrocalcinosis. LATERAL COMPARTMENT: Marginal osteophytes. Marked joint space narrowing. Subchondral sclerosis. No chondrocalcinosis. PATELLOFEMORAL COMPARTMENT: No significant osteophytes. No joint space narrowing. No chondrocalc inosis. IMPRESSION: Degenerative joint disease in the right knee in the medial and lateral compartments, lat eral more than medial. Degenerative joint disease in the left knee in the medial joint compartment a nd to a mild degree the patellofemoral compartment. TECHNICAL DOCUMENTATION: JOB ID: [id number]- All Rights Reserved Reading location - IP/workstation name: [email or web address]
== END ==
LOC: OD 13:15
PROVIDERS: ATTEND Internal Medicine
DX: M17.0 Bilateral primary osteoarthritis of knee (principal)

== ENCOUNTER 2019-10-03 20:01 | Inpatient (IN) | payer MEDICARE ==
[2019-10-03 21:39] LABS: ABSOLUTE EOSINOPHILS # (AUTO) 0.1 10^3/uL (0.0-0.6); ABSOLUTE LYMPHOCYTES (AUTO) 1.1 10^3/uL (0.5-4.7); ABSOLUTE MONOCYTES (AUTO) 0.3 10^3/uL (0.1-1.4); ABSOLUTE NEUT (AUTO) 2.8 10^3/uL (1.7-8.2); MEAN CORPUSCULAR HEMOGLOBIN 28.6 pg (27.0-33.4); MONOCYTES % (AUTO) 7.2 % (3-13); TOTAL CELLS COUNTED % (AUTO) 100 %; WHITE BLOOD COUNT 4.5 10^3/uL (4.0-10.5)
[2019-10-03 21:40] LABS: PROTHROMBIN TIME 17.2 SEC (11.4-15.4)
[2019-10-03 21:47] LABS: ALBUMIN 3.3 g/dL (3.5-5.0); ALKALINE PHOSPHATASE 60 U/L (38-126); ANION GAP 6 (5-19); ASPARTATE AMINO TRANSFERASE 21 U/L (14-36); BILIRUBIN,TOTAL 0.4 mg/dL (0.2-1.3); BLOOD UREA NITROGEN 24 mg/dL (7-20); CALCIUM 8.9 mg/dL (8.4-10.2); CARBON DIOXIDE 28 mmol/L (22-30); CHLORIDE 107 mmol/L (98-107); GLUCOSE 94 mg/dL (75-110); POTASSIUM 4.1 mmol/L (3.6-5.0); TOTAL PROTEIN 5.5 g/dL (6.3-8.2)
[2019-10-03 21:52] LABS: HEMATOCRIT 39.1 % (36.0-47.0); HEMOGLOBIN 12.7 g/dL (12.0-15.5); LYMPHOCYTES % (AUTO) 25.8 % (13-45); MEAN CORPUSCULAR HGB CONC 32.4 g/dL (32.0-36.0); MEAN CORPUSCULAR VOLUME 88 fl (80-97); PLATELET COUNT 185 10^3/uL (150-450); RED BLOOD COUNT 4.43 10^6/uL (3.72-5.28); RED CELL DISTRIBUTION WIDTH 17.5 % (11.5-14.0)
--- NOTE | 2019-10-03 22:17 | ER Document Report ---
Entered by ANNA ZARAGOZA SCRIBE 10/03/19 0805 Acting as scribe for:PARTH PATE DO ED General - General Chief Complaint: Rectal Bleeding Stated Complaint: RECTAL BLEEDING Time Seen by Provider: 10/03/19 21:11 Information source: Patient, Relative - Sister Notes: 79-year-old female with h/o htn, multiple myeloma, hld, deconditioning presents with sister to the emergency department with rectal bleeding that has worsened this morning. Patient's sister describes that earlier this morning patients stool was mixed with blood but now it is only blood. Patient reports diarrhea since January (9 months ago) with blood every once in awhile. Patient states that this episode is worse and is not going away. Patient reports abdominal pain that is better now. Patient denies cough, rhinorrhea, dizziness and lightheadedness. Patient remarks that her legs "feel tight" and are swollen. Patient recently was on Plavix but was stopped due to a blood clot in her leg. Patient was started on Xarelto and aspirin a month ago. Patient uses a walker for assistance. TRAVEL OUTSIDE OF THE [place] IN LAST 30 DAYS: No - Related Data Allergies/Adverse Reactions: No Known Allergies Allergy (Verified 06/10/19 07:48) Past Medical History - General Information source: Patient, Relative - Sister - Social History Smoking Status: Never Smoker Cigarette use (# per day): No Chew tobacco use (# tins/day): No Family History: Reviewed & Not Pertinent Patient has suicidal ideation: No Patient has homicidal ideation: No - Past Medical History Cardiac Medical History: Reports: Hx Coronary Artery Disease, Hx Hypercholesterolemia, Hx Hypertension Musculoskeletal Medical History: Reports Hx Arthritis Psychiatric Medical History: Reports: Hx Depression Past Surgical History: Reports: Hx Cholecystectomy, Hx Coronary Stent - X1 (2005), Hx Hysterectomy - Immunizations Hx Diphtheria, Pertussis, Tetanus Vaccination: No Hx Pneumococcal Vaccination: 05/03/15 Review of Systems - Review of Systems Constitutional: No symptoms reported EENT: See HPI. denies: Nose discharge Cardiovascular: See HPI. denies: Dizziness, Lightheaded Respiratory: See HPI, Cough Gastrointestinal: See HPI, Abdominal pain, Diarrhea Genitourinary: No symptoms reported Female Genitourinary: No symptoms reported Musculoskeletal: See HPI, Leg swelling Skin: No symptoms reported Hematologic/Lymphatic: No symptoms reported Neurological/Psychological: No symptoms reported -: Yes All other systems reviewed and negative Physical Exam - Vital signs Vitals: BP Pulse Ox 117/54 L 100 10/03/19 20:46 10/03/19 20:46 - Notes Notes: General: Alert, appears frail and chronically ill. HEENT: Normocephalic. Atraumatic. PERRL. Extraocular movements intact. Oropharynx clear. Neck: Supple. Non-tender. Respiratory: No respiratory distress. Clear and equal breath sounds bilaterally. Cardiovascular: Regular rate and rhythm. Abdominal: Normal Inspection. Non-tender. No distension. Normal Bowel Sounds. Obese. Back: No gross abnormalities. Extremities: Moves all four extremities. Upper extremities: Normal inspection. Normal ROM. Lower extremities: 2+ edema. Normal ROM. Neurological: Normal cognition. AAOx4. Normal speech. Psychological: Normal affect. Normal Mood. Skin: Warm. Dry. Normal color. Course - Re-evaluation Re-evalutation: 10/03/19 23:44 MDM 79 year old female with MM and htn takes xarelto and is here with rectal bleeding. Discussed with Dr. Bennett and he has graciously agreed to admit the pt. - Vital Signs Vital signs: Temp Pulse Resp BP Pulse Ox 98.5 F 118/56 L 95 10/03/19 23:00 10/04/19 00:01 10/04/19 00:01 - Laboratory Result Diagrams: 10/03/19 21:00 10/03/19 21:00 Laboratory results interpreted by me: 10/03/19 10/03/19 10/03/19 21:00 21:00 21:00 RDW 17.5 H PT 17.2 H BUN 24 H Total Protein 5.5 L Albumin 3.3 L - Diagnostic Test Radiology reviewed: Reports reviewed - EKG Interpretation by Me EKG shows normal: Sinus rhythm Rhythm: NSR - NSR left axis 72 BPM LBBB Repolarization abnromality without st elevation or depression my interpretation. Discharge - Discharge Clinical Impression: Rectal bleeding, Colitis Multiple myeloma Qualifiers: Multiple myeloma remission status: not in remission Qualified Code(s): C90.00 - Multiple myeloma not having achieved remission Condition: Fair Disposition: ADMITTED INPATIENT Admitting Provider: Sabrina Unit Admitted: [facility] I personally performed the services described in the documentation, reviewed and edited the documentation which was dictated to the scribe in my presence, and it accurately records my words and actions.
--- NOTE | 2019-10-03 22:32 | RADIOLOGY REPORT (SQ) ---
EXAM DESCRIPTION: AP portable chest radiograph CLINICAL HISTORY: 79 years Female, htn COMPARISON: None. FINDINGS: Lungs: Lung volumes are low. No focal consolidation. No definite pneumothorax or pleural effusion. Mediastinum: Heart size is enlarged. Vascular calcifications are noted. Bones: Endplate spondylosis in the thoracic spine. IMPRESSION: Low lung volume chest radiograph with enlargement of the cardiac silhouette. No acute process.
--- NOTE | 2019-10-03 22:59 | RADIOLOGY REPORT (SQ) ---
EXAM DESCRIPTION: CT ABDOMEN PELVIS WITH IV CONTRAST COMPLETED DATE/TME: 10/03/2019 21:28 CLINICAL HISTORY: 79 years Female abd pain/ bleeding. creat 0.81 COMPARISON: 06/12/2019. TECHNIQUE: Contiguous axial images obtained through the abdomen and pelvis following IV contrast. Reformatted images obtained. This exam was performed according to our department optimization program which includes automated exposure control, adjustment of the mA and/or kv according to patient size and/or use of iterative reconstruction technique. FINDINGS: Heterogeneity of the osseous structures with multiple lytic lesions and some areas of sclerosis. Pathologic fractures at T12 and L5. These were present on the previous exam. Vascular calcification including coronary artery calcification. The liver appears unremarkable. The spleen and pancreas appear unremarkable. No adrenal masses. Unremarkable left kidney. There is a low-attenuation lesion in the midpole of the right kidney measuring 2.5 cm. Suspect hemorrhagic cyst as this was vaguely present on the previous examination. This could be further evaluated with ultrasound. The gallbladder is absent. No aneurysmal dilatation of the aorta. No bowel obstruction. The appendix is unremarkable. There is wall thickening in the colon with some adjacent pericolonic inflammatory change suggesting colitis. No free fluid in the pelvis. IMPRESSION: Wall thickening in the colon suggesting colitis. Changes May BE infectious or inflammatory Lytic osseous lesions with pathologic fractures of the spine, similar to the previous Probable hemorrhagic or proteinaceous cyst in the right kidney. This could be further assessed with ultrasound.
[2019-10-03] MEDS ORDERED: PIPERACILLIN/TAZOBACTAM 3.375 GM VIAL IV ONE (23:24)
[2019-10-04 01:28] LABS: PHOSPHORUS 3.2 mg/dL (2.5-4.5)
[2019-10-04 01:48] LABS: FREE T4 (FREE THYROXINE) 1.7 ng/dL (0.78-2.19)
[2019-10-04 02:01] LABS: THYROID STIMULATING HORMONE 0.17 uIU/mL (0.47-4.68)
[2019-10-04] MEDS: NORMAL SALINE 1000 ML 1,000 ML IV PRN ×2 (02:54→17:15)
[2019-10-04 03:13] LABS: INTERNATIONAL RATION (INR) 1.38; PROTHROMBIN TIME 17.1 SEC (11.4-15.4)
[2019-10-04 03:39] LABS: PARTIAL THROMBOPLASTIN TIME 30.5 SEC (23.5-35.8)
[2019-10-04] MEDS: OXYCODONE-ACETAMINOPHEN 5-325 MG TABLET PO PRN ×2 (03:53→07:53)
--- NOTE | 2019-10-04 06:46 | EKG REPORT ---
SEVERITY:- ABNORMAL ECG - SINUS RHYTHM FIRST DEGREE AV BLOCK LBBB INFERIOR INFARCT, OLD ANTEROLATERAL INFARCT, AGE INDETERMINATE : Confirmed by: Abiel Esposito MD 04-Oct-2019 06:46:16
--- NOTE | 2019-10-04 07:25 | PDOC CONSULTATION ---
Consultation Consult Date: 10/04/19 Attending physician:: JUAN CALDERON Provider Consulted: KATIE MICHEL Consult reason:: Blood per rectum History of Present Illness Admission Date/PCP: 10/03/19 23:57 JUAN CALDERON MD History of Present Illness: REGULO HINES is a 79 year old female Resents to the emergency department via ground rescue with reports of blood per rectum. Patient lives with her sister. The sister provides the history and states that the day before she had some dark clots with brown stool, and then the emergency department she had second episode of blood. Patient has a history of diarrhea secondary to side effects of chemotherapy for multiple myeloma. Patient's last colonoscopy was in September [address] Beckham, however report not available in EMR. Patient denies constipation. Denies hematemesis. She has been on blood thinner for superficial DVT in lower extremity. Patient was evaluated in the emergency department with a CT scan of the abdomen and pelvis without oral contrast which suggested possible colitis. An order was placed to consult surgery for GI bleed evaluation. Patient is been hemodynamically stable since admission. Past Medical History Cardiac Medical History: Reports: Coronary Artery Disease, Hyperlipidema, Hypertension Denies: Myocardial Infarction Pulmonary Medical History: Denies: Asthma, Bronchitis, Chronic Obstructive Pulmonary Disease (COPD), Pneumonia Neurological Medical History: Denies: Seizures Musculoskeltal Medical History: Reports: Arthritis Psychiatric Medical History: Reports: Depression Hematology: Reports: Anemia - 2005 Past Surgical History Past Surgical History: Reports: Cholecystectomy, Coronary Stent - X1 (2005), Hysterectomy Denies: Pacemaker Social History Information Source: Relative Smoking Status: Never Smoker Frequency of Alcohol Use: None Hx Recreational Drug Use: No Drugs: None Hx Prescription Drug Abuse: No Family History Family History: None, Reviewed & Not Pertinent Parental Family History Reviewed: No Children Family History Reviewed: No Sibling(s) Family History Reviewed.: No Medication/Allergy Home Medications: Acyclovir [Acyclovir 400 mg Tablet] 400 mg PO BID 06/10/19 Carvedilol [Coreg] 25 mg PO Q12 06/10/19 Clopidogrel Bisulfate [Plavix 75 mg Tablet] 75 mg PO DAILY 06/10/19 Colestipol HCl [Colestid 1 gm Tablet] 2 gm PO BID 06/10/19 Dexamethasone [Decadron 4 mg Tablet] 40 mg PO TU@1000 06/10/19 Hydrochlorothiazide [Hydrodiuril 25 mg Tablet] 25 mg PO DAILY 06/10/19 Montelukast Sodium [Singulair 10 mg Tablet] 10 mg PO DAILY 06/10/19 Omeprazole 20 mg PO DAILY 06/10/19 Ondansetron HCl [Zofran 8 mg Tablet] 8 mg PO Q8HP PRN 06/10/19 Oxycodone HCl/Acetaminophen [Percocet 5-325 mg Tablet] 1 tab PO Q4HP PRN 06/10/19 Potassium Chloride [Klor-Con 10 Meq Tablet ER] 20 meq PO DAILY 06/10/19 Pravastatin Sodium [Pravachol] 40 mg PO QHS 06/10/19 Pregabalin [Lyrica 75 mg Capsule] 75 mg PO Q12 06/10/19 Promethazine HCl [Phenergan 25 mg Tablet] 25 mg PO Q6HP PRN 06/10/19 Calcium Carbonate [Os-Ruperto 500 mg Tablet (Oyster-Shell)] 500 mg PO BID #60 tablet 06/18/19 Colchicine [Colcrys 0.6 mg Tablet] 0.6 mg PO Q12 #60 tablet 06/18/19 Allergies/Adverse Reactions: No Known Allergies Allergy (Verified 06/10/19 07:48) Review of Systems Constitutional: ABSENT: chills, fever(s), headache(s), weight gain, weight loss Eyes: ABSENT: visual disturbances Ears: ABSENT: hearing changes Cardiovascular: ABSENT: chest pain, dyspnea on exertion, edema, orthropnea, palpitations Gastrointestinal: PRESENT: as per HPI Musculoskeletal: PRESENT: other - Generalized edema Physical Exam Vital Signs: Temp Pulse Resp BP Pulse Ox 98.6 F 71 20 149/55 H 96 10/04/19 03:16 10/04/19 03:16 10/04/19 03:16 10/04/19 03:16 10/04/19 03:16 Intake & Output 10/03/19 10/04/19 10/05/19 06:59 06:59 06:59 Output Total 0 Balance 0 Weight 90.5 kg General appearance: PRESENT: no acute distress Head exam: PRESENT: normocephalic Eye exam: PRESENT: EOMI Mouth exam: PRESENT: dry mucosa Respiratory exam: PRESENT: clear to auscultation loki Cardiovascular exam: PRESENT: RRR Pulses: PRESENT: normal carotid pulses, normal radial pulses GI/Abdominal exam: PRESENT: other - Soft, nontender no peritoneal signs no rigidity. Rectal exam: PRESENT: other - Rectal exam performed. No focal masses; some brown stool in the vault. Sphincter tone slightly diminished. Psychiatric exam: PRESENT: appropriate affect Results Laboratory Results: 10/03/19 21:00 10/03/19 21:00 10/03/19 10/03/19 10/03/19 21:00 21:00 21:00 WBC 4.5 RBC 4.43 Hgb 12.7 Hct 39.1 MCV 88 MCH 28.6 MCHC 32.4 RDW 17.5 H Plt Count 185 Seg Neutrophils % 63.0 Sodium 141.0 Potassium 4.1 Chloride 107 Carbon Dioxide 28 Anion Gap 6 BUN 24 H Creatinine 0.81 Est GFR ( Amer) > 60 Glucose 94 Lactic Acid Calcium 8.9 Phosphorus Magnesium Total Bilirubin 0.4 AST 21 Alkaline Phosphatase 60 Total Protein 5.5 L Albumin 3.3 L Amylase Lipase TSH Free T4 Blood Type A POSITIVE Antibody Screen NEGATIVE 10/03/19 10/03/19 10/03/19 21:00 21:00 21:38 WBC RBC Hgb Hct MCV MCH MCHC RDW Plt Count Seg Neutrophils % Sodium Potassium Chloride Carbon Dioxide Anion Gap BUN Creatinine Est GFR ( Amer) Glucose Lactic Acid 1.6 Calcium Phosphorus 3.2 Magnesium 1.6 Total Bilirubin AST Alkaline Phosphatase Total Protein Albumin Amylase 66 Lipase 36.0 TSH 0.17 L Free T4 1.70 Blood Type Antibody Screen 10/03/19 10/04/19 10/04/19 21:00 02:53 02:53 Creatine Kinase < 20 L Troponin I 0.015 < 0.012 Impressions: Chest X-Ray 10/03/19 21:26 IMPRESSION: Low lung volume chest radiograph with enlargement of the cardiac silhouette. No acute process. Abdomen/Pelvis CT 10/03/19 21:28 IMPRESSION: Wall thickening in the colon suggesting colitis. Changes May BE infectious or inflammatory Lytic osseous lesions with pathologic fractures of the spine, similar to the previous Probable hemorrhagic or proteinaceous cyst in the right kidney. This could be further assessed with ultrasound. Assessment & Plan - Diagnosis (1) Rectal bleeding Is this a current diagnosis for this admission?: Yes Plan: Impression: 2 episodes of rectal bleeding, hemodynamically stable. Colonoscopy 2 years ago with uncertain findings. CT scan demonstrating mild colonic wall changes possibly consistent with colitis. Patient does not have an acute abdomen. Recommendations: 1. We will keep n.p.o. on IV fluids. Suggest starting a bowel prep today, in anticipation of colonoscopy tomorrow. 2. I have reviewed the above with patient and patient's sister, and they agree to proceed. (2) Multiple myeloma Qualifiers: Multiple myeloma remission status: not in remission Qualified Code(s): C90.00 - Multiple myeloma not having achieved remission Is this a current diagnosis for this admission?: Yes (3) Colitis Is this a current diagnosis for this admission?: Yes - Time Time Spent: 30 to 50 Minutes Smoking Cessation Education: 3 to 10 minutes Medications reviewed and adjusted accordingly: Yes Anticipated discharge: Home
[2019-10-04] MEDS ORDERED: PEG 3350/NA SULF,BICARB,CL/KCL 4000 ML PO ONE (09:00)
[2019-10-04] MEDS ORDERED: ONDANSETRON HCL INJ/PF 4 MG/2 ML SDV IV PRN (09:47)
--- NOTE | 2019-10-04 20:25 | PDOC H&P ---
History of Present Illness Admission Date/PCP: 10/03/19 23:57 JUAN CALDERON MD History of Present Illness: REGULO HINES is a 79 year old female, Patient is well-known to me, she has a history of ischemic heart disease,, multiple myeloma, she is on Xarelto partly because of history of ischemic heart disease and also partly because she had superficial thrombophlebitis. She came to the emergency room for evaluation of rectal bleeding. In the emergency room CT scan of the pelvis and abdomen was done, it demonstrated thickening of the colon, sigmoid suggestive of colitis but because patient had a rectal bleed while on anticoagulant colonoscopy is indicated to rule out neoplasm especially in this patient with multiple myeloma Past Medical History Cardiac Medical History: Reports: Coronary Artery Disease, Hyperlipidema, Hypertension Musculoskeltal Medical History: Reports: Arthritis Psychiatric Medical History: Reports: Depression Hematology: Reports: Anemia - 2005 Past Surgical History Past Surgical History: Reports: Cholecystectomy, Coronary Stent - X1 (2005), Hysterectomy Social History Smoking Status: Never Smoker Frequency of Alcohol Use: None Hx Recreational Drug Use: No Drugs: None Hx Prescription Drug Abuse: No Family History Family History: None, Reviewed & Not Pertinent Parental Family History Reviewed: Yes Children Family History Reviewed: Yes Sibling(s) Family History Reviewed.: Yes Medication/Allergy Home Medications: Acyclovir [Acyclovir 400 mg Tablet] 400 mg PO BID 06/10/19 Carvedilol [Coreg] 25 mg PO Q12 06/10/19 Montelukast Sodium [Singulair 10 mg Tablet] 10 mg PO DAILY 06/10/19 Omeprazole 20 mg PO DAILYP PRN 06/10/19 Ondansetron HCl [Zofran 8 mg Tablet] 8 mg PO Q8HP PRN 06/10/19 Potassium Chloride [Klor-Con 10 Meq Tablet ER] 20 meq PO DAILY 06/10/19 Pravastatin Sodium [Pravachol] 40 mg PO QHS 06/10/19 Calcium Carbonate [Os-Ruperto 500 mg Tablet (Oyster-Shell)] 500 mg PO BID #60 tablet 06/18/19 Colchicine [Colcrys 0.6 mg Tablet] 0.6 mg PO Q12 #60 tablet 06/18/19 Aspirin [Ecotrin 81 mg EC Tablet] 81 mg PO DAILY 10/04/19 Budesonide/Formoterol Fumarate [Symbicort Hfa 160-4.5 Mcg Inhaler 6 gm] 2 puff IH BID 10/04/19 Ergocalciferol (Vitamin D2) [Vitamin D2] 50 mcg PO WE@1000 10/04/19 Gabapentin [Neurontin 100 mg Capsule] 100 mg PO BID 10/04/19 Pregabalin [Lyrica 100 Mg Capsule] 100 mg PO Q12 10/04/19 Rivaroxaban [Xarelto] 2.5 mg PO BID 10/04/19 Allergies/Adverse Reactions: No Known Allergies Allergy (Verified 06/10/19 07:48) Review of Systems Constitutional: ABSENT: chills, fever(s), headache(s), weight gain, weight loss Eyes: ABSENT: visual disturbances Ears: ABSENT: hearing changes Cardiovascular: ABSENT: chest pain, dyspnea on exertion, edema, orthropnea, palpitations Respiratory: ABSENT: cough, hemoptysis Gastrointestinal: PRESENT: hematochezia Genitourinary: ABSENT: dysuria, hematuria Musculoskeletal: ABSENT: joint swelling Integumentary: ABSENT: rash, wounds Neurological: ABSENT: abnormal gait, abnormal speech, confusion, dizziness, focal weakness, syncope Psychiatric: ABSENT: anxiety, depression, homidical ideation, suicidal ideation Endocrine: ABSENT: cold intolerance, heat intolerance, menstrual abnormalities, polydipsia, polyuria Hematologic/Lymphatic: ABSENT: easy bleeding, easy bruising, lymphadenopathy Physical Exam Vital Signs: Temp Pulse Resp BP Pulse Ox 97.4 F 73 18 164/70 H 99 10/04/19 15:41 10/04/19 19:28 10/04/19 19:28 10/04/19 19:28 10/04/19 19:28 Intake & Output 10/03/19 10/04/19 10/05/19 06:59 06:59 06:59 Intake Total 360 Output Total 0 3 Balance 0 357 Weight 90.5 kg 90.5 kg General appearance: PRESENT: no acute distress, well-developed, well-nourished Head exam: PRESENT: atraumatic, normocephalic Eye exam: PRESENT: conjunctiva pink, EOMI, PERRLA Ear exam: PRESENT: normal external ear exam Mouth exam: PRESENT: moist, tongue midline Neck exam: PRESENT: full ROM Respiratory exam: PRESENT: clear to auscultation loki Cardiovascular exam: PRESENT: RRR, +S1, +S2 Pulses: PRESENT: normal dorsalis pedis pul, +2 pedal pulses bilateral Vascular exam: PRESENT: normal capillary refill GI/Abdominal exam: PRESENT: normal bowel sounds, soft Rectal exam: PRESENT: deferred Neurological exam: PRESENT: alert, awake, oriented to person, oriented to place, oriented to time, oriented to situation, CN II-XII grossly intact Psychiatric exam: PRESENT: appropriate affect, normal mood Skin exam: PRESENT: dry, intact, warm Results Laboratory Results: 10/03/19 21:00 10/03/19 21:00 10/03/19 10/03/19 10/03/19 21:00 21:00 21:00 WBC 4.5 RBC 4.43 Hgb 12.7 Hct 39.1 MCV 88 MCH 28.6 MCHC 32.4 RDW 17.5 H Plt Count 185 Seg Neutrophils % 63.0 Sodium 141.0 Potassium 4.1 Chloride 107 Carbon Dioxide 28 Anion Gap 6 BUN 24 H Creatinine 0.81 Est GFR ( Amer) > 60 Glucose 94 Lactic Acid Calcium 8.9 Phosphorus Magnesium Total Bilirubin 0.4 AST 21 Alkaline Phosphatase 60 Total Protein 5.5 L Albumin 3.3 L Amylase Lipase TSH Free T4 Blood Type A POSITIVE Antibody Screen NEGATIVE 10/03/19 10/03/19 10/03/19 21:00 21:00 21:38 WBC RBC Hgb Hct MCV MCH MCHC RDW Plt Count Seg Neutrophils % Sodium Potassium Chloride Carbon Dioxide Anion Gap BUN Creatinine Est GFR ( Amer) Glucose Lactic Acid 1.6 Calcium Phosphorus 3.2 Magnesium 1.6 Total Bilirubin AST Alkaline Phosphatase Total Protein Albumin Amylase 66 Lipase 36.0 TSH 0.17 L Free T4 1.70 Blood Type Antibody Screen 10/03/19 10/04/19 10/04/19 21:00 02:53 02:53 Creatine Kinase < 20 L Troponin I 0.015 < 0.012 10/04/19 10/04/19 10/04/19 09:00 09:00 14:50 Creatine Kinase 28 L 30 Troponin I < 0.012 10/04/19 14:50 Creatine Kinase Troponin I < 0.012 Impressions: Chest X-Ray 10/03/19 21:26 IMPRESSION: Low lung volume chest radiograph with enlargement of the cardiac silhouette. No acute process. Abdomen/Pelvis CT 10/03/19 21:28 IMPRESSION: Wall thickening in the colon suggesting colitis. Changes May BE infectious or inflammatory Lytic osseous lesions with pathologic fractures of the spine, similar to the previous Probable hemorrhagic or proteinaceous cyst in the right kidney. This could be further assessed with ultrasound. Assessment & Plan - Diagnosis (1) Rectal bleeding Is this a current diagnosis for this admission?: Yes Plan: Patient on anticoagulant with Xarelto she presented this morning to the emergency room for evaluation of rectal bleed, because she bled on Xarelto colonoscopy is indicated to rule out any neoplasm. Whenever patient have GI bleed on anticoagulant, GI endoscopy is indicated to rule out occult neoplasm (2) Atherosclerosis of coronary artery Qualifiers: Coronary Disease-Associated Artery/Lesion type: [place] artery [place] vs. transplanted heart: [place] heart Associated angina: without angina Qualified Code(s): I25.10 - Atherosclerotic heart disease of [place] coronary artery without angina pectoris Is this a current diagnosis for this admission?: Yes Plan: stable ,continue medication (3) Multiple myeloma Qualifiers: Multiple myeloma remission status: not in remission Qualified Code(s): C90.00 - Multiple myeloma not having achieved remission Is this a current diagnosis for this admission?: Yes Plan: on active treatment
[2019-10-05 06:17] LABS: ABSOLUTE EOSINOPHILS # (AUTO) 0.3 10^3/uL (0.0-0.6); ABSOLUTE LYMPHOCYTES (AUTO) 1.3 10^3/uL (0.5-4.7); ABSOLUTE MONOCYTES (AUTO) 0.3 10^3/uL (0.1-1.4); ABSOLUTE NEUT (AUTO) 4.2 10^3/uL (1.7-8.2); BASOPHILS % (AUTO) 0.8 % (0-2); EOSINOPHILS % (AUTO) 4.4 % (0-6); HEMATOCRIT 34.9 % (36.0-47.0); HEMOGLOBIN 11.5 g/dL (12.0-15.5); MEAN CORPUSCULAR HEMOGLOBIN 28.5 pg (27.0-33.4); MEAN CORPUSCULAR HGB CONC 33.1 g/dL (32.0-36.0); MEAN CORPUSCULAR VOLUME 86 fl (80-97); MONOCYTES % (AUTO) 5.3 % (3-13); PLATELET COUNT 170 10^3/uL (150-450); RED BLOOD COUNT 4.05 10^6/uL (3.72-5.28); RED CELL DISTRIBUTION WIDTH 16.9 % (11.5-14.0); SEGMENTED NEUTROPHILS % (AUTO) 68.5 % (42-78); TOTAL CELLS COUNTED % (AUTO) 100 %; WHITE BLOOD COUNT 6.1 10^3/uL (4.0-10.5)
[2019-10-05] MEDS: NORMAL SALINE 1000 ML 1,000 ML IV PRN (06:31)
[2019-10-05 06:36] LABS: ALBUMIN 3.3 g/dL (3.5-5.0); ALKALINE PHOSPHATASE 56 U/L (38-126); ANION GAP 6 (5-19); ASPARTATE AMINO TRANSFERASE 23 U/L (14-36); BILIRUBIN,TOTAL 0.5 mg/dL (0.2-1.3); BLOOD UREA NITROGEN 18 mg/dL (7-20); CALCIUM 7.5 mg/dL (8.4-10.2); CARBON DIOXIDE 28 mmol/L (22-30); CHLORIDE 107 mmol/L (98-107); GLUCOSE 79 mg/dL (75-110); POTASSIUM 3.4 mmol/L (3.6-5.0); TOTAL PROTEIN 5.5 g/dL (6.3-8.2)
[2019-10-05] MEDS ORDERED: PROPOFOL INJ 200 MG/20 ML VIAL IV ONE (08:20)
--- NOTE | 2019-10-05 09:10 | PDOC PROGRESS REPORT ---
Subjective Progress Note for:: 10/05/19 Subjective:: This is an 79-year-old female, taking Xarelto, presenting with GI bleeding. The patient's last colonoscopy was approximately 1 year ago and was reportedly normal. Her Xarelto was stopped several days ago. The patient's bleeding has slowed. She denies any abdominal pain, nausea, vomiting, fevers, chills, chest pain, shortness of breath, headache, orthostasis, blurry vision. Reason For Visit: RECTAL BLEEDING,MULTIPLE CO-MORBID CONDITION Physical Exam Vital Signs: Temp Pulse Resp BP Pulse Ox 98.0 F 89 17 132/64 H 98 10/05/19 08:02 10/05/19 08:02 10/05/19 08:02 10/05/19 08:02 10/05/19 08:02 Intake & Output 10/04/19 10/05/19 10/06/19 06:59 06:59 06:59 Intake Total 2289 Output Total 0 6 Balance 0 2283 Weight 90.5 kg 95 kg General appearance: PRESENT: no acute distress, cooperative, obese Head exam: PRESENT: atraumatic, normocephalic Eye exam: PRESENT: EOMI, PERRLA. ABSENT: scleral icterus Mouth exam: PRESENT: moist, neck supple Neck exam: ABSENT: meningismus, tenderness, thyromegaly, tracheal deviation Respiratory exam: PRESENT: clear to auscultation loki, unlabored. ABSENT: chest wall tenderness, tachypnea, wheezes Cardiovascular exam: ABSENT: tachycardia Pulses: PRESENT: normal radial pulses GI/Abdominal exam: PRESENT: soft. ABSENT: distended, firm, tenderness Rectal exam: PRESENT: deferred Extremities exam: ABSENT: clubbing Musculoskeletal exam: ABSENT: deformity Neurological exam: PRESENT: alert, awake, oriented to person, oriented to place, oriented to time, CN II-XII grossly intact. ABSENT: motor sensory deficit Psychiatric exam: ABSENT: agitated, anxious, depressed Focused psych exam: ABSENT: delusional Skin exam: ABSENT: cyanosis, erythema, jaundice Results Laboratory Results: 10/05/19 05:44 10/05/19 05:44 10/05/19 10/05/19 10/05/19 05:44 05:44 05:44 WBC 6.1 RBC 4.05 Hgb 11.5 L Hct 34.9 L MCV 86 MCH 28.5 MCHC 33.1 RDW 16.9 H Plt Count 170 Seg Neutrophils % 68.5 Sodium 141.0 Potassium 3.4 L Chloride 107 Carbon Dioxide 28 Anion Gap 6 BUN 18 Creatinine 0.75 Est GFR ( Amer) > 60 Glucose 79 Calcium 7.5 L Total Bilirubin 0.5 AST 23 Alkaline Phosphatase 56 Ammonia < 8.7 L Total Protein 5.5 L Albumin 3.3 L 10/03/19 10/04/19 10/04/19 21:00 02:53 02:53 Creatine Kinase < 20 L Troponin I 0.015 < 0.012 10/04/19 10/04/19 10/04/19 09:00 09:00 14:50 Creatine Kinase 28 L 30 Troponin I < 0.012 10/04/19 14:50 Creatine Kinase Troponin I < 0.012 Impressions: Chest X-Ray 10/03/19 21:26 IMPRESSION: Low lung volume chest radiograph with enlargement of the cardiac silhouette. No acute process. Abdomen/Pelvis CT 10/03/19 21:28 IMPRESSION: Wall thickening in the colon suggesting colitis. Changes May BE infectious or inflammatory Lytic osseous lesions with pathologic fractures of the spine, similar to the previous Probable hemorrhagic or proteinaceous cyst in the right kidney. This could be further assessed with ultrasound. Assessment & Plan - Diagnosis (1) Rectal bleeding Is this a current diagnosis for this admission?: Yes - Plan Summary Plan Summary: This is an 79-year-old female with hematochezia. Her Xarelto has been held. I would recommend consideration of holding this long-term. Plan for colonoscopy today, to ensure there are no surgical lesions within the colon. This has been discussed with the patient at length. Risks/benefits reviewed, informed consent obtained, and all questions answered.
[2019-10-05] MEDS: POTASSI CL 20 MEQ/50 ML RIDER 20 MEQ/50 ML RTUPB IV SCH ×2 (09:55→14:34)
--- NOTE | 2019-10-05 12:09 | Operative Report ---
Nonrecallable Operative Report DATE OF SURGERY: 10/05/19 PREOPERATIVE DIAGNOSIS: GI bleeding POSTOPERATIVE DIAGNOSIS: 1. No evidence of new or old blood in the colon. 2. Small, scattered diverticulosis throughout the colon. OPERATION: Colonoscopy to the cecum SURGEON: FRANKY HILL ANESTHESIA: LMAC TISSUE REMOVED OR ALTERED: None COMPLICATIONS: None apparent ESTIMATED BLOOD LOSS: None PROCEDURE: Procedure in detail: After informed consent was obtained, the patient was brought into the operating room and laid in the left lateral decubitus position. The colonoscope was inserted up the rectum, sigmoid colon, descending colon, across the transverse colon, down the ascending colon, and into the cecum. The ileocecal valve and appendiceal orifice were identified. The scope was then withdrawn, circumferentially noting the mucosa. The prep was excellent. Upon insertion and removal, there was no evidence of new or old blood within the colon. The scope was withdrawn past the ascending colon, transverse colon, down the descending colon, sigmoid colon, and into the rectum. In the rectum, a retroflexion maneuver was performed noting no significant internal hemorrhoids. The scope was straightened, air was suctioned from the rectum, the scope was removed, and the procedure was concluded. Please note there were a few, small, scattered diverticula throughout the descending and sigmoid colon. There was no evidence of active bleeding. At this time the procedure was concluded. All sponge, instrument, needle counts were correct x2. Condition: Stable.
[2019-10-05 16:32] VITALS: BP 139/59
--- NOTE | 2019-10-05 16:33 | PDOC DISCHARGE SUMMARY ---
Impression - Admit/DC Date/PCP Admission Date/Primary Care Provider: 10/03/19 23:57 JUAN CALDERON MD Discharge Date: 10/05/19 - Discharge Diagnosis (1) Rectal bleeding Is this a current diagnosis for this admission?: Yes (2) Atherosclerosis of coronary artery Is this a current diagnosis for this admission?: Yes (3) Multiple myeloma Is this a current diagnosis for this admission?: Yes - Additional Information Resuscitation Status: Full Code Discharge Diet: As Tolerated Discharge Activity: Activity As Tolerated, Balance Activity w/Rest Referrals: JUAN CALDERON MD [Primary Care Provider] - 10/13/19 10:15 am Home Medications: Acyclovir [Acyclovir 400 mg Tablet] 400 mg PO BID 06/10/19 Carvedilol [Coreg] 25 mg PO Q12 06/10/19 Montelukast Sodium [Singulair 10 mg Tablet] 10 mg PO DAILY 06/10/19 Omeprazole 20 mg PO DAILYP PRN 06/10/19 Ondansetron HCl [Zofran 8 mg Tablet] 8 mg PO Q8HP PRN 06/10/19 Potassium Chloride [Klor-Con 10 Meq Tablet ER] 20 meq PO DAILY 06/10/19 Pravastatin Sodium [Pravachol] 40 mg PO QHS 06/10/19 Calcium Carbonate [Os-Ruperto 500 mg Tablet (Oyster-Shell)] 500 mg PO BID #60 tablet 06/18/19 Colchicine [Colcrys 0.6 mg Tablet] 0.6 mg PO Q12 #60 tablet 06/18/19 Aspirin [Ecotrin 81 mg EC Tablet] 81 mg PO DAILY 10/04/19 Budesonide/Formoterol Fumarate [Symbicort HFA 160-4.5 mcg Inhaler 6 gm] 2 puff IH BID 10/04/19 Ergocalciferol (Vitamin D2) [Vitamin D2] 50 mcg PO WE@1000 10/04/19 Gabapentin [Neurontin 100 mg Capsule] 100 mg PO BID 10/04/19 Pregabalin [Lyrica 100 mg Capsule] 100 mg PO Q12 10/04/19 Rivaroxaban [Xarelto] 2.5 mg PO BID 10/04/19 History of Present Illiness History of Present Illness: REGULO HINES is a 79 year old female, Patient is well-known to me, she has a history of ischemic heart disease,, multiple myeloma, she is on Xarelto partly because of history of ischemic heart disease and also partly because she had superficial thrombophlebitis. She came to the emergency room for evaluation of rectal bleeding. In the emergency room CT scan of the pelvis and abdomen was done, it demonstrated thickening of the colon, sigmoid suggestive of colitis but because patient had a rectal bleed while on anticoagulant colonoscopy is indicated to rule out neoplasm especially in this patient with multiple myeloma Hospital Course Hospital Course: Patient was admitted for the management of rectal bleed, she was seen by the surgicalist, she underwent colonoscopy, it demonstrated diverticulosis there was no evidence of old or fresh blood in the colon there was no neoplasm identified, patient is stable for discharge to be discharged home today. Physical Exam Vital Signs: Temp Pulse Resp BP Pulse Ox 97.3 F 75 16 132/64 H 97 10/05/19 14:36 10/05/19 14:36 10/05/19 14:36 10/05/19 14:36 10/05/19 14:36 Intake & Output 10/04/19 10/05/19 10/06/19 06:59 06:59 06:59 Intake Total 2289 400 Output Total 0 6 0 Balance 0 2283 400 Weight 90.5 kg 95 kg General appearance: PRESENT: no acute distress Eye exam: PRESENT: PERRLA Respiratory exam: PRESENT: clear to auscultation loki Cardiovascular exam: PRESENT: +S1, +S2 GI/Abdominal exam: PRESENT: soft Neurological exam: PRESENT: alert Results Laboratory Results: WBC 6.1 10^3/uL (4.0-10.5) 10/05/19 05:44 RBC 4.05 10^6/uL (3.72-5.28) 10/05/19 05:44 Hgb 11.5 g/dL (12.0-15.5) L 10/05/19 05:44 Hct 34.9 % (36.0-47.0) L 10/05/19 05:44 MCV 86 fl (80-97) 10/05/19 05:44 MCH 28.5 pg (27.0-33.4) 10/05/19 05:44 MCHC 33.1 g/dL (32.0-36.0) 10/05/19 05:44 RDW 16.9 % (11.5-14.0) H 10/05/19 05:44 Plt Count 170 10^3/uL (150-450) 10/05/19 05:44 Lymph % (Auto) 21.0 % (13-45) 10/05/19 05:44 Hudspeth % (Auto) 5.3 % (3-13) 10/05/19 05:44 Eos % (Auto) 4.4 % (0-6) 10/05/19 05:44 Baso % (Auto) 0.8 % (0-2) 10/05/19 05:44 Absolute Neuts (auto) 4.2 10^3/uL (1.7-8.2) 10/05/19 05:44 Absolute Lymphs (auto) 1.3 10^3/uL (0.5-4.7) 10/05/19 05:44 Absolute Monos (auto) 0.3 10^3/uL (0.1-1.4) 10/05/19 05:44 Absolute Eos (auto) 0.3 10^3/uL (0.0-0.6) 10/05/19 05:44 Absolute Basos (auto) 0.0 10^3/uL (0.0-0.2) 10/05/19 05:44 Seg Neutrophils % 68.5 % (42-78) 10/05/19 05:44 PT 17.1 SEC (11.4-15.4) H 10/04/19 02:53 INR 1.38 10/04/19 02:53 APTT 30.5 SEC (23.5-35.8) 10/04/19 02:53 Sodium 141.0 mmol/L (137-145) 10/05/19 05:44 Potassium 3.4 mmol/L (3.6-5.0) L 10/05/19 05:44 Chloride 107 mmol/L (98-107) 10/05/19 05:44 Carbon Dioxide 28 mmol/L (22-30) 10/05/19 05:44 Anion Gap 6 (5-19) 10/05/19 05:44 BUN 18 mg/dL (7-20) 10/05/19 05:44 Creatinine 0.75 mg/dL (0.52-1.25) 10/05/19 05:44 Est GFR ( Amer) > 60 (>60) 10/05/19 05:44 Est GFR (MDRD) Non-Af > 60 (>60) 10/05/19 05:44 Glucose 79 mg/dL (75-110) 10/05/19 05:44 Lactic Acid 1.6 mmol/L (0.7-2.1) 10/03/19 21:38 Calcium 7.5 mg/dL (8.4-10.2) L 10/05/19 05:44 Phosphorus 3.2 mg/dL (2.5-4.5) 10/03/19 21:00 Magnesium 1.6 mg/dL (1.6-2.3) 10/03/19 21:00 Total Bilirubin 0.5 mg/dL (0.2-1.3) 10/05/19 05:44 Direct Bilirubin 0.0 mg/dL (0.0-0.4) 10/05/19 05:44 Neonat Total Bilirubin Not Reportable 10/05/19 05:44 Neonat Direct Bilirubin Not Reportable 10/05/19 05:44 Neonat Indirect Bili Not Reportable 10/05/19 05:44 AST 23 U/L (14-36) 10/05/19 05:44 ALT 16 U/L (<35) 10/05/19 05:44 Alkaline Phosphatase 56 U/L (38-126) 10/05/19 05:44 Ammonia < 8.7 umol/L (9-33) L 10/05/19 05:44 Creatine Kinase 30 U/L (30-135) 10/04/19 14:50 Troponin I < 0.012 ng/mL 10/04/19 14:50 Total Protein 5.5 g/dL (6.3-8.2) L 10/05/19 05:44 Albumin 3.3 g/dL (3.5-5.0) L 10/05/19 05:44 Amylase 66 U/L (30-110) 10/03/19 21:00 Lipase 36.0 U/L (23-300) 10/03/19 21:00 TSH 0.17 uIU/mL (0.47-4.68) L 10/03/19 21:00 Free T4 1.70 ng/dL (0.78-2.19) 10/03/19 21:00 POC Stool Occult Blood POSITIVE (NEGATIVE) 10/03/19 22:10 Blood Type A POSITIVE 10/03/19 21:00 Antibody Screen NEGATIVE 10/03/19 21:00 10/03/19 10/04/19 10/04/19 21:00 02:53 09:00 Troponin I 0.015 < 0.012 < 0.012 10/04/19 14:50 Troponin I < 0.012 Impressions: Chest X-Ray 10/03/19 21:26 IMPRESSION: Low lung volume chest radiograph with enlargement of the cardiac silhouette. No acute process. Abdomen/Pelvis CT 10/03/19 21:28 IMPRESSION: Wall thickening in the colon suggesting colitis. Changes May BE infectious or inflammatory Lytic osseous lesions with pathologic fractures of the spine, similar to the previous Probable hemorrhagic or proteinaceous cyst in the right kidney. This could be further assessed with ultrasound. Stroke Is this a Stroke Patient?: No Acute Heart Failure - Is this a Heart Failure Patient?: No
== END 2019-10-05 17:50 | disposition home or self-care (01) | DRG 378 ==
LOC: ER 20:01 → EH 23:57 → 3S 10-04 02:32
PROVIDERS: ADMIT Internal Medicine; ATTEND Internal Medicine
PROC: 0DJD8ZZ Inspection of Lower Intestinal Tract, Via Natural or Artificial Opening Endoscopic (ICD-10-PCS; principal; 2019-10-05 10:45)
DX: K57.31 Diverticulosis of large intestine without perforation or abscess with bleeding (principal); C90.00 Multiple myeloma not having achieved remission; K52.9 Noninfective gastroenteritis and colitis, unspecified; E78.5 Hyperlipidemia, unspecified; F32.9 Major depressive disorder, single episode, unspecified; I25.10 Atherosclerotic heart disease of native coronary artery without angina pectoris; I25.9 Chronic ischemic heart disease, unspecified; I10 Essential (primary) hypertension; M19.90 Unspecified osteoarthritis, unspecified site; I44.7 Left bundle-branch block, unspecified; R60.9 Edema, unspecified; Z79.01 Long term (current) use of anticoagulants; Z79.82 Long term (current) use of aspirin; Z86.718 Personal history of other venous thrombosis and embolism; T45.1X5S Adverse effect of antineoplastic and immunosuppressive drugs, sequela; Z95.5 Presence of coronary angioplasty implant and graft; Z79.899 Other long term (current) drug therapy
CPT/HCPCS: 00811; 36415; 45378; 71045; 74177; 80053; 82140; 82150; 82550; 83605; 83690; 83735; 84100; 84439; 84443; 84484; 85025; 85610; 85730; 86850; 86900; 86901; 93005; 93010; 96374; 99285; J2405; J2543; J2704; J3480; J3490; J7030

== ENCOUNTER → 2020-06-27 | Outpatient (CLI) | payer MEDICARE | LOC: OD 11:08 | PROVIDERS: ATTEND Internal Medicine Hematology & Oncology | DX: C90.00 Multiple myeloma not having achieved remission (principal) | CPT/HCPCS: 36415; 86850; 86900; 86901 ==

== ENCOUNTER 2020-08-15 06:49 | Day surgery (SDC) | payer MEDICARE ==
[~2020-08-15 06:49] MED LIST changes: -CALCIUM GLUCONATE 2,000 MG in DEXTROSE 5%-WATER 100 ML IV PRN; +CEFAZOLIN 1 GM/D5W RTU 1 GM/50 ML RTUPB IV ONE; +CEFAZOLIN 1 GM/D5W RTU 1 GM/50 ML RTUPB IV PRN; +FENTANYL CITRATE INJ/PF 100 MCG/2 ML AMPUL ONE; +LACTATED RINGERS 1000 ML IV PRN; +LIDOCAINE 0.5% INJ-PF (5 MG/ML) 50 ML SDV SUBCUT PRN; -MAGNESIUM SULFATE 4 GM/D5W 100 ML IV PRN
[2020-08-15] MEDS ORDERED: ONDANSETRON HCL INJ/PF 4 MG/2 ML SDV ONE (06:50)
[2020-08-15] MEDS ORDERED: LIDOCAINE 2% INJ (20 MG/ML) 20 ML MDV ONE (06:50)
[2020-08-15] MEDS ORDERED: MIDAZOLAM 2 MG/2 ML INJ ONE (06:50)
[2020-08-15] MEDS ORDERED: PROPOFOL INJ 200 MG/20 ML VIAL IV ONE (06:50)
[2020-08-15 07:36] LABS: ABSOLUTE BASOPHILS # (AUTO) 0.1 10^3/uL (0.0-0.2); ABSOLUTE LYMPHOCYTES (AUTO) 0.8 10^3/uL (0.5-4.7); ABSOLUTE MONOCYTES (AUTO) 0.1 10^3/uL (0.1-1.4); ABSOLUTE NEUT (AUTO) 7.9 10^3/uL (1.7-8.2); BASOPHILS % (AUTO) 0.6 % (0-2); HEMATOCRIT 39.2 % (36.0-47.0); LYMPHOCYTES % (AUTO) 8.8 % (13-45); MEAN CORPUSCULAR HEMOGLOBIN 27.9 pg (27.0-33.4); MEAN CORPUSCULAR HGB CONC 33.2 g/dL (32.0-36.0); MEAN CORPUSCULAR VOLUME 84 fl (80-97); MONOCYTES % (AUTO) 1.7 % (3-13); PLATELET COUNT 220 10^3/uL (150-450); RED BLOOD COUNT 4.67 10^6/uL (3.72-5.28); SEGMENTED NEUTROPHILS % (AUTO) 88.9 % (42-78); TOTAL CELLS COUNTED % (AUTO) 100 %; WHITE BLOOD COUNT 8.9 10^3/uL (4.0-10.5)
[2020-08-15 07:43] LABS: INTERNATIONAL RATION (INR) 1.05; PROTHROMBIN TIME 13.9 SEC (11.4-15.4)
[2020-08-15 07:44] LABS: PARTIAL THROMBOPLASTIN TIME 25.9 SEC (23.5-35.8)
[2020-08-15 07:56] LABS: ANION GAP 7 (5-19); BLOOD UREA NITROGEN 19 mg/dL (7-20); CALCIUM 9.2 mg/dL (8.4-10.2); CARBON DIOXIDE 27 mmol/L (22-30); CHLORIDE 108 mmol/L (98-107); GLUCOSE 141 mg/dL (75-110)
[2020-08-15] MEDS ORDERED: LIDOCAINE 1%/EPINEPHRINE INJ 20 ML VIAL ONE (08:40)
[2020-08-15] MEDS ORDERED: ONDANSETRON HCL INJ/PF 4 MG/2 ML SDV IV PRN (09:34)
[2020-08-15] MEDS ORDERED: DIPHENHYDRAMINE HCL 50 MG/ML VIAL IV PRN (09:34)
[2020-08-15] MEDS ORDERED: MEPERIDINE HCL/PF INJ 25 MG/1 ML DISP.SYRIN IV PRN (09:34)
[2020-08-15] MEDS ORDERED: FENTANYL CITRATE INJ/PF 100 MCG/2 ML AMPUL IV PRN ×3 (09:34)
--- NOTE | 2020-08-15 10:02 | Operative Report ---
Operative Report DATE OF SURGERY: 08/15/20 PREOPERATIVE DIAGNOSIS: Multiple myeloma POSTOPERATIVE DIAGNOSIS: Same OPERATION: 1. Ultrasound directed insertion of a single-lumen [id number] catheter into the right internal jugular vein. 2. Intraoperative fluoroscopy with interpretation SURGEON: KATIE MICHEL ANESTHESIA: LMAC TISSUE REMOVED OR ALTERED: None COMPLICATIONS: None ESTIMATED BLOOD LOSS: Scant INTRAOPERATIVE FINDINGS: See below PROCEDURE: The patient was taken to the preop holding her to the main operating room where LMAC anesthesia was induced. Arms were tucked to the patient's side. The right neck, chest wall were exposed, breast taped inferiorly, and the entire chest and neck prepped and draped with Betadine. Surgical plan and surgical timeout were conducted. Markings were made on the skin for a single port placement right internal jugular vein with the port in the subclavian position. Both sites were anesthetized with 1% plain lidocaine. A aman was made in the skin with a #11 blade, and using ultrasound real-time as a guide, the right internal jugular vein was cannulated with a micro needle and wire. The subclavian site for port placement was anesthetized with 1% plain lidocaine. A 3 and half centimeter incision was made with a #15 blade, port pocket developed large enough to accommodate a single-chamber port. The catheter was then trimmed to the appropriate length, tunnel between the 2 incisions, attached to the port with the plastic ring and port tucked into the subclavian pocket. Under fluoroscopic guidance, the micro wire was switched over to a conventional 0.030 inch guidewire. The 8 German dilator introducer sheath was threaded over the guidewire, guidewire and dilator removed, and free catheter fragment threaded into the strip away sheath. The sheath was removed, leaving the catheter in good position with the tip in the right atrium, no evidence of kinking at the neck. There is no ectopy. He needle used to aspirate and flush the chamber with heparinized saline. Wounds closed with 3-0 Vicryl benzoin and Steri-Strips. Patient tolerated the procedure well, taken to the recovery room in stable condition.
--- NOTE | 2020-08-15 10:05 | Discharge Summary ---
Discharge Summary (SDC) - Discharge Final Diagnosis: Multiple myeloma Date of Surgery: 08/15/20 Discharge Date: 08/15/20 Condition: Good Treatment or Instructions: Patient may use support. May shower in 48 hours. Patient may take home pain medications as needed. Patient to follow-up with [facility] in 2 weeks. Referrals: JUAN CALDERON MD [Primary Care Provider] - Discharge Diet: As Tolerated Discharge Activity: Activity As Tolerated Report the Following to Your Physician Immediately: Shortness of Breath, Increase in Pain, Fever over 101 Degrees
--- NOTE | 2020-08-15 10:25 | EKG REPORT ---
SEVERITY:- ABNORMAL ECG - SINUS RHYTHM FIRST DEGREE AV BLOCK LEFT BUNDLE BRANCH BLOCK : Confirmed by: Nazia Garibay MD 15-Aug-2020 10:24:40
[2020-08-15 12:17] VITALS: BP 168/69
--- NOTE | 2020-08-15 15:09 | RADIOLOGY REPORT (SQ) ---
EXAM DESCRIPTION: FLUORO/CV PLACEMENT IMAGES COMPLETED DATE/TIME: 08/15/2020 1:39 pm REASON FOR STUDY: RIGHT PORT-A-CATH PLACEMENT Z85.79 PRSNL HX OF MALIG NEOPLM OF LYMPHOID, HEMATPOE TC RE Z79.01 [facility]PC (CURRENT) USE OF ANTICOAGULANTS COMPARISON: None. FLUOROSCOPY TIME: 0.1 minute 2 images saved to PACS. TECHNIQUE: Intra-operative images acquired during surgical procedure to evaluate progress. NUMBER OF IMAGES: 2 LIMITATIONS: None. FINDINGS: Right-sided port tip overlying SVC. IMPRESSION: IMAGE(S) OBTAINED DURING PROCEDURE. COMMENT: Quality ID [id number]: Final reports for procedures using fluoroscopy that document radiation exp osure indices, or exposure time and number of fluorographic images (if radiation exposure indices are not available) Please consult full operative report of the attending physician for description of the procedure. TECHNICAL DOCUMENTATION: JOB ID: [id number] 2010 [employer]- All Rights Reserved Reading location - IP/workstation name: [email or web address]
== END 2020-08-15 12:00 | disposition home or self-care (01) ==
LOC: OROUT 06:49
PROVIDERS: ATTEND Surgery
DX: C90.02 Multiple myeloma in relapse (principal); G62.0 Drug-induced polyneuropathy; T45.1X5S Adverse effect of antineoplastic and immunosuppressive drugs, sequela; Z79.01 Long term (current) use of anticoagulants; Z01.812 Encounter for preprocedural laboratory examination; Z20.822 Contact with and (suspected) exposure to COVID-19; Z92.21 Personal history of antineoplastic chemotherapy; R26.89 Other abnormalities of gait and mobility; M19.90 Unspecified osteoarthritis, unspecified site; I25.10 Atherosclerotic heart disease of native coronary artery without angina pectoris; E66.9 Obesity, unspecified; I10 Essential (primary) hypertension; Z85.42 Personal history of malignant neoplasm of other parts of uterus; Z79.82 Long term (current) use of aspirin; J45.909 Unspecified asthma, uncomplicated; E78.00 Pure hypercholesterolemia, unspecified; Z95.5 Presence of coronary angioplasty implant and graft; Z99.3 Dependence on wheelchair; Z68.34 Body mass index [BMI] 34.0-34.9, adult
CPT/HCPCS: 36415; 85025; 85610; 85730; 80048; 77001; 93005; 93010; 36561; U0003; J3490 ×2; J0690; J3010; J2405; J2704; J1642; C9803; 87635; C1752; C1788; J2250